=== PATIENT | female | born 1940 | race Caucasian/White ===

== ENCOUNTER → 2019-05-08 | Outpatient (CLI) | payer MEDICARE ==
[~2019-05-08] MED LIST: CATHETER FLUSH 10 ML SYR IV PRN; HOLD METFORMIN - RECEIVED CONTRAST 20 ML VIAL IV SCH; IOHEXOL 350 MG/ML 100 ML (OMNIPAQUE 350) VIAL IV ONE; NS 100 ML (IVPB) BAG IV ONE
--- NOTE | 2019-05-08 17:12 | Diagnostic Imaging Report ---
PROCEDURE: CT abdomen and pelvis with contrast. TECHNIQUE: Multiple contiguous axial images were obtained through the abdomen and pelvis after administration of intravenous contrast. Auto Exposure Controls were utilized during the CT exam to meet ALARA standards for radiation dose reduction. INDICATION: Left ovarian mass versus cyst seen on outside ultrasound. History of melanoma, hysterectomy. COMPARISON: None. FINDINGS: The lung bases are clear. The heart is normal in size. There is no pericardial effusion. The liver demonstrates no focal lesions. The spleen appears normal. The pancreas is normal. The adrenal glands appear normal. The kidneys are unremarkable with no hydronephrosis or masses seen. The bowel loops are nondistended without obstruction seen. The appendix is not seen. No secondary findings of appendicitis are seen. There is lluc-uy-[id number] stool in the colon. There is diverticulosis of the sigmoid colon without diverticulitis. There is a small amount of free fluid in the pelvis. Clips are noted in the pelvis. No lymphadenopathy is seen. There is heterogeneous increased density in the left abdominal omentum, concerning for caking and metastatic disease. The ovaries are seen bilaterally, with no significant enlargement or solid masses, although there is mild adjacent free fluid. There are degenerative changes in the spine with no acute osseous abnormality seen. IMPRESSION: 1. Left abdominal omental caking, concerning for metastatic disease. A primary mass is not identified, although there is mild free fluid in the pelvis. Please correlate with previous outside ultrasound. 2. Colonic diverticulosis without diverticulitis. Dictated by: Dictated on workstation # [id number]
== END ==
LOC: RAD FS 16:05
PROVIDERS: ATTEND Family Medicine
DX: N83.8 Other noninflammatory disorders of ovary, fallopian tube and broad ligament (principal); K66.8 Other specified disorders of peritoneum; K57.30 Diverticulosis of large intestine without perforation or abscess without bleeding; Z90.710 Acquired absence of both cervix and uterus; Z85.820 Personal history of malignant melanoma of skin
CPT/HCPCS: 74177

== ENCOUNTER → 2019-05-30 | Outpatient (CLI) | payer MEDICARE ==
[~2019-05-30] VITALS: Ht 154.9 cm; Wt 70.1 kg
[~2019-05-30] MED LIST changes: +ALPR0.5T PO; +ATOR10TA66 PO; +CALC600T12 PO; +CATHETER FLUSH 10 ML SYR IV SCH; -HOLD METFORMIN - RECEIVED CONTRAST 20 ML VIAL IV SCH; +HYDR-3812 PO; +HYDR12.5 PO; +HYDROcodone/APAP 5 MG/325 MG (LORTAB) TAB PO PRN; -IOHEXOL 350 MG/ML 100 ML (OMNIPAQUE 350) VIAL IV ONE; +LIDOCAINE 1% INJ 20 ML 20 ML VIAL INJ ONE; +LISI40TA PO; +MELO15TA39 PO; +MIDAZOLAM 2 MG/2 ML (VERSED) VIAL IVP ONE; +MULT-178 PO; -NS 100 ML (IVPB) BAG IV ONE; +NS IV 1000 ML 1,000 ML IV STA; +fentaNYL INJECTION 100 MCG/2 ML AMP IVP ONE
--- NOTE | 2019-05-30 07:00 | NUR ---
PATIENT IN ROOM WITH FAMILY PRESENT. ORIENTED TO ROOM AND CALL LIGHT. VITAL SIGNS STABLE ON ROOM AIR.
[2019-05-30 09:05] LABS: BASOPHILS # (AUTO) 0.1 10^3/uL (0.0-0.1); BASOPHILS % (AUTO) 1 % (0-10); EOSINOPHILS # (AUTO) 0.1 10^3/uL (0.0-0.3); EOSINOPHILS % (AUTO) 1 % (0-10); HEMATOCRIT 39 % (35-52); HEMOGLOBIN 12.8 G/DL (11.5-16.0); LYMPHOCYTES # (AUTO) 2.4 X 10^3 (1.0-4.0); LYMPHOCYTES % (AUTO) 36 % (12-44); MEAN CORPUSCULAR HEMOGLOBIN 30 PG (25-34); MEAN CORPUSCULAR HGB CONC 33 G/DL (32-36); MEAN CORPUSCULAR VOLUME 91 FL (80-99); MONOCYTES # (AUTO) 0.6 X 10^3 (0.0-1.0); MONOCYTES % (AUTO) 9 % (0-12); NEUTROPHILS # (AUTO) 3.6 X 10^3 (1.8-7.8); NEUTROPHILS % (AUTO) 53 % (42-75); PLATELET COUNT 316 10^3/uL (130-400); RED CELL DISTRIBUTION WIDTH 14.8 % (10.0-14.5); WHITE BLOOD COUNT 6.8 10^3/uL (4.3-11.0)
[2019-05-30 09:17] LABS: INR 0.9 (0.8-1.4); PROTHROMBIN TIME PATIENT 12.8 SEC (12.2-14.7)
[2019-05-30 09:45] VITALS: BP 171/72
[2019-05-30 09:50] VITALS: BP 155/65
[2019-05-30 09:55] VITALS: BP 141/57
[2019-05-30 10:10] VITALS: BP 154/86
--- NOTE | 2019-05-30 10:35 | NUR ---
PATIENT SITTING UP IN BED WITH DRINK OF WATER. AT BEDSIDE. PATIENT STATES NO PAIN OR NEEDS AT THIS TIME. WILL CONTINUE TO MONITOR.
[2019-05-30 10:43] VITALS: BP 134/78
--- NOTE | 2019-05-30 10:54 | Pre-Op Note & Conscious Sedat ---
Pre-Operative Progress Note H&P Reviewed The H&P was reviewed, patient examined and no changes noted. Date H&P Reviewed: May 30, 2019 Time H&P Reviewed: 09:00 Pre-Op Diagnosis: abdominal mass Conscious Sedation Pre-Proced Time 09:00 ASA Score 2 For ASA 3 and 4: Consider anesthesia and medical clearance. Also, for patients with a history of failed moderate sedation consider anesthesia. Airway Lungs Heart ASA score ASA 1: a normal healthy patient ASA 2: a patient with a mild systemic disease (mid diabetes, controlled hypertension, obesity ASA 3: a patient with a severe systemic disease that limits activity (angina, COPD, prior Myocardial infarction) ASA 4: a patient with an incapacitating disease that is a constant threat to life (CHF, renal failure) ASA 5: a moribund patient not expected to survive 24 hrs. (ruptured aneurysm) ASA 6: a declared brain- patient whose organs are being harvested. For emergent operations, add the letter E after the classification Mallampati Classification Grade 2 Sedation Plan Analgesia, Amnesia, Plan communicated to team members, Discussed options with patient/fam, Discussed risks with patient/fam The patient is an appropriate candidate to undergo the planned procedure, sedation, and anesthesia. The patient immediately re-assessed prior to indication. EVERETTE IRAHETA MD May 30, 2019 10:54
--- NOTE | 2019-05-30 11:03 | Diagnostic Imaging Report ---
INDICATION: Abnormal prior CT demonstrating a questionable omental caking. Patient presents for CT-guided biopsy. FINDINGS: Patient was brought to the CT suite, placed on table in the prone position. Axial imaging of the abdomen was performed to evaluate appropriate entry site. Study was performed utilizing conscious sedation with radiology nursing and constant patient monitoring. Patient was administered a total of 100 mcg of fentanyl intravenously and 1 mg of Versed intravenously. Total procedure time was 6 minutes. Anterior abdomen was prepped and draped in the usual sterile fashion. A small amount of 1% lidocaine was utilized for local anesthesia. 18-gauge Temno needle was advanced, placed with its tip in the center of the area of questionable omental caking in the anterior left abdomen. Total of four core biopsies were obtained. Needle was withdrawn and hemostasis was obtained using manual compression. Patient tolerated the procedure well and left the department in stable condition. IMPRESSION: CT-guided biopsy of the area of omental caking in the anterior left abdomen, utilizing conscious sedation. Pathology results are currently pending. Dictated by: Dictated on workstation # [id number]
[2019-05-30 12:09] VITALS: BP 134/70
== END ==
LOC: RAD 06:48 → 4TH 06:50
PROVIDERS: ATTEND Nurse Practitioner Family
DX: R19.00 Intra-abdominal and pelvic swelling, mass and lump, unspecified site (principal)
CPT/HCPCS: 36415; 77012; 85025; 85610; 85730; 87081; 88307; 88341; 88342; 88360; 99156

== ENCOUNTER 2019-06-16 05:59 | Outpatient (CLI) | payer MEDICARE ==
[~2019-06-16] VITALS: Ht 154.9 cm; Wt 70.1 kg
[~2019-06-16 05:59] MED LIST changes: -ALPR0.5T PO; -CALC600T12 PO; -CATHETER FLUSH 10 ML SYR IV PRN; -CATHETER FLUSH 10 ML SYR IV SCH; -HYDR-3812 PO; -HYDROcodone/APAP 5 MG/325 MG (LORTAB) TAB PO PRN; -LIDOCAINE 1% INJ 20 ML 20 ML VIAL INJ ONE; -MIDAZOLAM 2 MG/2 ML (VERSED) VIAL IVP ONE; -MULT-178 PO; -NS IV 1000 ML 1,000 ML IV STA; -fentaNYL INJECTION 100 MCG/2 ML AMP IVP ONE
[2019-06-16] MEDS ORDERED: MULT-178 PO (16:21)
[2019-06-16] MEDS ORDERED: CALC600T12 PO (16:21)
== END 2019-06-16 16:32 | disposition home or self-care (01) ==
LOC: PREOP 05:59
PROVIDERS: ATTEND Surgery
DX: Z01.818 Encounter for other preprocedural examination (principal)

== ENCOUNTER → 2019-06-18 | Outpatient (CLI) | payer MEDICARE ==
[~2019-06-18] MED LIST changes: +ALPR0.5T PO; +CALC600T12 PO; +CATHETER FLUSH 10 ML SYR IV PRN; +HOLD METFORMIN - RECEIVED CONTRAST 20 ML VIAL IV SCH; +HYDR-3812 PO; +IOHEXOL 350 MG/ML 100 ML (OMNIPAQUE 350) VIAL IV ONE; +MULT-178 PO; +NS 100 ML (IVPB) BAG IV ONE
--- NOTE | 2019-06-18 11:12 | Diagnostic Imaging Report ---
PROCEDURE: CT chest with contrast only. TECHNIQUE: Multiple contiguous axial images were obtained through the chest after administration of intravenous contrast. Auto Exposure Controls were utilized during the CT exam to meet ALARA standards for radiation dose reduction. INDICATION: Patient with history of ovarian cancer and melanoma. Evaluate for metastatic disease. COMPARISON: None. FINDINGS: TRACHEA AND MAIN BRONCHI: Patent without evidence of tracheal or endobronchial lesion. LUNGS AND PLEURA: There is a 2 mm pulmonary nodule in the right upper lobe (image 33, series 3). There is a 7 mm groundglass nodule in the left lower lobe (image 75-76, series 3). There is a 4 mm calcified pulmonary nodule in the left lower lobe in the costophrenic angle. No pleural effusion or pneumothorax. MEDIASTINUM AND VIRAJ: Visualized thyroid gland is normal. No mediastinal or hilar lymphadenopathy is demonstrated. Calcified subcarinal lymph nodes likely represent sequela of prior granulomatous disease. Esophagus is nondistended. HEART AND VESSELS: Heart is normal in size. No pericardial effusion. Thoracic aorta is nonaneurysmal. DIAPHRAGM AND UPPER ABDOMEN: There is an oval hyperdense focus in the right hepatic dome which measures 5 x 6 mm (image 77, series 2). This is not definitely seen on prior imaging. Ill-defined scattered soft tissue density is demonstrated in the omental fat of the left mid abdomen. Incidental note is made of a punctate nonobstructing renal calculus in the left interpolar region collecting system. CHEST WALL: Unremarkable. BONES: Mild degenerative changes involve the spine. No acute osseous abnormality. No concerning osseous lesion. IMPRESSION: There is a 7 mm groundglass nodule in the left lower lobe. Continued surveillance is recommended with followup CT in three to six months to confirm persistence, per Fleischner Society recommendations (Radiology, 2017 José;284(1):228-243). There is also a 2 mm nodule in the right upper lobe, which can be reevaluated at that time. There is an ill-defined sub-centimeter hyperdensity in the right hepatic dome, which is indeterminate based on today's exam. This is not seen on the prior exam and is either new or is visualized today secondary to phase of contrast imaging. Given the patient's history of malignancy, follow-up hepatic protocol MRI is recommended in 3-6 months, per [employer] Incidental Findings Committee white paper management recommendations (JACR 2017;14:4457-9137). Omental caking is again demonstrated in the left abdomen. Nonobstructing left renal calculus. Dictated by: Dictated on workstation # [id number]
== END ==
LOC: RAD FS 08:09
PROVIDERS: ATTEND Internal Medicine Hematology & Oncology
DX: C56.9 Malignant neoplasm of unspecified ovary (principal); C43.9 Malignant melanoma of skin, unspecified; R91.8 Other nonspecific abnormal finding of lung field; K76.89 Other specified diseases of liver; N20.0 Calculus of kidney; K66.8 Other specified disorders of peritoneum
CPT/HCPCS: 71260

== ENCOUNTER 2019-06-19 08:22 | Day surgery (SDC) | payer MEDICARE ==
[2019-06-19] VITALS (8 sets, daily range): BP systolic 133–147; BP diastolic 66–75
[~2019-06-19] VITALS: Ht 154.9 cm; Wt 70.1 kg
[~2019-06-19 08:22] MED LIST changes: -ALPR0.5T PO; -CATHETER FLUSH 10 ML SYR IV PRN; -HOLD METFORMIN - RECEIVED CONTRAST 20 ML VIAL IV SCH; -HYDR-3812 PO; -IOHEXOL 350 MG/ML 100 ML (OMNIPAQUE 350) VIAL IV ONE; -NS 100 ML (IVPB) BAG IV ONE
[2019-06-19] MEDS ORDERED: ceFAZolin 2 GM/50 ML NS 50 ML IV ONE (08:45)
[2019-06-19] MEDS ORDERED: CATHETER FLUSH 10 ML SYR IV PRN (09:15)
[2019-06-19] MEDS ORDERED: MIDAZOLAM 2 MG/2 ML (VERSED) VIAL ONE ×2 (09:23→09:59)
[2019-06-19] MEDS ORDERED: LACTATED RINGERS 1,000 ML IV PRN (09:40)
[2019-06-19] MEDS ORDERED: MIDAZOLAM 2 MG/2 ML (VERSED) VIAL IVP ONE (09:45)
[2019-06-19] MEDS ORDERED: proPOfol 200 MG/20 ML (DIPRIVAN) VIAL IV ONE (09:58)
[2019-06-19] MEDS ORDERED: fentaNYL INJECTION 100 MCG/2 ML AMP ONE (09:59)
[2019-06-19] MEDS ORDERED: LIDOCAINE/EPI 1%-1:100,000 (XYLOCAINE) 20ML ONE (10:12)
[2019-06-19] MEDS ORDERED: HEParin (CENTRAL IV FLUSH) 500 UNIT/5 ML SYR ONE (10:12)
--- NOTE | 2019-06-19 10:22 | Progress Note-Pre Operative ---
Pre-Operative Progress Note H&P Reviewed The H&P was reviewed, patient examined and no changes noted. Date Seen by Provider: Jun 19, 2019 Time Seen by Provider: 09:00 Date H&P Reviewed: Jun 19, 2019 Time H&P Reviewed: 08:50 Pre-Operative Diagnosis: ovarian cancer KARINE RIZVI APRN Jun 19, 2019 10:22
[2019-06-19] MEDS ORDERED: HYDR-3812 PO (10:26)
--- NOTE | 2019-06-19 10:26 | Discharge Inst-Surgical ---
D/C Lap Instructions-KIDO Reconcile Patient Problems Problems Reviewed?: Yes New, Converted, or Re-Newed RX: RX on Chart Follow Up Appt in 2 weeks Activity as tolerated No driving for 24 hours No driving while on pain medications Incentive Spirometry use every 2 hours while awake Regular Diet Symptoms to Report: Fever over 101 degree F, Nausea/Vomiting Infection Signs and Symptoms to report: Increased redness, Foul odor of wound, Increased drainage Bathing instructions: May shower Operative Area Clean/Dry; Keep incision clean/dry If any problems/questions: Contact your physician or go to Emergency Room KARINE RIZVI APRN Jun 19, 2019 10:26
[2019-06-19] MEDS ORDERED: HYDROcodone/APAP 5 MG/325 MG (LORTAB) TAB PO PRN (10:30)
[2019-06-19] MEDS ORDERED: morphine INJ 4 MG/ML 1 ML (VIAL/SYRINGE) IV PRN (10:30)
[2019-06-19] MEDS ORDERED: ONDANSETRON 4 MG/2 ML (SDV) Z0FRAN IVP PRN ×2 (10:30→11:45)
[2019-06-19] MEDS ORDERED: LIDOCAINE PF 2% 5 ML (XYLOCAINE) VIAL ONE (10:40)
[2019-06-19] MEDS ORDERED: ONDANSETRON 4 MG/2 ML (SDV) Z0FRAN ONE (11:02)
--- NOTE | 2019-06-19 11:21 | Progress Note-Post Operative ---
Post-Operative Progess Note Surgeon (s)/Data Analytics Specialist (s) Surgeon TUNDE GUEVARA MD Data Analytics Specialist: vinnie cintron SYNTHETIC DEPARTMENT SUPERVISOR Pre-Operative Diagnosis ovarian cancer Post-Operative Diagnosis same Procedure & Operative Findings Date of Procedure 06/19/19 Procedure Performed/Findings placement groshong implantable catheter under flouroscopy. Anesthesia Type MAC with local Estimated Blood Loss Estimated blood loss (mL): minimal Specimens/Packing Specimens Removed none TUNDE GUEVARA MD Jun 19, 2019 11:20
[2019-06-19] MEDS ORDERED: MEPERIDINE (DEMEROL) INJ 50 MG/ML IVP ONE (11:45)
[2019-06-19] MEDS ORDERED: morphine INJ 10 MG/ML 1ML (SYR OR VIAL) IVP ONE (11:45)
--- NOTE | 2019-06-19 12:02 | Diagnostic Imaging Report ---
Indication: Groshong catheter placement. Time of exam: 11:50 AM No prior studies available for comparison. Left chest wall catheter has tip overlying the SVC. No pneumothorax is identified. The lungs are clear. No effusion. Impression: Chest wall catheter placement. No complicating features are detected. Dictated by: Dictated on workstation # [id number]
[2019-06-19] MEDS ORDERED: ALPR0.5T PO (12:29)
--- NOTE | 2019-06-19 12:42 | Anesthesia-General Post-Op ---
MAC Patient Condition Mental Status/LOC: Same as Preop Cardiovascular: Satisfactory Nausea/Vomiting: Absent Respiratory: Satisfactory Pain: Controlled Complications: Absent Post Op Complications Complications None Follow Up Care/Instructions Patient Instructions None needed. Anesthesiology Discharge Order Discharge Order Patient is doing well, no complaints, stable vital signs, no apparent adverse anesthesia problems. No complications reported per nursing. JOVANNA SANCHEZ CRNA Jun 19, 2019 12:42
--- NOTE | 2019-06-19 18:55 | Diagnostic Imaging Report ---
INDICATION: Fluoroscopy during port placement. FINDINGS: Fluoroscopy was provided in the OR during port placement. 8 seconds of fluoroscopy was utilized. Left-sided port appears to have the tip overlying the SVC. IMPRESSION: Fluoroscopy for port placement. Dictated by: Dictated on workstation # [id number]
--- NOTE | 2019-06-19 20:03 | OPERATIVE REPORT ---
DATE OF SERVICE: 06/19/2019 ATTENDING PRIMARY CARE PHYSICIAN: Dr. Caitie Olson. PREOPERATIVE DIAGNOSIS: Ovarian cancer. POSTOPERATIVE DIAGNOSIS: Ovarian cancer. PROCEDURE: Placement of left subclavian Groshong implantable catheter under fluoroscopy. SURGEON: Tunde Guevara MD CLASSROOM TECHNOLOGY TECHNICIAN: Dc Meléndez APRN. ANESTHESIA: Monitored anesthesia care with local. ESTIMATED BLOOD LOSS: Minimal. FINDINGS: Catheter tip at superior vena cava - right atrial junction. DISPOSITION: The patient tolerated the procedure well. INDICATIONS: The patient is a 78-year-old female who was referred over to us for a left abdominal mass identified on a CT scan as well as ultrasound. The only symptom that she had been experiencing was worsening abdominal bloating in the lower quadrants of the abdomen. 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 She was referred to oncology and she will undergo chemotherapy starting in one week and will need a Groshong implantable catheter. DESCRIPTION OF PROCEDURE: The patient was brought to the endoscopy suite, laid in the left lateral decubitus position. After adequate IV pain and sedating medications and monitored anesthesia care, the neck and chest were prepped and draped in standard surgical fashion. A 1% lidocaine with epinephrine was then used to anesthetize the left subclavian region. The left subclavian vein was then cannulated with drawing of venous blood. The guidewire was then inserted under fluoroscopy. A skin incision was then made using a 15-blade and the dilator and sheath were then introduced over the guidewire. The venous dilator and wire were then removed and the Groshong implantable catheter was placed under direct visualization under fluoroscopy until the catheter tip was at the superior vena cava - right atrial junction. The sheath was then removed. The skin incision was then extended laterally and a chest reservoir was then created between the subcutaneous fat and the anterior pectoralis fascia using blunt dissection as well as electrocautery. Good hemostasis was observed. The wire within the catheter was then removed. The catheter cut down to size and port placed onto the catheter. The port was then placed into the chest reservoir and sutured to the anterior pectoralis fascia using interrupted 3-0 Vicryl suture. The subcutaneous tissue was then reapproximated using 3-0 Vicryl interrupted subcutaneous sutures. Skin was closed using 4-0 Monocryl running subcuticular sutures. Wound was then cleaned and covered with Dermabond. The patient tolerated the procedure well. We will start IV and oral pain medication as well as a clear liquid diet. Once she is tolerating clears, has good pain control and is ambulating well, we will discharge her home. We will get a post-procedure chest x-ray and once placement is confirmed, the catheter may be accessed and used any time. Job ID: [id number] DocumentID: [id number] Dictated Date: 06/19/2019 11:31:00 Planisher Date: 06/19/2019 20:03:21 Dictated By: TUNDE GUEVARA MD
--- OUTSIDE RECORDS SUMMARY | 2019-06-19 23:24 | XMS REPORT | Continuity of Care Document ---
Author Organization Unknown Address Unknown Phone Unavailable Allergies There is no data. Medications There is no data. Problems There is no data. Procedures There is no data. Results Test Result Range LIPID PANEL - 04/25/19 08:48 CHOLESTEROL, TOTAL 195 mg/dL <200 HDL CHOLESTEROL 75 mg/dL >50 TRIGLYCERIDES 142 mg/dL <150 LDL-CHOLESTEROL 96 mg/dL (calc) NRG CHOL/HDLC RATIO 2.6 (calc) <5.0 NON HDL CHOLESTEROL 120 mg/dL (calc) <130 CMP - 04/25/19 08:48 GLUCOSE 91 mg/dL 65-99 UREA NITROGEN (BUN) 22 mg/dL 7-25 CREATININE 0.83 mg/dL 0.60-0.93 eGFR NON-AFR. [place] 67 mL/min/1.73m2 > OR=60 eGFR 78 mL/min/1.73m2 > OR=60 BUN/CREATININE RATIO NOT APPLICABLE (calc) 6-22 SODIUM 139 mmol/L 135-146 POTASSIUM 4.3 mmol/L 3.5-5.3 CHLORIDE 101 mmol/L 98-110 CARBON DIOXIDE 30 mmol/L 20-32 CALCIUM 10.0 mg/dL 8.6-10.4 PROTEIN, TOTAL 6.8 g/dL 6.1-8.1 ALBUMIN 4.3 g/dL 3.6-5.1 GLOBULIN 2.5 g/dL (calc) 1.9-3.7 ALBUMIN/GLOBULIN RATIO 1.7 (calc) 1.0-2.5 BILIRUBIN, TOTAL 0.5 mg/dL 0.2-1.2 ALKALINE PHOSPHATASE 65 U/L 33-130 AST 19 U/L 10-35 ALT 15 U/L 6-29 Encounters ACCT No. Visit Date/Time Discharge Status Pt. Type Provider Facility Loc./Unit Complaint [id number] 06/13/2019 13:30:00 06/13/2019 23:59:59 [facility] Outpatient [facility] [id number] 04/25/2019 08:45:00 Document Registration
== END 2019-06-19 13:05 | disposition home or self-care (01) ==
LOC: SDC 08:22
PROVIDERS: ATTEND Surgery
DX: C56.9 Malignant neoplasm of unspecified ovary (principal); C79.9 Secondary malignant neoplasm of unspecified site; I10 Essential (primary) hypertension; E78.00 Pure hypercholesterolemia, unspecified; E78.5 Hyperlipidemia, unspecified; M19.91 Primary osteoarthritis, unspecified site; K21.9 Gastro-esophageal reflux disease without esophagitis; Z79.899 Other long term (current) drug therapy; Z85.820 Personal history of malignant melanoma of skin
CPT/HCPCS: 71045; 87081

== ENCOUNTER → 2019-08-25 | Outpatient (CLI) | payer MEDICARE ==
[~2019-08-25] MED LIST changes: +ALPR0.5T PO; +BARIUM SUSPENSION 2.1% (VANILLA SILQ) 450 ML PO ONE; +CATHETER FLUSH 10 ML SYR IV PRN; +HOLD METFORMIN - RECEIVED CONTRAST 20 ML VIAL IV SCH; +HYDR-3812 PO; +IOHEXOL 350 MG/ML 100 ML (OMNIPAQUE 350) VIAL IV ONE; +NS 100 ML (IVPB) BAG IV ONE
--- NOTE | 2019-08-25 14:28 | Diagnostic Imaging Report ---
PROCEDURE: CT chest, abdomen, and pelvis with contrast. TECHNIQUE: Multiple contiguous axial images were obtained through the chest, abdomen, and pelvis after the administration of intravenous contrast. Auto Exposure Controls were utilized during the CT exam to meet ALARA standards for radiation dose reduction. INDICATION: Left ovarian carcinoma. Correlation is made with prior CT chest from 06/18/[address] abdomen and pelvis from 05/08/2019. CT CHEST: FINDINGS: Left chest wall port has tip at the SVC-right atrial junction. No axillary lymphadenopathy is seen. No mediastinal or hilar lymphadenopathy is detected. No pericardial or pleural fluid is identified. Tiny nodule in the right upper lobe described on prior exam appears to be stable at approximately 2 mm. This is seen on image 16 series 2. Groundglass density noted in left lower lobe is stable at 7 mm, image 43 series 2. No new parenchymal abnormality is detected. IMPRESSION: Stable CT chest since exam from 06/18/2019. CT abdomen and pelvis: FINDINGS: The hyperdensity in the dome of the right lobe of the liver is not appreciated on today's study. No discrete liver mass is detected. The gallbladder is unremarkable. No biliary ductal dilatation is seen. Pancreas and spleen are unremarkable. No adrenal mass is detected. Tiny nonobstructing calculus in the left kidney is noted. Aorta is nonaneurysmal. No central retroperitoneal or mesenteric lymphadenopathy is detected. The area of nodularity and increased density involving the omentum of the left anterior abdomen persists but is much less prominent on today's study when compared with prior. The bowel loops are normal caliber. There is diverticulosis of the sigmoid but no evidence of acute diverticulitis. No free fluid or fluid collection is seen. No pelvic lymphadenopathy is detected. The bladder is unremarkable. Bony structures are unremarkable. IMPRESSION: 1. Previously noted hypodensity in the dome of the right lobe of the liver is not seen on today's study. 2. Omental caking in left abdomen is much less prominent on today's study and barely visible. No ascites is seen. 3. Uncomplicated diverticulosis. 4. No evidence of abdominal or pelvic lymphadenopathy. Dictated by: Dictated on workstation # [id number]
== END ==
LOC: RAD 12:49
PROVIDERS: ATTEND Internal Medicine Hematology & Oncology
DX: C56.2 Malignant neoplasm of left ovary (principal); C78.6 Secondary malignant neoplasm of retroperitoneum and peritoneum; K57.30 Diverticulosis of large intestine without perforation or abscess without bleeding
CPT/HCPCS: 71260; 74177

== ENCOUNTER 2019-08-28 08:53 | Outpatient (RCR) | payer MEDICARE ==
[2019-06-11 16:10] LABS: BASOPHILS % (AUTO) 1 % (0-10); EOSINOPHILS # (AUTO) 0.1 10^3/uL (0.0-0.3); EOSINOPHILS % (AUTO) 1 % (0-10); HEMATOCRIT 39 % (35-52); HEMOGLOBIN 12.6 G/DL (11.5-16.0); LYMPHOCYTES # (AUTO) 2.4 X 10^3 (1.0-4.0); LYMPHOCYTES % (AUTO) 31 % (12-44); MEAN CORPUSCULAR HEMOGLOBIN 29 PG (25-34); MEAN CORPUSCULAR HGB CONC 33 G/DL (32-36); MEAN CORPUSCULAR VOLUME 90 FL (80-99); MEAN PLATELET VOLUME 9.7 FL (7.4-10.4); MONOCYTES # (AUTO) 0.5 X 10^3 (0.0-1.0); MONOCYTES % (AUTO) 6 % (0-12); NEUTROPHILS # (AUTO) 4.8 X 10^3 (1.8-7.8); NEUTROPHILS % (AUTO) 61 % (42-75); PLATELET COUNT 328 10^3/uL (130-400); RED CELL DISTRIBUTION WIDTH 14.9 % (10.0-14.5); WHITE BLOOD COUNT 7.8 10^3/uL (4.3-11.0)
[2019-06-11 16:37] LABS: ALBUMIN 4.4 GM/DL (3.2-4.5); BILIRUBIN,TOTAL 0.3 MG/DL (0.1-1.0); CALCIUM 10.1 MG/DL (8.5-10.1); CREATININE SERUM 0.98 MG/DL (0.60-1.30); POTASSIUM 3.7 MMOL/L (3.6-5.0); TOTAL PROTEIN 7.3 GM/DL (6.4-8.2)
[2019-07-17 09:18] LABS: BASOPHILS % (AUTO) 0 % (0-10); EOSINOPHILS % (AUTO) 0 % (0-10); HEMATOCRIT 37 % (35-52); HEMOGLOBIN 12.2 G/DL (11.5-16.0); LYMPHOCYTES # (AUTO) 1.9 X 10^3 (1.0-4.0); LYMPHOCYTES % (AUTO) 14 % (12-44); MEAN CORPUSCULAR HEMOGLOBIN 30 PG (25-34); MEAN CORPUSCULAR HGB CONC 33 G/DL (32-36); MEAN CORPUSCULAR VOLUME 90 FL (80-99); MEAN PLATELET VOLUME 9.2 FL (7.4-10.4); MONOCYTES # (AUTO) 0.2 X 10^3 (0.0-1.0); MONOCYTES % (AUTO) 1 % (0-12); NEUTROPHILS # (AUTO) 11.4 X 10^3 (1.8-7.8); NEUTROPHILS % (AUTO) 85 % (42-75); PLATELET COUNT 283 10^3/uL (130-400); RED CELL DISTRIBUTION WIDTH 14.9 % (10.0-14.5); WHITE BLOOD COUNT 13.4 10^3/uL (4.3-11.0)
[2019-07-17 09:44] LABS: ALANINE AMINOTRANSFERASE 21 U/L (0-55); ALBUMIN 4.5 GM/DL (3.2-4.5); ALKALINE PHOSPHATASE 71 U/L (40-136); BILIRUBIN,TOTAL 0.2 MG/DL (0.1-1.0); BUN/CREATININE RATIO 27; CALCIUM 10.1 MG/DL (8.5-10.1); CARBON DIOXIDE 25 MMOL/L (21-32); CHLORIDE 101 MMOL/L (98-107); CREATININE SERUM 0.82 MG/DL (0.60-1.30); GFR ESTIMATED > 60; GLUCOSE 177 MG/DL (70-105); POTASSIUM 3.9 MMOL/L (3.6-5.0); SODIUM 137 MMOL/L (135-145); TOTAL PROTEIN 7.5 GM/DL (6.4-8.2)
[2019-08-07 09:07] LABS: BASOPHILS % (AUTO) 0 % (0-10); EOSINOPHILS % (AUTO) 0 % (0-10); HEMATOCRIT 37 % (35-52); HEMOGLOBIN 12.2 G/DL (11.5-16.0); LYMPHOCYTES # (AUTO) 2.2 X 10^3 (1.0-4.0); LYMPHOCYTES % (AUTO) 19 % (12-44); MEAN CORPUSCULAR HEMOGLOBIN 29 PG (25-34); MEAN CORPUSCULAR HGB CONC 33 G/DL (32-36); MEAN CORPUSCULAR VOLUME 89 FL (80-99); MEAN PLATELET VOLUME 8.9 FL (7.4-10.4); MONOCYTES # (AUTO) 0.2 X 10^3 (0.0-1.0); MONOCYTES % (AUTO) 2 % (0-12); NEUTROPHILS % (AUTO) 79 % (42-75); PLATELET COUNT 340 10^3/uL (130-400); RED CELL DISTRIBUTION WIDTH 15.7 % (10.0-14.5); WHITE BLOOD COUNT 11.5 10^3/uL (4.3-11.0)
[2019-08-07 09:25] LABS: ALANINE AMINOTRANSFERASE 17 U/L (0-55); ALBUMIN 4.6 GM/DL (3.2-4.5); ALKALINE PHOSPHATASE 78 U/L (40-136); BILIRUBIN,TOTAL 0.2 MG/DL (0.1-1.0); BUN/CREATININE RATIO 24; CALCIUM 10.6 MG/DL (8.5-10.1); CARBON DIOXIDE 24 MMOL/L (21-32); CHLORIDE 101 MMOL/L (98-107); CREATININE SERUM 1.02 MG/DL (0.60-1.30); GFR ESTIMATED 52; GLUCOSE 201 MG/DL (70-105); POTASSIUM 4.2 MMOL/L (3.6-5.0); SODIUM 137 MMOL/L (135-145); TOTAL PROTEIN 7.7 GM/DL (6.4-8.2)
[~2019-08-28] VITALS: Ht 154.9 cm; Wt 68.5 kg
[~2019-08-28 08:53] MED LIST changes: -BARIUM SUSPENSION 2.1% (VANILLA SILQ) 450 ML PO ONE; -CATHETER FLUSH 10 ML SYR IV PRN; +FAMOTIDINE 20MG/2ML IV (CANCER CTR) IV SCH; +FOSAPREPITANT DIMEGLUMINE 150 MG in NS (IVPB) CANCER CENTER ONLY 150 ML IV SCH; -HOLD METFORMIN - RECEIVED CONTRAST 20 ML VIAL IV SCH; -IOHEXOL 350 MG/ML 100 ML (OMNIPAQUE 350) VIAL IV ONE; -NS 100 ML (IVPB) BAG IV ONE; +NS IV 1000 ML (CANCER CTR) IV SCH; +PALONOSETRON HCL 0.25 MG, DEXAMETHASONE INJECTION 10 MG in NS (IVPB) CANCER CENTER 50 ML IV SCH; +diphenhydrAMINE 25 MG TAB (BENADRYL) CANCER CENTER PO SCH
[2019-08-28 09:36] LABS: BASOPHILS % (AUTO) 0 % (0-10); EOSINOPHILS % (AUTO) 0 % (0-10); HEMATOCRIT 35 % (35-52); HEMOGLOBIN 11.2 G/DL (11.5-16.0); LYMPHOCYTES # (AUTO) 3.1 X 10^3 (1.0-4.0); LYMPHOCYTES % (AUTO) 33 % (12-44); MEAN CORPUSCULAR HEMOGLOBIN 30 PG (25-34); MEAN CORPUSCULAR HGB CONC 33 G/DL (32-36); MEAN CORPUSCULAR VOLUME 92 FL (80-99); MONOCYTES # (AUTO) 1.4 X 10^3 (0.0-1.0); MONOCYTES % (AUTO) 15 % (0-12); NEUTROPHILS # (AUTO) 4.8 X 10^3 (1.8-7.8); NEUTROPHILS % (AUTO) 52 % (42-75); PLATELET COUNT 377 10^3/uL (130-400); WHITE BLOOD COUNT 9.4 10^3/uL (4.3-11.0)
[2019-08-28 10:01] LABS: ALANINE AMINOTRANSFERASE 15 U/L (0-55); ALBUMIN 4.3 GM/DL (3.2-4.5); ALKALINE PHOSPHATASE 81 U/L (40-136); BILIRUBIN,TOTAL 0.2 MG/DL (0.1-1.0); BUN/CREATININE RATIO 22; CALCIUM 9.8 MG/DL (8.5-10.1); CARBON DIOXIDE 26 MMOL/L (21-32); CHLORIDE 102 MMOL/L (98-107); CREATININE SERUM 0.81 MG/DL (0.60-1.30); GFR ESTIMATED > 60; GLUCOSE 83 MG/DL (70-105); POTASSIUM 4.5 MMOL/L (3.6-5.0); SODIUM 138 MMOL/L (135-145)
== END 2019-09-09 | disposition home or self-care (01) ==
LOC: ONC 08:53
PROVIDERS: ATTEND Internal Medicine Hematology & Oncology
DX: Z51.11 Encounter for antineoplastic chemotherapy (principal); C56.9 Malignant neoplasm of unspecified ovary
CPT/HCPCS: 36415; 36591; 80053; 82728; 85025; 86304; 96367; 96375; 96413; 96415; 96417; 99214

== ENCOUNTER → 2019-09-11 | Outpatient (CLI) | payer MEDICARE ==
[~2019-09-11] MED LIST changes: -FAMOTIDINE 20MG/2ML IV (CANCER CTR) IV SCH; -FOSAPREPITANT DIMEGLUMINE 150 MG in NS (IVPB) CANCER CENTER ONLY 150 ML IV SCH; -NS IV 1000 ML (CANCER CTR) IV SCH; -PALONOSETRON HCL 0.25 MG, DEXAMETHASONE INJECTION 10 MG in NS (IVPB) CANCER CENTER 50 ML IV SCH; -diphenhydrAMINE 25 MG TAB (BENADRYL) CANCER CENTER PO SCH
--- NOTE | 2019-09-11 16:00 | Diagnostic Imaging Report ---
INDICATION: Cough and congestion for two weeks. TIME OF EXAM: 03:52 p.m. COMPARISON: Correlation is made with prior chest from 06/19/2019. FINDINGS: Left chest wall port has tip overlying the SVC. Heart size is stable. Lungs appear to be clear. No infiltrates are seen. There is no effusion or pneumothorax. IMPRESSION: No acute cardiopulmonary process is detected. Dictated by: Dictated on workstation # [id number]
== END ==
LOC: RAD FS 15:47
PROVIDERS: ATTEND Nurse Practitioner Family
DX: J18.1 Lobar pneumonia, unspecified organism (principal); Z95.828 Presence of other vascular implants and grafts
CPT/HCPCS: 71046

== ENCOUNTER 2019-09-18 10:37 | Outpatient (RCR) | payer MEDICARE ==
[2019-07-03 11:12] LABS: CALCIUM 9.9 MG/DL (8.5-10.1); CREATININE SERUM 0.96 MG/DL (0.60-1.30); POTASSIUM 4.9 MMOL/L (3.6-5.0)
[2019-07-03 11:13] LABS: HEMATOCRIT 36 % (35-52); HEMOGLOBIN 11.8 G/DL (11.5-16.0); MEAN CORPUSCULAR HEMOGLOBIN 30 PG (25-34); MEAN CORPUSCULAR HGB CONC 33 G/DL (32-36); MEAN CORPUSCULAR VOLUME 91 FL (80-99); PLATELET COUNT 231 10^3/uL (130-400); RED CELL DISTRIBUTION WIDTH 14.5 % (10.0-14.5); WHITE BLOOD COUNT 3.8 10^3/uL (4.3-11.0)
[2019-07-03 11:14] LABS: BASOPHILS % (AUTO) 1 % (0-10); EOSINOPHILS # (AUTO) 0.1 10^3/uL (0.0-0.3); EOSINOPHILS % (AUTO) 3 % (0-10); LYMPHOCYTES # (AUTO) 1.6 X 10^3 (1.0-4.0); LYMPHOCYTES % (AUTO) 41 % (12-44); MEAN PLATELET VOLUME 10.1 FL (7.4-10.4); MONOCYTES # (AUTO) 0.1 X 10^3 (0.0-1.0); MONOCYTES % (AUTO) 3 % (0-12); NEUTROPHILS % (AUTO) 52 % (42-75)
[2019-07-10 10:12] LABS: BASOPHILS % (AUTO) 1 % (0-10); EOSINOPHILS % (AUTO) 2 % (0-10); HEMATOCRIT 36 % (35-52); HEMOGLOBIN 11.6 G/DL (11.5-16.0); LYMPHOCYTES % (AUTO) 62 % (12-44); MEAN CORPUSCULAR HEMOGLOBIN 30 PG (25-34); MEAN CORPUSCULAR HGB CONC 32 G/DL (32-36); MEAN CORPUSCULAR VOLUME 91 FL (80-99); MEAN PLATELET VOLUME 8.9 FL (7.4-10.4); MONOCYTES % (AUTO) 21 % (0-12); NEUTROPHILS % (AUTO) 13 % (42-75); PLATELET COUNT 303 10^3/uL (130-400); RED CELL DISTRIBUTION WIDTH 14.6 % (10.0-14.5); WHITE BLOOD COUNT 4.2 10^3/uL (4.3-11.0)
[2019-07-10 10:13] LABS: BASOPHILS # (AUTO) 0.1 10^3/uL (0.0-0.1); EOSINOPHILS # (AUTO) 0.1 10^3/uL (0.0-0.3); LYMPHOCYTES # (AUTO) 2.6 X 10^3 (1.0-4.0); MONOCYTES # (AUTO) 0.9 X 10^3 (0.0-1.0); NEUTROPHILS # (AUTO) 0.5 X 10^3 (1.8-7.8)
[2019-07-10 10:33] LABS: CREATININE SERUM 0.91 MG/DL (0.60-1.30)
[2019-07-10 10:34] LABS: CALCIUM 9.8 MG/DL (8.5-10.1)
[2019-07-24 09:45] LABS: HEMATOCRIT 35 % (35-52); HEMOGLOBIN 11.4 G/DL (11.5-16.0); MEAN CORPUSCULAR HEMOGLOBIN 29 PG (25-34); MEAN CORPUSCULAR HGB CONC 32 G/DL (32-36); MEAN CORPUSCULAR VOLUME 89 FL (80-99); WHITE BLOOD COUNT 3.8 10^3/uL (4.3-11.0)
[2019-07-24 09:46] LABS: BASOPHILS % (AUTO) 1 % (0-10); EOSINOPHILS # (AUTO) 0.1 10^3/uL (0.0-0.3); EOSINOPHILS % (AUTO) 2 % (0-10); LYMPHOCYTES # (AUTO) 2.2 X 10^3 (1.0-4.0); LYMPHOCYTES % (AUTO) 57 % (12-44); MEAN PLATELET VOLUME 9.7 FL (7.4-10.4); MONOCYTES # (AUTO) 0.1 X 10^3 (0.0-1.0); MONOCYTES % (AUTO) 4 % (0-12); NEUTROPHILS # (AUTO) 1.4 X 10^3 (1.8-7.8); NEUTROPHILS % (AUTO) 36 % (42-75); PLATELET COUNT 229 10^3/uL (130-400); RED CELL DISTRIBUTION WIDTH 14.6 % (10.0-14.5)
[2019-07-24 10:03] LABS: BUN/CREATININE RATIO 32; CARBON DIOXIDE 24 MMOL/L (21-32); CHLORIDE 95 MMOL/L (98-107); CREATININE SERUM 0.76 MG/DL (0.60-1.30); GFR ESTIMATED > 60; GLUCOSE 108 MG/DL (70-105); POTASSIUM 4.5 MMOL/L (3.6-5.0); SODIUM 135 MMOL/L (135-145)
[2019-07-31 09:39] LABS: HEMATOCRIT 35 % (35-52); HEMOGLOBIN 11.5 G/DL (11.5-16.0); MEAN CORPUSCULAR HEMOGLOBIN 30 PG (25-34); MEAN CORPUSCULAR VOLUME 91 FL (80-99); WHITE BLOOD COUNT 4.9 10^3/uL (4.3-11.0)
[2019-07-31 09:40] LABS: BASOPHILS # (AUTO) 0.1 10^3/uL (0.0-0.1); BASOPHILS % (AUTO) 1 % (0-10); EOSINOPHILS # (AUTO) 0.1 10^3/uL (0.0-0.3); EOSINOPHILS % (AUTO) 1 % (0-10); LYMPHOCYTES # (AUTO) 3.2 X 10^3 (1.0-4.0); LYMPHOCYTES % (AUTO) 66 % (12-44); MEAN CORPUSCULAR HGB CONC 33 G/DL (32-36); MEAN PLATELET VOLUME 8.8 FL (7.4-10.4); MONOCYTES % (AUTO) 21 % (0-12); NEUTROPHILS # (AUTO) 0.5 X 10^3 (1.8-7.8); NEUTROPHILS % (AUTO) 10 % (42-75); PLATELET COUNT 357 10^3/uL (130-400); RED CELL DISTRIBUTION WIDTH 15.4 % (10.0-14.5)
[2019-07-31 10:13] LABS: BUN/CREATININE RATIO 24; CALCIUM 9.9 MG/DL (8.5-10.1); CARBON DIOXIDE 25 MMOL/L (21-32); CHLORIDE 99 MMOL/L (98-107); CREATININE SERUM 0.78 MG/DL (0.60-1.30); GFR ESTIMATED > 60; GLUCOSE 100 MG/DL (70-105); POTASSIUM 4.5 MMOL/L (3.6-5.0); SODIUM 139 MMOL/L (135-145)
[2019-08-14 11:31] LABS: HEMATOCRIT 33 % (35-52); HEMOGLOBIN 10.9 G/DL (11.5-16.0); MEAN CORPUSCULAR HEMOGLOBIN 30 PG (25-34); MEAN CORPUSCULAR VOLUME 91 FL (80-99); WHITE BLOOD COUNT 3.5 10^3/uL (4.3-11.0)
[2019-08-14 11:32] LABS: BASOPHILS % (AUTO) 1 % (0-10); EOSINOPHILS % (AUTO) 1 % (0-10); LYMPHOCYTES # (AUTO) 1.9 X 10^3 (1.0-4.0); LYMPHOCYTES % (AUTO) 56 % (12-44); MEAN CORPUSCULAR HGB CONC 33 G/DL (32-36); MEAN PLATELET VOLUME 9.9 FL (7.4-10.4); MONOCYTES # (AUTO) 0.1 X 10^3 (0.0-1.0); MONOCYTES % (AUTO) 4 % (0-12); NEUTROPHILS # (AUTO) 1.3 X 10^3 (1.8-7.8); NEUTROPHILS % (AUTO) 38 % (42-75); PLATELET COUNT 187 10^3/uL (130-400); RED CELL DISTRIBUTION WIDTH 15.3 % (10.0-14.5)
[2019-08-14 11:53] LABS: BUN/CREATININE RATIO 24; CARBON DIOXIDE 27 MMOL/L (21-32); CHLORIDE 98 MMOL/L (98-107); CREATININE SERUM 0.84 MG/DL (0.60-1.30); GFR ESTIMATED > 60; GLUCOSE 103 MG/DL (70-105); POTASSIUM 4.5 MMOL/L (3.6-5.0); SODIUM 136 MMOL/L (135-145)
[2019-08-21 07:57] LABS: BASOPHILS % (AUTO) 1 % (0-10); EOSINOPHILS % (AUTO) 1 % (0-10); HEMATOCRIT 34 % (35-52); HEMOGLOBIN 10.8 G/DL (11.5-16.0); LYMPHOCYTES % (AUTO) 72 % (12-44); MEAN CORPUSCULAR HEMOGLOBIN 30 PG (25-34); MEAN CORPUSCULAR HGB CONC 32 G/DL (32-36); MEAN CORPUSCULAR VOLUME 94 FL (80-99); MEAN PLATELET VOLUME 9.1 FL (7.4-10.4); MONOCYTES % (AUTO) 17 % (0-12); NEUTROPHILS # (AUTO) 0.3 X 10^3 (1.8-7.8); NEUTROPHILS % (AUTO) 9 % (42-75); PLATELET COUNT 331 10^3/uL (130-400); RED CELL DISTRIBUTION WIDTH 16.6 % (10.0-14.5); WHITE BLOOD COUNT 3.1 10^3/uL (4.3-11.0)
[2019-08-21 07:58] LABS: LYMPHOCYTES # (AUTO) 2.3 X 10^3 (1.0-4.0); MONOCYTES # (AUTO) 0.5 X 10^3 (0.0-1.0)
[2019-08-21 08:14] LABS: CARBON DIOXIDE 26 MMOL/L (21-32); CHLORIDE 102 MMOL/L (98-107); POTASSIUM 4.1 MMOL/L (3.6-5.0); SODIUM 140 MMOL/L (135-145)
[2019-08-21 08:15] LABS: BUN/CREATININE RATIO 20; CALCIUM 9.7 MG/DL (8.5-10.1); CREATININE SERUM 0.71 MG/DL (0.60-1.30); GFR ESTIMATED > 60; GLUCOSE 96 MG/DL (70-105)
[2019-09-04 10:54] LABS: CREATININE SERUM 0.92 MG/DL (0.60-1.30); POTASSIUM 3.7 MMOL/L (3.6-5.0)
[2019-09-04 12:03] LABS: HEMATOCRIT 34 % (35-52); HEMOGLOBIN 11.2 G/DL (11.5-16.0); MEAN CORPUSCULAR HEMOGLOBIN 30 PG (25-34); MEAN CORPUSCULAR HGB CONC 33 G/DL (32-36); MEAN CORPUSCULAR VOLUME 91 FL (80-99); RED CELL DISTRIBUTION WIDTH 16.5 % (10.0-14.5); WHITE BLOOD COUNT 4.5 10^3/uL (4.3-11.0)
[2019-09-04 12:04] LABS: BASOPHILS # (AUTO) 0.1 10^3/uL (0.0-0.1); BASOPHILS % (AUTO) 0 % (0-10); EOSINOPHILS % (AUTO) 0 % (0-10); LYMPHOCYTES # (AUTO) 1.7 X 10^3 (1.0-4.0); LYMPHOCYTES % (AUTO) 39 % (12-44); MEAN PLATELET VOLUME 9.7 FL (7.4-10.4); MONOCYTES # (AUTO) 0.3 X 10^3 (0.0-1.0); MONOCYTES % (AUTO) 7 % (0-12); NEUTROPHILS # (AUTO) 2.4 X 10^3 (1.8-7.8); NEUTROPHILS % (AUTO) 53 % (42-75); PLATELET COUNT 176 10^3/uL (130-400)
[2019-09-11 11:22] LABS: HEMATOCRIT 34 % (35-52); HEMOGLOBIN 11.2 G/DL (11.5-16.0); MEAN CORPUSCULAR HEMOGLOBIN 31 PG (25-34); MEAN CORPUSCULAR VOLUME 93 FL (80-99); WHITE BLOOD COUNT 5.6 10^3/uL (4.3-11.0)
[2019-09-11 11:23] LABS: BASOPHILS % (AUTO) 1 % (0-10); EOSINOPHILS % (AUTO) 0 % (0-10); LYMPHOCYTES # (AUTO) 3.3 X 10^3 (1.0-4.0); LYMPHOCYTES % (AUTO) 58 % (12-44); MEAN CORPUSCULAR HGB CONC 31 G/DL (32-36); MEAN PLATELET VOLUME 8.8 FL (7.4-10.4); MONOCYTES # (AUTO) 1.2 X 10^3 (0.0-1.0); MONOCYTES % (AUTO) 21 % (0-12); NEUTROPHILS % (AUTO) 18 % (42-75); PLATELET COUNT 380 10^3/uL (130-400); RED CELL DISTRIBUTION WIDTH 17.2 % (10.0-14.5)
[2019-09-11 11:50] LABS: BUN/CREATININE RATIO 27; CALCIUM 10.1 MG/DL (8.5-10.1); CARBON DIOXIDE 26 MMOL/L (21-32); CHLORIDE 95 MMOL/L (98-107); CREATININE SERUM 0.78 MG/DL (0.60-1.30); GFR ESTIMATED > 60; GLUCOSE 101 MG/DL (70-105); POTASSIUM 4.2 MMOL/L (3.6-5.0); SODIUM 135 MMOL/L (135-145)
[2019-09-18 10:52] LABS: BASOPHILS % (AUTO) 1 % (0-10); EOSINOPHILS % (AUTO) 0 % (0-10); HEMATOCRIT 35 % (35-52); HEMOGLOBIN 11.4 G/DL (11.5-16.0); LYMPHOCYTES # (AUTO) 2.8 X 10^3 (1.0-4.0); LYMPHOCYTES % (AUTO) 47 % (12-44); MEAN CORPUSCULAR HEMOGLOBIN 30 PG (25-34); MEAN CORPUSCULAR HGB CONC 32 G/DL (32-36); MEAN CORPUSCULAR VOLUME 95 FL (80-99); MEAN PLATELET VOLUME 8.9 FL (7.4-10.4); MONOCYTES # (AUTO) 0.9 X 10^3 (0.0-1.0); MONOCYTES % (AUTO) 15 % (0-12); NEUTROPHILS # (AUTO) 2.2 X 10^3 (1.8-7.8); NEUTROPHILS % (AUTO) 37 % (42-75); PLATELET COUNT 347 10^3/uL (130-400); RED CELL DISTRIBUTION WIDTH 17.6 % (10.0-14.5)
[2019-09-18 11:38] LABS: BUN/CREATININE RATIO 34; CARBON DIOXIDE 26 MMOL/L (21-32); CHLORIDE 98 MMOL/L (98-107); GFR ESTIMATED > 60; GLUCOSE 106 MG/DL (70-105); POTASSIUM 4.2 MMOL/L (3.6-5.0); SODIUM 139 MMOL/L (135-145)
== END 2019-10-01 | disposition home or self-care (01) ==
LOC: LAB FS 10:37
PROVIDERS: ATTEND Internal Medicine Hematology & Oncology
DX: C56.9 Malignant neoplasm of unspecified ovary (principal)
CPT/HCPCS: 36415; 80048; 85025; 85027

== ENCOUNTER → 2019-10-16 | Outpatient (CLI) | payer MEDICARE | LOC: LAB 09:19 | PROVIDERS: ATTEND Nurse Practitioner Family | DX: R25.2 Cramp and spasm (principal) | CPT/HCPCS: 36415; 83735 ==

== ENCOUNTER → 2019-10-23 | Outpatient (CLI) | payer MEDICARE ==
[2019-10-23 09:28] LABS: ALANINE AMINOTRANSFERASE 19 U/L (0-55); ALKALINE PHOSPHATASE 55 U/L (40-136); BILIRUBIN,TOTAL 0.3 MG/DL (0.1-1.0); BUN/CREATININE RATIO 22; CALCIUM 9.8 MG/DL (8.5-10.1); CARBON DIOXIDE 27 MMOL/L (21-32); CHLORIDE 95 MMOL/L (98-107); CREATININE SERUM 0.72 MG/DL (0.60-1.30); GFR ESTIMATED > 60; GLUCOSE 90 MG/DL (70-105); MAGNESIUM 1.9 MG/DL (1.6-2.4); POTASSIUM 3.9 MMOL/L (3.6-5.0); SODIUM 134 MMOL/L (135-145); TOTAL PROTEIN 6.6 GM/DL (6.4-8.2)
[2019-10-23 14:58] LABS: CHOLESTEROL 218 MG/DL (< 200); HDL CHOLESTEROL 55 MG/DL (40-60); TRIGLYCERIDES 181 MG/DL (<150); VLDL CHOLESTEROL 36 MG/DL (5-40)
== END ==
LOC: LAB FS 08:47
PROVIDERS: ATTEND Nurse Practitioner Family
DX: I10 Essential (primary) hypertension (principal); R25.2 Cramp and spasm
CPT/HCPCS: 36415; 80053; 80061; 83735

== ENCOUNTER 2019-11-13 10:13 | Outpatient (RCR) | payer MEDICARE ==
[2019-10-02 11:22] LABS: HEMATOCRIT 30 % (35-52); HEMOGLOBIN 10.1 G/DL (11.5-16.0); MEAN CORPUSCULAR HEMOGLOBIN 31 PG (25-34); MEAN CORPUSCULAR HGB CONC 33 G/DL (32-36); MEAN CORPUSCULAR VOLUME 94 FL (80-99); PLATELET COUNT 268 10^3/uL (130-400); RED CELL DISTRIBUTION WIDTH 16.3 % (10.0-14.5); WHITE BLOOD COUNT 3.5 10^3/uL (4.3-11.0)
[2019-10-02 11:23] LABS: BASOPHILS % (AUTO) 1 % (0-10); EOSINOPHILS % (AUTO) 1 % (0-10); LYMPHOCYTES # (AUTO) 1.8 X 10^3 (1.0-4.0); LYMPHOCYTES % (AUTO) 52 % (12-44); MEAN PLATELET VOLUME 8.9 FL (7.4-10.4); MONOCYTES # (AUTO) 0.2 X 10^3 (0.0-1.0); MONOCYTES % (AUTO) 5 % (0-12); NEUTROPHILS # (AUTO) 1.4 X 10^3 (1.8-7.8); NEUTROPHILS % (AUTO) 41 % (42-75)
[2019-10-02 11:43] LABS: CALCIUM 9.9 MG/DL (8.5-10.1); CREATININE SERUM 1.04 MG/DL (0.60-1.30); POTASSIUM 4.1 MMOL/L (3.6-5.0)
[2019-10-08 10:38] LABS: HEMATOCRIT 30 % (35-52); HEMOGLOBIN 9.8 G/DL (11.5-16.0); MEAN CORPUSCULAR HEMOGLOBIN 31 PG (25-34); MEAN CORPUSCULAR HGB CONC 33 G/DL (32-36); MEAN CORPUSCULAR VOLUME 96 FL (80-99); MEAN PLATELET VOLUME 8.4 FL (7.4-10.4); PLATELET COUNT 314 10^3/uL (130-400); RED CELL DISTRIBUTION WIDTH 17.2 % (10.0-14.5); WHITE BLOOD COUNT 4.2 10^3/uL (4.3-11.0)
[2019-10-08 10:39] LABS: BASOPHILS % (AUTO) 0 % (0-10); EOSINOPHILS % (AUTO) 0 % (0-10); LYMPHOCYTES # (AUTO) 1.6 X 10^3 (1.0-4.0); LYMPHOCYTES % (AUTO) 38 % (12-44); MONOCYTES # (AUTO) 0.8 X 10^3 (0.0-1.0); MONOCYTES % (AUTO) 18 % (0-12); NEUTROPHILS # (AUTO) 1.8 X 10^3 (1.8-7.8); NEUTROPHILS % (AUTO) 44 % (42-75)
[2019-10-08 10:57] LABS: BUN/CREATININE RATIO 23; CALCIUM 10.2 MG/DL (8.5-10.1); CARBON DIOXIDE 25 MMOL/L (21-32); CHLORIDE 101 MMOL/L (98-107); CREATININE SERUM 0.86 MG/DL (0.60-1.30); GFR ESTIMATED > 60; GLUCOSE 108 MG/DL (70-105); POTASSIUM 4.2 MMOL/L (3.6-5.0); SODIUM 138 MMOL/L (135-145)
[2019-10-23 09:09] LABS: WHITE BLOOD COUNT 3.1 10^3/uL (4.3-11.0)
[2019-10-23 09:10] LABS: BASOPHILS % (AUTO) 0 % (0-10); EOSINOPHILS # (AUTO) 0.1 10^3/uL (0.0-0.3); EOSINOPHILS % (AUTO) 2 % (0-10); HEMATOCRIT 31 % (35-52); HEMOGLOBIN 9.9 G/DL (11.5-16.0); LYMPHOCYTES # (AUTO) 1.7 X 10^3 (1.0-4.0); LYMPHOCYTES % (AUTO) 55 % (12-44); MEAN CORPUSCULAR HEMOGLOBIN 32 PG (25-34); MEAN CORPUSCULAR HGB CONC 32 G/DL (32-36); MEAN CORPUSCULAR VOLUME 98 FL (80-99); MEAN PLATELET VOLUME 9.5 FL (7.4-10.4); MONOCYTES # (AUTO) 0.2 X 10^3 (0.0-1.0); MONOCYTES % (AUTO) 5 % (0-12); NEUTROPHILS # (AUTO) 1.2 X 10^3 (1.8-7.8); NEUTROPHILS % (AUTO) 38 % (42-75); PLATELET COUNT 159 10^3/uL (130-400); RED CELL DISTRIBUTION WIDTH 16.4 % (10.0-14.5)
[2019-10-23 09:27] LABS: CHLORIDE 96 MMOL/L (98-107); SODIUM 134 MMOL/L (135-145)
[2019-10-23 09:28] LABS: BUN/CREATININE RATIO 23; CALCIUM 9.7 MG/DL (8.5-10.1); CARBON DIOXIDE 28 MMOL/L (21-32); CREATININE SERUM 0.73 MG/DL (0.60-1.30); GFR ESTIMATED > 60; GLUCOSE 92 MG/DL (70-105)
[2019-10-30 11:01] LABS: SODIUM 137 MMOL/L (135-145)
[2019-10-30 11:02] LABS: BUN/CREATININE RATIO 32; CALCIUM 9.8 MG/DL (8.5-10.1); CARBON DIOXIDE 25 MMOL/L (21-32); CHLORIDE 100 MMOL/L (98-107); CREATININE SERUM 0.71 MG/DL (0.60-1.30); GFR ESTIMATED > 60; GLUCOSE 99 MG/DL (70-105); POTASSIUM 4.2 MMOL/L (3.6-5.0)
[2019-10-30 11:03] LABS: BASOPHILS % (AUTO) 0 % (0-10); EOSINOPHILS % (AUTO) 2 % (0-10); HEMATOCRIT 32 % (35-52); HEMOGLOBIN 10.3 G/DL (11.5-16.0); LYMPHOCYTES % (AUTO) 61 % (12-44); MEAN CORPUSCULAR HEMOGLOBIN 32 PG (25-34); MEAN CORPUSCULAR HGB CONC 33 G/DL (32-36); MEAN CORPUSCULAR VOLUME 97 FL (80-99); MEAN PLATELET VOLUME 9.1 FL (7.4-10.4); NEUTROPHILS % (AUTO) 19 % (42-75); PLATELET COUNT 343 10^3/uL (130-400); RED CELL DISTRIBUTION WIDTH 16.4 % (10.0-14.5); WHITE BLOOD COUNT 3.2 10^3/uL (4.3-11.0)
[2019-10-30 11:04] LABS: EOSINOPHILS # (AUTO) 0.1 10^3/uL (0.0-0.3); MONOCYTES # (AUTO) 0.6 X 10^3 (0.0-1.0); MONOCYTES % (AUTO) 18 % (0-12); NEUTROPHILS # (AUTO) 0.6 X 10^3 (1.8-7.8)
[2019-11-06 10:59] LABS: HEMATOCRIT 30 % (35-52); HEMOGLOBIN 9.8 G/DL (11.5-16.0); MEAN CORPUSCULAR HEMOGLOBIN 32 PG (25-34); MEAN CORPUSCULAR HGB CONC 33 G/DL (32-36); MEAN CORPUSCULAR VOLUME 98 FL (80-99); WHITE BLOOD COUNT 7.1 10^3/uL (4.3-11.0)
[2019-11-06 11:00] LABS: BASOPHILS % (AUTO) 0 % (0-10); EOSINOPHILS % (AUTO) 1 % (0-10); LYMPHOCYTES % (AUTO) 43 % (12-44); MEAN PLATELET VOLUME 8.4 FL (7.4-10.4); MONOCYTES # (AUTO) 0.9 X 10^3 (0.0-1.0); MONOCYTES % (AUTO) 13 % (0-12); NEUTROPHILS # (AUTO) 2.9 X 10^3 (1.8-7.8); NEUTROPHILS % (AUTO) 42 % (42-75); PLATELET COUNT 381 10^3/uL (130-400)
[2019-11-06 11:18] LABS: BUN/CREATININE RATIO 28; CALCIUM 9.4 MG/DL (8.5-10.1); CARBON DIOXIDE 26 MMOL/L (21-32); CHLORIDE 98 MMOL/L (98-107); CREATININE SERUM 0.81 MG/DL (0.60-1.30); GFR ESTIMATED > 60; GLUCOSE 93 MG/DL (70-105); POTASSIUM 4.1 MMOL/L (3.6-5.0); SODIUM 136 MMOL/L (135-145)
[2019-11-13 10:26] LABS: BASOPHILS % (AUTO) 1 % (0-10); EOSINOPHILS % (AUTO) 1 % (0-10); HEMATOCRIT 33 % (35-52); HEMOGLOBIN 10.6 G/DL (11.5-16.0); LYMPHOCYTES % (AUTO) 36 % (12-44); MEAN CORPUSCULAR HEMOGLOBIN 32 PG (25-34); MEAN CORPUSCULAR HGB CONC 32 G/DL (32-36); MEAN CORPUSCULAR VOLUME 98 FL (80-99); MEAN PLATELET VOLUME 8.6 FL (7.4-10.4); MONOCYTES # (AUTO) 0.8 X 10^3 (0.0-1.0); MONOCYTES % (AUTO) 10 % (0-12); NEUTROPHILS # (AUTO) 4.6 X 10^3 (1.8-7.8); NEUTROPHILS % (AUTO) 54 % (42-75); PLATELET COUNT 263 10^3/uL (130-400); RED CELL DISTRIBUTION WIDTH 16.3 % (10.0-14.5); WHITE BLOOD COUNT 8.5 10^3/uL (4.3-11.0)
[2019-11-13 10:45] LABS: BUN/CREATININE RATIO 22; CALCIUM 9.9 MG/DL (8.5-10.1); CARBON DIOXIDE 25 MMOL/L (21-32); CHLORIDE 97 MMOL/L (98-107); CREATININE SERUM 0.89 MG/DL (0.60-1.30); GFR ESTIMATED > 60; GLUCOSE 88 MG/DL (70-105); POTASSIUM 4.1 MMOL/L (3.6-5.0); SODIUM 136 MMOL/L (135-145)
== END 2019-12-31 | disposition home or self-care (01) ==
LOC: LAB FS 10:13
PROVIDERS: ATTEND Internal Medicine Hematology & Oncology
DX: C56.9 Malignant neoplasm of unspecified ovary (principal)
CPT/HCPCS: 36415; 80048; 85025

== ENCOUNTER → 2019-11-14 | Outpatient (CLI) | payer MEDICARE ==
[~2019-11-14] MED LIST changes: +BARIUM SUSPENSION 2.1% (VANILLA SILQ) 450 ML PO ONE; +HOLD METFORMIN - RECEIVED CONTRAST 20 ML VIAL IV SCH; +IOHEXOL 350 MG/ML 100 ML (OMNIPAQUE 350) VIAL IV ONE; +NS 100 ML (IVPB) BAG IV ONE
[2019-11-14] MEDS: CATHETER FLUSH 10 ML SYR IV PRN ×2 (11:32→11:33)
--- NOTE | 2019-11-14 12:21 | Diagnostic Imaging Report ---
PROCEDURE: CT chest, abdomen, and pelvis with contrast. TECHNIQUE: Multiple contiguous axial images were obtained through the chest, abdomen, and pelvis after the administration of intravenous contrast. Auto Exposure Controls were utilized during the CT exam to meet ALARA standards for radiation dose reduction. INDICATION: Ovarian carcinoma, follow-up. COMPARISON: Correlation is made with prior CT from 08/25/2019. CT CHEST: FINDINGS: Central line has tip within the SVC. No axillary lymphadenopathy is detected. No mediastinal or hilar lymphadenopathy is detected. No pericardial or pleural fluid is identified. Parenchymal evaluation again demonstrates a stable tiny nodule in the right upper lobe. Previously noted ground-glass density in the left lower lobe is not well seen on today's study. No new pulmonary abnormality is identified. IMPRESSION: Stable CT of the chest. No thoracic lymphadenopathy is seen. Micronodule in the right upper lobe is stable. Ground-glass density in the left lower lobe previously described is not well visualized on today's study. No new pulmonary mass is detected. CT ABDOMEN AND PELVIS: FINDINGS: No discrete liver mass is detected. Gallbladder is unremarkable. No biliary ductal dilatation is seen. The pancreas and spleen are unremarkable. No adrenal mass is detected. Nonobstructing calculus in the left kidney is stable. There is no hydronephrosis. Right kidney is unremarkable. The aorta is normal in caliber. No central retroperitoneal or mesenteric lymphadenopathy is seen. Minimal hazy density to the omentum in left anterior abdomen is again noted; however, this continues to show improvement and is less prominent than prior examination from August. No definite nodularity or evidence of peritoneal implants is seen. There is no free fluid in the abdomen or pelvis. The bowel loops are nonobstructed. There is extensive diverticulosis of the sigmoid but no evidence of acute diverticulitis. No pelvic lymphadenopathy is seen. Small fat-containing umbilical hernia is seen. The bladder is unremarkable. IMPRESSION: 1. Continued improved appearance to the abdomen and pelvis when compared with the study from 08/25/2019. Previously noted omental caking continues to show improvement and is much less prominent on today's study. No definite abdominal or pelvic lymphadenopathy or evidence of ascites is seen. 2. Uncomplicated diverticulosis. Dictated by: Dictated on workstation # [id number]
== END ==
LOC: RAD 11:18
PROVIDERS: ATTEND Internal Medicine Hematology & Oncology
DX: C56.2 Malignant neoplasm of left ovary (principal); C78.6 Secondary malignant neoplasm of retroperitoneum and peritoneum; R91.1 Solitary pulmonary nodule; J98.4 Other disorders of lung; K57.30 Diverticulosis of large intestine without perforation or abscess without bleeding; K66.8 Other specified disorders of peritoneum; Z95.828 Presence of other vascular implants and grafts
CPT/HCPCS: 71260; 74177

== ENCOUNTER 2019-11-17 08:53 | Outpatient (RCR) | payer MEDICARE ==
[2019-09-25 10:04] LABS: BASOPHILS % (AUTO) 0 % (0-10); EOSINOPHILS # (AUTO) 0.1 10^3/uL (0.0-0.3); EOSINOPHILS % (AUTO) 1 % (0-10); HEMATOCRIT 32 % (35-52); HEMOGLOBIN 10.7 G/DL (11.5-16.0); LYMPHOCYTES # (AUTO) 2.5 X 10^3 (1.0-4.0); LYMPHOCYTES % (AUTO) 46 % (12-44); MEAN CORPUSCULAR HEMOGLOBIN 31 PG (25-34); MEAN CORPUSCULAR HGB CONC 33 G/DL (32-36); MEAN CORPUSCULAR VOLUME 94 FL (80-99); MEAN PLATELET VOLUME 8.7 FL (7.4-10.4); MONOCYTES # (AUTO) 0.7 X 10^3 (0.0-1.0); MONOCYTES % (AUTO) 12 % (0-12); NEUTROPHILS # (AUTO) 2.2 X 10^3 (1.8-7.8); NEUTROPHILS % (AUTO) 40 % (42-75); PLATELET COUNT 245 10^3/uL (130-400); RED CELL DISTRIBUTION WIDTH 18.2 % (10.0-14.5); WHITE BLOOD COUNT 5.5 10^3/uL (4.3-11.0)
[2019-09-25 10:26] LABS: ALANINE AMINOTRANSFERASE 14 U/L (0-55); ALKALINE PHOSPHATASE 64 U/L (40-136); BILIRUBIN,TOTAL 0.2 MG/DL (0.1-1.0); BUN/CREATININE RATIO 20; CALCIUM 9.5 MG/DL (8.5-10.1); CARBON DIOXIDE 26 MMOL/L (21-32); CHLORIDE 104 MMOL/L (98-107); CREATININE SERUM 0.85 MG/DL (0.60-1.30); GFR ESTIMATED > 60; GLUCOSE 91 MG/DL (70-105); POTASSIUM 4.5 MMOL/L (3.6-5.0); SODIUM 139 MMOL/L (135-145); TOTAL PROTEIN 6.5 GM/DL (6.4-8.2)
[2019-10-16 09:36] LABS: BASOPHILS % (AUTO) 0 % (0-10); EOSINOPHILS % (AUTO) 0 % (0-10); HEMATOCRIT 32 % (35-52); HEMOGLOBIN 10.4 G/DL (11.5-16.0); LYMPHOCYTES # (AUTO) 3.2 X 10^3 (1.0-4.0); LYMPHOCYTES % (AUTO) 46 % (12-44); MEAN CORPUSCULAR HEMOGLOBIN 31 PG (25-34); MEAN CORPUSCULAR HGB CONC 33 G/DL (32-36); MEAN CORPUSCULAR VOLUME 96 FL (80-99); MEAN PLATELET VOLUME 8.2 FL (7.4-10.4); MONOCYTES # (AUTO) 1.1 X 10^3 (0.0-1.0); MONOCYTES % (AUTO) 16 % (0-12); NEUTROPHILS # (AUTO) 2.6 X 10^3 (1.8-7.8); NEUTROPHILS % (AUTO) 38 % (42-75); PLATELET COUNT 270 10^3/uL (130-400); RED CELL DISTRIBUTION WIDTH 17.7 % (10.0-14.5)
[2019-10-16 09:54] LABS: ALANINE AMINOTRANSFERASE 18 U/L (0-55); ALBUMIN 4.2 GM/DL (3.2-4.5); ALKALINE PHOSPHATASE 54 U/L (40-136); BILIRUBIN,TOTAL 0.3 MG/DL (0.1-1.0); BUN/CREATININE RATIO 32; CALCIUM 9.4 MG/DL (8.5-10.1); CARBON DIOXIDE 24 MMOL/L (21-32); CHLORIDE 102 MMOL/L (98-107); CREATININE SERUM 0.77 MG/DL (0.60-1.30); GFR ESTIMATED > 60; GLUCOSE 81 MG/DL (70-105); POTASSIUM 4.4 MMOL/L (3.6-5.0); SODIUM 137 MMOL/L (135-145); TOTAL PROTEIN 6.5 GM/DL (6.4-8.2)
[~2019-11-17 08:53] MED LIST changes: -BARIUM SUSPENSION 2.1% (VANILLA SILQ) 450 ML PO ONE; +FAMOTIDINE 20MG/2ML IV (CANCER CTR) IV SCH; +FOSAPREPITANT DIMEGLUMINE 150 MG in NS (IVPB) CANCER CENTER ONLY 150 ML IV SCH; -HOLD METFORMIN - RECEIVED CONTRAST 20 ML VIAL IV SCH; -IOHEXOL 350 MG/ML 100 ML (OMNIPAQUE 350) VIAL IV ONE; -NS 100 ML (IVPB) BAG IV ONE; +NS IV 1000 ML (CANCER CTR) IV SCH; +PALONOSETRON HCL 0.25 MG, DEXAMETHASONE INJECTION 10 MG in NS (IVPB) CANCER CENTER 50 ML IV SCH; +diphenhydrAMINE 25 MG TAB (BENADRYL) CANCER CENTER PO SCH; +diphenhydrAMINE 50 MG/ML INJ (CANCER CENTER) ONE; +methylPREDNISolone 125 MG/2 ML (SOLU-MEDROL) CANCER CTR ONE
== END 2019-12-24 | disposition home or self-care (01) ==
LOC: ONC 08:53
PROVIDERS: ATTEND Internal Medicine Hematology & Oncology
DX: Z51.11 Encounter for antineoplastic chemotherapy (principal); C56.2 Malignant neoplasm of left ovary; C79.89 Secondary malignant neoplasm of other specified sites; K57.90 Diverticulosis of intestine, part unspecified, without perforation or abscess without bleeding; I10 Essential (primary) hypertension; R73.9 Hyperglycemia, unspecified
CPT/HCPCS: 36591; 80053; 85025; 86304; 96367; 96375; 96411; 96413; 96415; 96417

== ENCOUNTER 2020-02-05 09:19 | Outpatient (RCR) | payer MEDICARE ==
[~2020-02-05 09:19] MED LIST changes: +ACHD5005 PO; -FAMOTIDINE 20MG/2ML IV (CANCER CTR) IV SCH; -FOSAPREPITANT DIMEGLUMINE 150 MG in NS (IVPB) CANCER CENTER ONLY 150 ML IV SCH; -HYDR-3812 PO; -NS IV 1000 ML (CANCER CTR) IV SCH; -PALONOSETRON HCL 0.25 MG, DEXAMETHASONE INJECTION 10 MG in NS (IVPB) CANCER CENTER 50 ML IV SCH; -diphenhydrAMINE 25 MG TAB (BENADRYL) CANCER CENTER PO SCH; -diphenhydrAMINE 50 MG/ML INJ (CANCER CENTER) ONE; -methylPREDNISolone 125 MG/2 ML (SOLU-MEDROL) CANCER CTR ONE
[2020-02-05 09:48] LABS: BASOPHILS % (AUTO) 0 % (0-10); EOSINOPHILS # (AUTO) 0.1 10^3/uL (0.0-0.3); EOSINOPHILS % (AUTO) 1 % (0-10); HEMATOCRIT 35 % (35-52); HEMOGLOBIN 11.5 G/DL (11.5-16.0); LYMPHOCYTES # (AUTO) 3.1 X 10^3 (1.0-4.0); LYMPHOCYTES % (AUTO) 45 % (12-44); MEAN CORPUSCULAR HEMOGLOBIN 31 PG (25-34); MEAN CORPUSCULAR HGB CONC 33 G/DL (32-36); MEAN CORPUSCULAR VOLUME 95 FL (80-99); MEAN PLATELET VOLUME 9.6 FL (7.4-10.4); MONOCYTES # (AUTO) 0.7 X 10^3 (0.0-1.0); MONOCYTES % (AUTO) 10 % (0-12); NEUTROPHILS # (AUTO) 3.1 X 10^3 (1.8-7.8); NEUTROPHILS % (AUTO) 44 % (42-75); PLATELET COUNT 266 10^3/uL (130-400); RED CELL DISTRIBUTION WIDTH 14.1 % (10.0-14.5)
[2020-02-05 10:09] LABS: ALANINE AMINOTRANSFERASE 16 U/L (0-55); ALBUMIN 4.4 GM/DL (3.2-4.5); ALKALINE PHOSPHATASE 75 U/L (40-136); BILIRUBIN,TOTAL 0.3 MG/DL (0.1-1.0); BUN/CREATININE RATIO 27; CALCIUM 9.9 MG/DL (8.5-10.1); CARBON DIOXIDE 26 MMOL/L (21-32); CHLORIDE 105 MMOL/L (98-107); CREATININE SERUM 0.84 MG/DL (0.60-1.30); GFR ESTIMATED > 60; GLUCOSE 93 MG/DL (70-105); POTASSIUM 4.1 MMOL/L (3.6-5.0); SODIUM 141 MMOL/L (135-145); TOTAL PROTEIN 6.8 GM/DL (6.4-8.2)
== END 2020-03-28 | disposition home or self-care (01) ==
LOC: ONC 09:19
PROVIDERS: ATTEND Internal Medicine Hematology & Oncology
DX: C56.2 Malignant neoplasm of left ovary (principal); C79.89 Secondary malignant neoplasm of other specified sites; K57.90 Diverticulosis of intestine, part unspecified, without perforation or abscess without bleeding; I10 Essential (primary) hypertension; R73.9 Hyperglycemia, unspecified; Z45.2 Encounter for adjustment and management of vascular access device
CPT/HCPCS: 36591; 80053; 85025; 86304; 96523

== ENCOUNTER → 2020-04-21 | Outpatient (CLI) | payer MEDICARE ==
[2020-04-21 14:59] LABS: TRIGLYCERIDES 131 MG/DL (<150); VLDL CHOLESTEROL 26 MG/DL (5-40)
[2020-04-21 15:04] LABS: CHOLESTEROL 179 MG/DL (< 200)
[2020-04-21 15:05] LABS: HDL CHOLESTEROL 58 MG/DL (40-60)
== END ==
LOC: LAB FS 08:14
PROVIDERS: ATTEND Family Medicine
DX: E78.5 Hyperlipidemia, unspecified (principal)
CPT/HCPCS: 36415; 80061

== ENCOUNTER → 2020-04-21 | Outpatient (CLI) | payer MEDICARE ==
[2020-04-21 09:56] LABS: HEMATOCRIT 34 % (35-52); HEMOGLOBIN 11.4 G/DL (11.5-16.0); MEAN CORPUSCULAR HEMOGLOBIN 30 PG (25-34); MEAN CORPUSCULAR HGB CONC 33 G/DL (32-36); MEAN CORPUSCULAR VOLUME 91 FL (80-99); MEAN PLATELET VOLUME 9.9 FL (7.4-10.4); PLATELET COUNT 261 10^3/uL (130-400); RED CELL DISTRIBUTION WIDTH 14.6 % (10.0-14.5); WHITE BLOOD COUNT 5.9 10^3/uL (4.3-11.0)
[2020-04-21 09:57] LABS: BASOPHILS % (AUTO) 1 % (0-10); EOSINOPHILS # (AUTO) 0.1 10^3/uL (0.0-0.3); EOSINOPHILS % (AUTO) 1 % (0-10); LYMPHOCYTES # (AUTO) 2.7 X 10^3 (1.0-4.0); LYMPHOCYTES % (AUTO) 42 % (12-44); MONOCYTES # (AUTO) 0.5 X 10^3 (0.0-1.0); MONOCYTES % (AUTO) 9 % (0-12); NEUTROPHILS # (AUTO) 2.6 X 10^3 (1.8-7.8); NEUTROPHILS % (AUTO) 44 % (42-75)
[2020-04-21 10:24] LABS: CREATININE SERUM 0.96 MG/DL (0.60-1.30); POTASSIUM 4.2 MMOL/L (3.6-5.0)
[2020-04-21 10:25] LABS: BILIRUBIN,TOTAL 0.3 MG/DL (0.1-1.0); CALCIUM 9.6 MG/DL (8.5-10.1); TOTAL PROTEIN 6.5 GM/DL (6.4-8.2)
== END ==
LOC: LAB FS 08:20
PROVIDERS: ATTEND Internal Medicine Hematology & Oncology
DX: C56.2 Malignant neoplasm of left ovary (principal); C79.89 Secondary malignant neoplasm of other specified sites
CPT/HCPCS: 36415; 80053; 85025; 86304

== ENCOUNTER → 2020-05-17 | Outpatient (CLI) | payer MEDICARE ==
[~2020-05-17] MED LIST changes: +CATHETER FLUSH 10 ML SYR IV PRN; +HOLD METFORMIN - RECEIVED CONTRAST 20 ML VIAL IV SCH; +IOHEXOL 350 MG/ML 100 ML (OMNIPAQUE 350) VIAL IV ONE; +NS 100 ML (IVPB) BAG IV ONE
--- NOTE | 2020-05-17 15:13 | Diagnostic Imaging Report ---
PROCEDURE: CT chest, abdomen, and pelvis with contrast. TECHNIQUE: Multiple contiguous axial images were obtained through the chest, abdomen, and pelvis after the administration of intravenous contrast. Auto Exposure Controls were utilized during the CT exam to meet ALARA standards for radiation dose reduction. INDICATION: Ovarian carcinoma, follow-up. COMPARISON: Correlation is made with prior CT from 11/14/2019. FINDINGS: CT chest: No axillary, hilar or mediastinal lymphadenopathy is detected. No pericardial or pleural fluid is identified. Tiny nodule in right upper lobe, image 16, series 2 is stable. Groundglass density in left lower lobe appears similar to a study dating back to August 2019, measuring approximately 7-8 mm. This is best seen on image 43, series 2. No new pulmonary nodules are identified. IMPRESSION: Stable CT chest when compared to exam dating back to 2019. No thoracic lymphadenopathy is detected. Pulmonary densities are stable. CT abdomen and pelvis: Hyperdense density dome of the right lower liver measures 7 mm. This has not been seen on last two CTs but was present on CT from June 2019. This is similar in size approximately 7 mm. No other liver lesions are identified. Gallbladder is unremarkable. No biliary ductal dilatation is seen. The pancreas and spleen are unremarkable. No adrenal mass is detected. Kidneys are unremarkable. Aorta is non-aneurysmal. No central retroperitoneal or mesenteric lymphadenopathy is identified. Minimal density in the left upper quadrant anteriorly is similar to prior exam. No significant nodularity or omental caking is identified. Bowel loops are normal caliber. There is moderate stool in the colon. There is diverticulosis of the sigmoid but no evidence of acute diverticulitis. There is a small amount of free fluid in the pelvis. Bladder is unremarkable. No definite pelvic lymphadenopathy is seen. IMPRESSION: Stable CT abdomen and pelvis. There is a small hypodense lesion at dome of the liver, similar in size since study dating back to June 2019. No definite abdominal or pelvic lymphadenopathy is identified. No significant omental caking or nodularity is seen. There is trace free fluid in the pelvis. Dictated by: Dictated on workstation # [id number]
== END ==
LOC: RAD 13:09
PROVIDERS: ATTEND Internal Medicine Hematology & Oncology
DX: C56.2 Malignant neoplasm of left ovary (principal); C78.6 Secondary malignant neoplasm of retroperitoneum and peritoneum; K76.89 Other specified diseases of liver
CPT/HCPCS: 71260; 74177

== ENCOUNTER 2020-05-18 09:12 | Outpatient (RCR) | payer MEDICARE ==
[~2020-05-18 09:12] MED LIST changes: -CALC600T12 PO; +CALC600T14 PO; -CATHETER FLUSH 10 ML SYR IV PRN; -HOLD METFORMIN - RECEIVED CONTRAST 20 ML VIAL IV SCH; -IOHEXOL 350 MG/ML 100 ML (OMNIPAQUE 350) VIAL IV ONE; -NS 100 ML (IVPB) BAG IV ONE
== END 2020-06-11 09:13 | disposition home or self-care (01) ==
LOC: ONC 09:12
PROVIDERS: ATTEND Internal Medicine Hematology & Oncology
DX: C56.2 Malignant neoplasm of left ovary (principal); C79.89 Secondary malignant neoplasm of other specified sites; K57.90 Diverticulosis of intestine, part unspecified, without perforation or abscess without bleeding; I10 Essential (primary) hypertension; R73.9 Hyperglycemia, unspecified
CPT/HCPCS: 86304; G0463; 36591; 99213

== ENCOUNTER 2020-07-27 10:45 | Outpatient (RCR) | payer MEDICARE ==
[2020-06-14 15:32] LABS: BASOPHILS % (AUTO) 0 % (0-10); EOSINOPHILS # (AUTO) 0.1 10^3/uL (0.0-0.3); EOSINOPHILS % (AUTO) 1 % (0-10); HEMATOCRIT 34 % (35-52); HEMOGLOBIN 11.4 G/DL (11.5-16.0); LYMPHOCYTES # (AUTO) 1.8 X 10^3 (1.0-4.0); LYMPHOCYTES % (AUTO) 21 % (12-44); MEAN CORPUSCULAR HEMOGLOBIN 31 PG (25-34); MEAN CORPUSCULAR HGB CONC 33 G/DL (32-36); MEAN CORPUSCULAR VOLUME 92 FL (80-99); MEAN PLATELET VOLUME 9.4 FL (7.4-10.4); MONOCYTES # (AUTO) 0.6 X 10^3 (0.0-1.0); MONOCYTES % (AUTO) 7 % (0-12); NEUTROPHILS # (AUTO) 5.8 X 10^3 (1.8-7.8); NEUTROPHILS % (AUTO) 71 % (42-75); PLATELET COUNT 282 10^3/uL (130-400); WHITE BLOOD COUNT 8.2 10^3/uL (4.3-11.0)
[2020-06-14 16:02] LABS: ALBUMIN 4.1 GM/DL (3.2-4.5); BILIRUBIN,TOTAL 0.2 MG/DL (0.1-1.0); CALCIUM 9.5 MG/DL (8.5-10.1); CREATININE SERUM 1.29 MG/DL (0.60-1.30); POTASSIUM 3.8 MMOL/L (3.6-5.0); TOTAL PROTEIN 6.7 GM/DL (6.4-8.2)
[~2020-07-27 10:45] MED LIST changes: -CALC600T14 PO; +CLC600T PO
[2020-07-27 11:12] LABS: BASOPHILS % (AUTO) 0 % (0-10); EOSINOPHILS # (AUTO) 0.1 10^3/uL (0.0-0.3); EOSINOPHILS % (AUTO) 1 % (0-10); HEMATOCRIT 35 % (35-52); HEMOGLOBIN 11.5 G/DL (11.5-16.0); LYMPHOCYTES # (AUTO) 2.5 X 10^3 (1.0-4.0); LYMPHOCYTES % (AUTO) 31 % (12-44); MEAN CORPUSCULAR HEMOGLOBIN 30 PG (25-34); MEAN CORPUSCULAR HGB CONC 33 G/DL (32-36); MEAN CORPUSCULAR VOLUME 91 FL (80-99); MEAN PLATELET VOLUME 9.2 FL (7.4-10.4); MONOCYTES # (AUTO) 0.8 X 10^3 (0.0-1.0); MONOCYTES % (AUTO) 9 % (0-12); NEUTROPHILS # (AUTO) 4.8 X 10^3 (1.8-7.8); NEUTROPHILS % (AUTO) 59 % (42-75); PLATELET COUNT 323 10^3/uL (130-400); WHITE BLOOD COUNT 8.1 10^3/uL (4.3-11.0)
[2020-07-27 11:35] LABS: ALANINE AMINOTRANSFERASE 17 U/L (0-55); ALBUMIN 4.1 GM/DL (3.2-4.5); ALKALINE PHOSPHATASE 85 U/L (40-136); BILIRUBIN,TOTAL 0.3 MG/DL (0.1-1.0); BUN/CREATININE RATIO 27; CALCIUM 9.4 MG/DL (8.5-10.1); CARBON DIOXIDE 27 MMOL/L (21-32); CHLORIDE 103 MMOL/L (98-107); CREATININE SERUM 0.83 MG/DL (0.60-1.30); GFR ESTIMATED > 60; GLUCOSE 88 MG/DL (70-105); POTASSIUM 4.3 MMOL/L (3.6-5.0); SODIUM 138 MMOL/L (135-145)
== END 2020-09-12 | disposition home or self-care (01) ==
LOC: ONC 10:45
PROVIDERS: ATTEND Internal Medicine Hematology & Oncology
DX: Z51.11 Encounter for antineoplastic chemotherapy (principal); C56.2 Malignant neoplasm of left ovary; C79.89 Secondary malignant neoplasm of other specified sites; K57.90 Diverticulosis of intestine, part unspecified, without perforation or abscess without bleeding; I10 Essential (primary) hypertension; E78.2 Mixed hyperlipidemia; R73.9 Hyperglycemia, unspecified; Z92.21 Personal history of antineoplastic chemotherapy; Z85.820 Personal history of malignant melanoma of skin
CPT/HCPCS: 80053; 85025; 86304; G0463; 36591; 99213

== ENCOUNTER → 2020-08-16 | Outpatient (CLI) | payer MEDICARE | LOC: LAB FS 10:33 | PROVIDERS: ATTEND Obstetrics & Gynecology Gynecologic Oncology | DX: Z11.59 Encounter for screening for other viral diseases (principal) | CPT/HCPCS: 87635 ==

== ENCOUNTER → 2020-09-21 | Outpatient (CLI) | payer MEDICARE | LOC: WOUNDCARE 11:10 | PROVIDERS: ATTEND Surgery | DX: I96 Gangrene, not elsewhere classified (principal); L98.492 Non-pressure chronic ulcer of skin of other sites with fat layer exposed; T81.31XA Disruption of external operation (surgical) wound, not elsewhere classified, initial encounter; C56.9 Malignant neoplasm of unspecified ovary | CPT/HCPCS: 11042 ==

== ENCOUNTER 2020-09-28 14:07 | Outpatient (RCR) | payer MEDICARE ==
[2020-09-21 09:54] LABS: BASOPHILS # (AUTO) 0.1 10^3/uL (0.0-0.1); BASOPHILS % (AUTO) 1 % (0-10); EOSINOPHILS # (AUTO) 0.1 10^3/uL (0.0-0.3); EOSINOPHILS % (AUTO) 1 % (0-10); HEMATOCRIT 30 % (35-52); HEMOGLOBIN 9.6 g/dL (11.5-16.0); LYMPHOCYTES # (AUTO) 2.5 10^3/uL (1.0-4.0); LYMPHOCYTES % (AUTO) 34 % (12-44); MEAN CORPUSCULAR HEMOGLOBIN 29 pg (25-34); MEAN CORPUSCULAR HGB CONC 32 g/dL (32-36); MEAN CORPUSCULAR VOLUME 91 fL (80-99); MEAN PLATELET VOLUME 8.9 fL (9.0-12.2); MONOCYTES # (AUTO) 0.7 10^3/uL (0.0-1.0); MONOCYTES % (AUTO) 10 % (0-12); NEUTROPHILS # (AUTO) 4.1 10^3/uL (1.8-7.8); NEUTROPHILS % (AUTO) 55 % (42-75); PLATELET COUNT 409 10^3/uL (130-400); WHITE BLOOD COUNT 7.5 10^3/uL (4.3-11.0)
[2020-09-21 10:12] LABS: ALBUMIN 4.1 GM/DL (3.2-4.5); BILIRUBIN,TOTAL 0.3 MG/DL (0.1-1.0); CALCIUM 9.9 MG/DL (8.5-10.1); CREATININE SERUM 1.05 MG/DL (0.60-1.30); POTASSIUM 4.6 MMOL/L (3.6-5.0); TOTAL PROTEIN 7.1 GM/DL (6.4-8.2)
== END 2020-11-25 13:44 | disposition home or self-care (01) ==
LOC: ONC 14:07
PROVIDERS: ATTEND Internal Medicine Hematology & Oncology
DX: Z51.11 Encounter for antineoplastic chemotherapy (principal); C56.2 Malignant neoplasm of left ovary; C78.6 Secondary malignant neoplasm of retroperitoneum and peritoneum; K57.90 Diverticulosis of intestine, part unspecified, without perforation or abscess without bleeding; I10 Essential (primary) hypertension; E78.2 Mixed hyperlipidemia; R73.9 Hyperglycemia, unspecified; Z92.21 Personal history of antineoplastic chemotherapy; Z85.820 Personal history of malignant melanoma of skin; Z80.9 Family history of malignant neoplasm, unspecified
CPT/HCPCS: 80053; 85025; 86304; G0463; 36591

== ENCOUNTER → 2020-09-28 | Outpatient (CLI) | payer MEDICARE | LOC: WOUNDCARE 12:36 | PROVIDERS: ATTEND Surgery | DX: C56.9 Malignant neoplasm of unspecified ovary (principal); T81.31XA Disruption of external operation (surgical) wound, not elsewhere classified, initial encounter; I96 Gangrene, not elsewhere classified; L98.492 Non-pressure chronic ulcer of skin of other sites with fat layer exposed | CPT/HCPCS: 11042; A6197; G0463 ==

== ENCOUNTER → 2020-10-05 | Outpatient (CLI) | payer MEDICARE | LOC: WOUNDCARE 12:10 | PROVIDERS: ATTEND Surgery | DX: L98.492 Non-pressure chronic ulcer of skin of other sites with fat layer exposed (principal); T81.31XA Disruption of external operation (surgical) wound, not elsewhere classified, initial encounter; C56.9 Malignant neoplasm of unspecified ovary | CPT/HCPCS: 99212 ==

== ENCOUNTER → 2020-10-26 | Outpatient (CLI) | payer MEDICARE ==
[2020-10-26 12:22] LABS: ALBUMIN 4.5 GM/DL (3.2-4.5); BILIRUBIN,TOTAL 0.2 MG/DL (0.1-1.0); CREATININE SERUM 1.22 MG/DL (0.60-1.30); POTASSIUM 4.4 MMOL/L (3.6-5.0); TOTAL PROTEIN 7.5 GM/DL (6.4-8.2)
== END ==
LOC: LAB FS 11:22
PROVIDERS: ATTEND Family Medicine
DX: E78.2 Mixed hyperlipidemia (principal)
CPT/HCPCS: 36415; 80053; 80061

== ENCOUNTER → 2020-10-29 | Outpatient (CLI) | payer MEDICARE | LOC: LABNPT 14:29 | PROVIDERS: ATTEND Family Medicine | DX: R35.0 Frequency of micturition (principal) | CPT/HCPCS: 87077; 87088; 87186 ==

== ENCOUNTER → 2020-11-08 | Outpatient (CLI) | payer MEDICARE | LOC: LAB FS 10:15 | PROVIDERS: ATTEND Internal Medicine Hematology & Oncology | DX: Z01.812 Encounter for preprocedural laboratory examination (principal); U07.1 COVID-19; C56.9 Malignant neoplasm of unspecified ovary; C80.0 Disseminated malignant neoplasm, unspecified | CPT/HCPCS: 87635 ==

== ENCOUNTER → 2020-11-15 | Outpatient (CLI) | payer MEDICARE ==
[2020-11-15 18:03] LABS: BACTERIA,URINE LARGE /HPF; BILIRUBIN,URINE NEGATIVE (NEGATIVE); CLARITY,URINE SL CLOUDY; COLOR,URINE YELLOW; GLUCOSE, URINE (UA) NEGATIVE (NEGATIVE); KETONES,URINE NEGATIVE (NEGATIVE); LEUKOCYTE ESTERASE ,URINE 2+ (NEGATIVE); NITRITE,URINE POSITIVE (NEGATIVE); PROTEIN,URINE NEGATIVE (NEGATIVE); WBC,URINE >100 /HPF
== END ==
LOC: LAB FS 16:14
PROVIDERS: ATTEND Family Medicine
DX: R39.89 Other symptoms and signs involving the genitourinary system (principal)
CPT/HCPCS: 81000; 87077; 87088; 87186

== ENCOUNTER → 2020-11-15 | Outpatient (CLI) | payer MEDICARE | LOC: LAB FS 11:19 | PROVIDERS: ATTEND Internal Medicine Hematology & Oncology | DX: C56.9 Malignant neoplasm of unspecified ovary (principal); C80.0 Disseminated malignant neoplasm, unspecified; Z20.822 Contact with and (suspected) exposure to COVID-19 | CPT/HCPCS: 87635 ==

== ENCOUNTER → 2020-11-22 | Outpatient (CLI) | payer MEDICARE | LOC: LAB FS 10:36 | PROVIDERS: ATTEND Internal Medicine Hematology & Oncology | DX: Z20.822 Contact with and (suspected) exposure to COVID-19 (principal) | CPT/HCPCS: 87635 ==

== ENCOUNTER → 2020-12-10 | Outpatient (CLI) | payer MEDICARE ==
[2020-12-10 11:44] LABS: BASOPHILS % (AUTO) 0 % (0-10); EOSINOPHILS % (AUTO) 0 % (0-10); HEMATOCRIT 30 % (35-52); HEMOGLOBIN 9.4 G/DL (11.5-16.0); LYMPHOCYTES % (AUTO) 13 % (12-44); MEAN CORPUSCULAR HEMOGLOBIN 28 PG (25-34); MEAN CORPUSCULAR HGB CONC 31 G/DL (32-36); MEAN CORPUSCULAR VOLUME 88 FL (80-99); MEAN PLATELET VOLUME 8.8 FL (7.4-10.4); MONOCYTES % (AUTO) 6 % (0-12); NEUTROPHILS % (AUTO) 78 % (42-75); PLATELET COUNT 119 10^3/uL (130-400); WHITE BLOOD COUNT 20.1 10^3/uL (4.3-11.0)
[2020-12-10 11:45] LABS: LYMPHOCYTES # (AUTO) 2.7 X 10^3 (1.0-4.0); MONOCYTES # (AUTO) 1.3 X 10^3 (0.0-1.0); NEUTROPHILS # (AUTO) 15.6 X 10^3 (1.8-7.8)
[2020-12-10 12:22] LABS: CALCIUM 9.7 MG/DL (8.5-10.1); CREATININE SERUM 0.97 MG/DL (0.60-1.30); POTASSIUM 4.3 MMOL/L (3.6-5.0)
== END ==
LOC: LAB FS 11:17
PROVIDERS: ATTEND Internal Medicine Hematology & Oncology
DX: C56.9 Malignant neoplasm of unspecified ovary (principal)
CPT/HCPCS: 36415; 80048; 85025

== ENCOUNTER → 2020-12-13 | Outpatient (CLI) | payer MEDICARE ==
[2020-12-13 15:00] LABS: COLOR,URINE YELLOW
[2020-12-13 15:01] LABS: BACTERIA,URINE LARGE /HPF; BILIRUBIN,URINE NEGATIVE (NEGATIVE); CLARITY,URINE CLOUDY; GLUCOSE, URINE (UA) NEGATIVE (NEGATIVE); KETONES,URINE TRACE (NEGATIVE); LEUKOCYTE ESTERASE ,URINE 1+ (NEGATIVE); NITRITE,URINE NEGATIVE (NEGATIVE); PH,URINE 6.5 (5-9); PROTEIN,URINE NEGATIVE (NEGATIVE); WBC,URINE >100 /HPF
== END ==
LOC: LAB FS 14:33
PROVIDERS: ATTEND Family Medicine
DX: R30.9 Painful micturition, unspecified (principal)
CPT/HCPCS: 81000; 87088

== ENCOUNTER → 2020-12-31 | Outpatient (CLI) | payer MEDICARE ==
[~2020-12-31] MED LIST changes: -LISI40TA PO; +LISI40TA9 PO
[2020-12-31 11:38] LABS: BUN/CREATININE RATIO 18; CARBON DIOXIDE 26 MMOL/L (21-32); CHLORIDE 103 MMOL/L (98-107); CREATININE SERUM 0.87 MG/DL (0.60-1.30); GFR ESTIMATED > 60; POTASSIUM 4.3 MMOL/L (3.6-5.0); SODIUM 142 MMOL/L (135-145)
[2020-12-31 11:39] LABS: CALCIUM 10.1 MG/DL (8.5-10.1); GLUCOSE 95 MG/DL (70-105)
[2020-12-31 11:41] LABS: WHITE BLOOD COUNT 47.3 10^3/uL (4.3-11.0)
[2020-12-31 11:42] LABS: HEMATOCRIT 29 % (35-52); HEMOGLOBIN 9.1 G/DL (11.5-16.0); MEAN CORPUSCULAR HEMOGLOBIN 28 PG (25-34); MEAN CORPUSCULAR HGB CONC 32 G/DL (32-36); MEAN CORPUSCULAR VOLUME 89 FL (80-99); PLATELET COUNT 181 10^3/uL (130-400)
[2020-12-31 11:43] LABS: BASOPHILS % (AUTO) 0 % (0-10); EOSINOPHILS % (AUTO) 0 % (0-10); LYMPHOCYTES % (AUTO) 11 % (12-44); MONOCYTES % (AUTO) 8 % (0-12); NEUTROPHILS % (AUTO) 74 % (42-75)
[2020-12-31 11:44] LABS: LYMPHOCYTES # (AUTO) 5.1 X 10^3 (1.0-4.0); MONOCYTES # (AUTO) 3.9 X 10^3 (0.0-1.0); NEUTROPHILS # (AUTO) 35.1 X 10^3 (1.8-7.8)
== END ==
LOC: LAB FS 10:47
PROVIDERS: ATTEND Internal Medicine Hematology & Oncology
DX: C56.2 Malignant neoplasm of left ovary (principal)
CPT/HCPCS: 36415; 80048; 85025

== ENCOUNTER → 2021-01-03 | Outpatient (CLI) | payer MEDICARE | LOC: LAB FS 10:49 | PROVIDERS: ATTEND Internal Medicine Hematology & Oncology | DX: Z20.822 Contact with and (suspected) exposure to COVID-19 (principal) | CPT/HCPCS: 87635 ==

== ENCOUNTER → 2021-01-21 | Outpatient (CLI) | payer MEDICARE ==
[2021-01-21 11:29] LABS: BASOPHILS % (AUTO) 0 % (0-10); EOSINOPHILS % (AUTO) 0 % (0-10); HEMATOCRIT 28 % (35-52); HEMOGLOBIN 8.8 G/DL (11.5-16.0); LYMPHOCYTES % (AUTO) 8 % (12-44); MEAN CORPUSCULAR HEMOGLOBIN 29 PG (25-34); MEAN CORPUSCULAR HGB CONC 32 G/DL (32-36); MEAN CORPUSCULAR VOLUME 91 FL (80-99); MEAN PLATELET VOLUME 9.9 FL (7.4-10.4); MONOCYTES % (AUTO) 7 % (0-12); PLATELET COUNT 133 10^3/uL (130-400)
[2021-01-21 11:30] LABS: BASOPHILS # (AUTO) 0.1 10^3/uL (0.0-0.1); EOSINOPHILS # (AUTO) 0.1 10^3/uL (0.0-0.3); LYMPHOCYTES # (AUTO) 3.8 X 10^3 (1.0-4.0); MONOCYTES # (AUTO) 2.9 X 10^3 (0.0-1.0); NEUTROPHILS # (AUTO) 36.5 X 10^3 (1.8-7.8); NEUTROPHILS % (AUTO) 81 % (42-75)
[2021-01-21 11:45] LABS: CALCIUM 9.6 MG/DL (8.5-10.1); CREATININE SERUM 1.06 MG/DL (0.60-1.30); POTASSIUM 4.1 MMOL/L (3.6-5.0)
[2021-01-21 11:50] LABS: WHITE BLOOD COUNT 45.4 10^3/uL (4.3-11.0)
== END ==
LOC: LAB FS 11:02
PROVIDERS: ATTEND Nurse Practitioner Adult Health
DX: C56.2 Malignant neoplasm of left ovary (principal)
CPT/HCPCS: 36415; 80048; 85025

== ENCOUNTER → 2021-01-24 | Outpatient (CLI) | payer MEDICARE | LOC: LAB FS 10:00 | PROVIDERS: ATTEND Internal Medicine Hematology & Oncology | DX: Z01.812 Encounter for preprocedural laboratory examination (principal); Z20.822 Contact with and (suspected) exposure to COVID-19 | CPT/HCPCS: 87635 ==

== ENCOUNTER → 2021-02-11 | Outpatient (CLI) | payer MEDICARE ==
[2021-02-11 12:10] LABS: CREATININE SERUM 1.05 MG/DL (0.60-1.30); POTASSIUM 4.2 MMOL/L (3.6-5.0)
[2021-02-11 14:15] LABS: HEMATOCRIT 37 % (35-52); HEMOGLOBIN 11.8 G/DL (11.5-16.0); MEAN CORPUSCULAR HEMOGLOBIN 30 PG (25-34); MEAN CORPUSCULAR HGB CONC 32 G/DL (32-36); MEAN CORPUSCULAR VOLUME 95 FL (80-99); MEAN PLATELET VOLUME 10.2 FL (7.4-10.4); PLATELET COUNT 117 10^3/uL (130-400); WHITE BLOOD COUNT 38.5 10^3/uL (4.3-11.0)
[2021-02-11 14:16] LABS: BASOPHILS # (AUTO) 0.1 10^3/uL (0.0-0.1); BASOPHILS % (AUTO) 0 % (0-10); EOSINOPHILS % (AUTO) 0 % (0-10); LYMPHOCYTES # (AUTO) 3.1 X 10^3 (1.0-4.0); LYMPHOCYTES % (AUTO) 8 % (12-44); MONOCYTES # (AUTO) 2.3 X 10^3 (0.0-1.0); MONOCYTES % (AUTO) 6 % (0-12); NEUTROPHILS # (AUTO) 31.3 X 10^3 (1.8-7.8); NEUTROPHILS % (AUTO) 81 % (42-75)
== END ==
LOC: LAB FS 10:58
PROVIDERS: ATTEND Nurse Practitioner Adult Health
DX: C56.2 Malignant neoplasm of left ovary (principal)
CPT/HCPCS: 36415; 80048; 85025

== ENCOUNTER → 2021-02-14 | Outpatient (CLI) | payer MEDICARE | LOC: LAB FS 10:30 | PROVIDERS: ATTEND Internal Medicine Hematology & Oncology | DX: Z20.822 Contact with and (suspected) exposure to COVID-19 (principal) | CPT/HCPCS: 87635 ==

== ENCOUNTER 2021-02-25 14:17 | Outpatient (RCR) | payer MEDICARE ==
[2020-12-03 11:24] LABS: BASOPHILS % (AUTO) 0 % (0-10); EOSINOPHILS # (AUTO) 0.1 10^3/uL (0.0-0.3); EOSINOPHILS % (AUTO) 1 % (0-10); HEMATOCRIT 32 % (35-52); HEMOGLOBIN 10.2 g/dL (11.5-16.0); LYMPHOCYTES # (AUTO) 1.8 10^3/uL (1.0-4.0); LYMPHOCYTES % (AUTO) 29 % (12-44); MEAN CORPUSCULAR HEMOGLOBIN 27 pg (25-34); MEAN CORPUSCULAR HGB CONC 32 g/dL (32-36); MEAN CORPUSCULAR VOLUME 86 fL (80-99); MEAN PLATELET VOLUME 9.3 fL (9.0-12.2); MONOCYTES # (AUTO) 0.3 10^3/uL (0.0-1.0); MONOCYTES % (AUTO) 6 % (0-12); NEUTROPHILS % (AUTO) 64 % (42-75); PLATELET COUNT 257 10^3/uL (130-400); WHITE BLOOD COUNT 6.2 10^3/uL (4.3-11.0)
[2020-12-03 11:41] LABS: BUN/CREATININE RATIO 22; CALCIUM 9.5 MG/DL (8.5-10.1); CARBON DIOXIDE 25 MMOL/L (21-32); CHLORIDE 99 MMOL/L (98-107); CREATININE SERUM 0.89 MG/DL (0.60-1.30); GFR ESTIMATED > 60; GLUCOSE 100 MG/DL (70-105); POTASSIUM 4.4 MMOL/L (3.6-5.0); SODIUM 136 MMOL/L (135-145)
[2020-12-24 09:50] LABS: BASOPHILS % (AUTO) 0 % (0-10); EOSINOPHILS % (AUTO) 0 % (0-10); HEMATOCRIT 28 % (35-52); LYMPHOCYTES # (AUTO) 1.8 10^3/uL (1.0-4.0); LYMPHOCYTES % (AUTO) 26 % (12-44); MEAN CORPUSCULAR HEMOGLOBIN 27 pg (25-34); MEAN CORPUSCULAR HGB CONC 32 g/dL (32-36); MEAN CORPUSCULAR VOLUME 86 fL (80-99); MEAN PLATELET VOLUME 8.7 fL (9.0-12.2); MONOCYTES # (AUTO) 1.1 10^3/uL (0.0-1.0); MONOCYTES % (AUTO) 15 % (0-12); NEUTROPHILS % (AUTO) 57 % (42-75); PLATELET COUNT 336 10^3/uL (130-400); WHITE BLOOD COUNT 6.9 10^3/uL (4.3-11.0)
[2020-12-24 10:09] LABS: BUN/CREATININE RATIO 22; CALCIUM 9.6 MG/DL (8.5-10.1); CARBON DIOXIDE 25 MMOL/L (21-32); CHLORIDE 100 MMOL/L (98-107); CREATININE SERUM 0.79 MG/DL (0.60-1.30); GFR ESTIMATED > 60; GLUCOSE 98 MG/DL (70-105); POTASSIUM 4.4 MMOL/L (3.6-5.0); SODIUM 138 MMOL/L (135-145)
[2021-01-13 09:50] LABS: BASOPHILS % (AUTO) 0 % (0-10); EOSINOPHILS % (AUTO) 0 % (0-10); HEMATOCRIT 26 % (35-52); HEMOGLOBIN 8.4 g/dL (11.5-16.0); LYMPHOCYTES # (AUTO) 1.8 10^3/uL (1.0-4.0); LYMPHOCYTES % (AUTO) 27 % (12-44); MEAN CORPUSCULAR HEMOGLOBIN 29 pg (25-34); MEAN CORPUSCULAR HGB CONC 32 g/dL (32-36); MEAN CORPUSCULAR VOLUME 89 fL (80-99); MEAN PLATELET VOLUME 9.2 fL (9.0-12.2); MONOCYTES # (AUTO) 0.6 10^3/uL (0.0-1.0); MONOCYTES % (AUTO) 9 % (0-12); NEUTROPHILS # (AUTO) 4.2 10^3/uL (1.8-7.8); NEUTROPHILS % (AUTO) 63 % (42-75); PLATELET COUNT 436 10^3/uL (130-400); WHITE BLOOD COUNT 6.7 10^3/uL (4.3-11.0)
[2021-01-13 10:11] LABS: BUN/CREATININE RATIO 23; CALCIUM 8.9 MG/DL (8.5-10.1); CARBON DIOXIDE 24 MMOL/L (21-32); CHLORIDE 105 MMOL/L (98-107); CREATININE SERUM 0.87 MG/DL (0.60-1.30); GFR ESTIMATED > 60; GLUCOSE 95 MG/DL (70-105); POTASSIUM 4.3 MMOL/L (3.6-5.0); SODIUM 140 MMOL/L (135-145)
[2021-02-03 13:17] LABS: BASOPHILS % (AUTO) 0 % (0-10); EOSINOPHILS % (AUTO) 0 % (0-10); HEMATOCRIT 27 % (35-52); HEMOGLOBIN 8.6 g/dL (11.5-16.0); LYMPHOCYTES # (AUTO) 2.5 10^3/uL (1.0-4.0); LYMPHOCYTES % (AUTO) 25 % (12-44); MEAN CORPUSCULAR HEMOGLOBIN 30 pg (25-34); MEAN CORPUSCULAR HGB CONC 33 g/dL (32-36); MEAN CORPUSCULAR VOLUME 91 fL (80-99); MEAN PLATELET VOLUME 9.2 fL (9.0-12.2); MONOCYTES # (AUTO) 0.8 10^3/uL (0.0-1.0); MONOCYTES % (AUTO) 8 % (0-12); NEUTROPHILS # (AUTO) 6.6 10^3/uL (1.8-7.8); NEUTROPHILS % (AUTO) 65 % (42-75); PLATELET COUNT 293 10^3/uL (130-400)
[2021-02-03 13:42] LABS: BUN/CREATININE RATIO 27; CALCIUM 9.1 MG/DL (8.5-10.1); CARBON DIOXIDE 26 MMOL/L (21-32); CHLORIDE 101 MMOL/L (98-107); CREATININE SERUM 0.79 MG/DL (0.60-1.30); GFR ESTIMATED > 60; GLUCOSE 81 MG/DL (70-105); POTASSIUM 4.7 MMOL/L (3.6-5.0); SODIUM 135 MMOL/L (135-145)
[2021-02-24 13:38] LABS: BASOPHILS # (AUTO) 0.1 10^3/uL (0.0-0.1); BASOPHILS % (AUTO) 1 % (0-10); EOSINOPHILS # (AUTO) 0.1 10^3/uL (0.0-0.3); EOSINOPHILS % (AUTO) 1 % (0-10); HEMATOCRIT 27 % (35-52); HEMOGLOBIN 8.4 g/dL (11.5-16.0); LYMPHOCYTES # (AUTO) 2.6 10^3/uL (1.0-4.0); LYMPHOCYTES % (AUTO) 24 % (12-44); MEAN CORPUSCULAR HEMOGLOBIN 31 pg (25-34); MEAN CORPUSCULAR HGB CONC 32 g/dL (32-36); MEAN CORPUSCULAR VOLUME 97 fL (80-99); MEAN PLATELET VOLUME 9.1 fL (9.0-12.2); MONOCYTES # (AUTO) 0.9 10^3/uL (0.0-1.0); MONOCYTES % (AUTO) 8 % (0-12); NEUTROPHILS # (AUTO) 7.1 10^3/uL (1.8-7.8); NEUTROPHILS % (AUTO) 66 % (42-75); PLATELET COUNT 238 10^3/uL (130-400); WHITE BLOOD COUNT 10.8 10^3/uL (4.3-11.0)
[2021-02-24 13:55] LABS: BUN/CREATININE RATIO 25; CALCIUM 9.1 MG/DL (8.5-10.1); CARBON DIOXIDE 24 MMOL/L (21-32); CHLORIDE 102 MMOL/L (98-107); CREATININE SERUM 0.84 MG/DL (0.60-1.30); GFR ESTIMATED > 60; GLUCOSE 117 MG/DL (70-105); POTASSIUM 4.1 MMOL/L (3.6-5.0); SODIUM 138 MMOL/L (135-145)
[~2021-02-25] VITALS: Ht 154.9 cm; Wt 62.6 kg
[~2021-02-25 14:17] MED LIST changes: +CALC600T91 PO; -CLC600T PO; +GEMCITABINE HCL 1 GM, GEMCITABINE HCL 200 MG in NS (IVPB) CANCER CENTER 100 ML IV SCH; +GEMCITABINE HCL IV SCH; +NS IV 1000 ML (CANCER CTR) IV SCH; +NS IV SCH; +PEGFILGRASTIM 6 MG/0.6 ML ONPRO KIT SQ SCH; +PEGFILGRASTIM 6 MG/0.6ML NEULASTA SC SCH; +PEGFILGRASTIM-BMEZ 6 MG/0.6 ML ZIEXTENZO SQ SCH
== END 2021-03-03 | disposition home or self-care (01) ==
LOC: ONC 14:17
PROVIDERS: ATTEND Internal Medicine Hematology & Oncology
DX: Z51.11 Encounter for antineoplastic chemotherapy (principal); C56.2 Malignant neoplasm of left ovary; C78.6 Secondary malignant neoplasm of retroperitoneum and peritoneum; K57.90 Diverticulosis of intestine, part unspecified, without perforation or abscess without bleeding; I10 Essential (primary) hypertension; E78.2 Mixed hyperlipidemia; R73.9 Hyperglycemia, unspecified; Z92.21 Personal history of antineoplastic chemotherapy; Z85.820 Personal history of malignant melanoma of skin; Z80.9 Family history of malignant neoplasm, unspecified
CPT/HCPCS: 80048; 85025; 96375; 96377; 96413; G0463; 36591; 96372; J2505

== ENCOUNTER → 2021-03-03 | Outpatient (CLI) | payer MEDICARE ==
[~2021-03-03] MED LIST changes: -GEMCITABINE HCL 1 GM, GEMCITABINE HCL 200 MG in NS (IVPB) CANCER CENTER 100 ML IV SCH; -GEMCITABINE HCL IV SCH; -NS IV 1000 ML (CANCER CTR) IV SCH; -NS IV SCH; -PEGFILGRASTIM 6 MG/0.6 ML ONPRO KIT SQ SCH; -PEGFILGRASTIM 6 MG/0.6ML NEULASTA SC SCH; -PEGFILGRASTIM-BMEZ 6 MG/0.6 ML ZIEXTENZO SQ SCH
[2021-03-03 10:32] LABS: BASOPHILS % (AUTO) 0 % (0-10); EOSINOPHILS % (AUTO) 0 % (0-10); HEMATOCRIT 28 % (35-52); HEMOGLOBIN 8.6 G/DL (11.5-16.0); LYMPHOCYTES % (AUTO) 9 % (12-44); MEAN CORPUSCULAR HEMOGLOBIN 31 PG (25-34); MEAN CORPUSCULAR HGB CONC 31 G/DL (32-36); MEAN CORPUSCULAR VOLUME 100 FL (80-99); MEAN PLATELET VOLUME 9.6 FL (7.4-10.4); MONOCYTES % (AUTO) 7 % (0-12); PLATELET COUNT 133 10^3/uL (130-400)
[2021-03-03 10:33] LABS: LYMPHOCYTES # (AUTO) 3.9 X 10^3 (1.0-4.0); MONOCYTES # (AUTO) 3.2 X 10^3 (0.0-1.0); NEUTROPHILS # (AUTO) 35.4 X 10^3 (1.8-7.8); NEUTROPHILS % (AUTO) 79 % (42-75)
[2021-03-03 10:38] LABS: WHITE BLOOD COUNT 44.6 10^3/uL (4.3-11.0)
[2021-03-03 11:07] LABS: CREATININE SERUM 0.98 MG/DL (0.60-1.30); POTASSIUM 3.9 MMOL/L (3.6-5.0)
[2021-03-03 11:08] LABS: CALCIUM 9.7 MG/DL (8.5-10.1)
== END ==
LOC: LAB FS 10:15
PROVIDERS: ATTEND Family Medicine
DX: C56.2 Malignant neoplasm of left ovary (principal)
CPT/HCPCS: 36415; 80048; 85025

== ENCOUNTER → 2021-03-07 | Outpatient (CLI) | payer MEDICARE | LOC: LAB FS 11:00 | PROVIDERS: ATTEND Internal Medicine Hematology & Oncology | DX: Z01.812 Encounter for preprocedural laboratory examination (principal); Z20.822 Contact with and (suspected) exposure to COVID-19 | CPT/HCPCS: 87635 ==

== ENCOUNTER → 2021-03-24 | Outpatient (CLI) | payer MEDICARE ==
[2021-03-24 11:17] LABS: HEMATOCRIT 26 % (35-52); HEMOGLOBIN 8.3 G/DL (11.5-16.0); MEAN CORPUSCULAR HEMOGLOBIN 33 PG (25-34); MEAN CORPUSCULAR VOLUME 106 FL (80-99); WHITE BLOOD COUNT 36.8 10^3/uL (4.3-11.0)
[2021-03-24 11:18] LABS: BASOPHILS % (AUTO) 0 % (0-10); EOSINOPHILS % (AUTO) 0 % (0-10); LYMPHOCYTES % (AUTO) 10 % (12-44); MEAN CORPUSCULAR HGB CONC 32 G/DL (32-36); MEAN PLATELET VOLUME 10.2 FL (7.4-10.4); MONOCYTES % (AUTO) 7 % (0-12); NEUTROPHILS % (AUTO) 81 % (42-75); PLATELET COUNT 105 10^3/uL (130-400)
[2021-03-24 11:19] LABS: BASOPHILS # (AUTO) 0.1 10^3/uL (0.0-0.1); LYMPHOCYTES # (AUTO) 3.5 X 10^3 (1.0-4.0); MONOCYTES # (AUTO) 2.7 X 10^3 (0.0-1.0); NEUTROPHILS # (AUTO) 29.6 X 10^3 (1.8-7.8)
[2021-03-24 11:52] LABS: CREATININE SERUM 0.97 MG/DL (0.60-1.30); POTASSIUM 3.9 MMOL/L (3.6-5.0)
[2021-03-24 11:53] LABS: CALCIUM 9.5 MG/DL (8.5-10.1)
== END ==
LOC: LAB FS 10:50
PROVIDERS: ATTEND Nurse Practitioner Adult Health
DX: C56.2 Malignant neoplasm of left ovary (principal)
CPT/HCPCS: 36415; 80048; 85025

== ENCOUNTER → 2021-03-28 | Outpatient (CLI) | payer MEDICARE ==
[~2021-03-28] MED LIST changes: +BARIUM SUSPENSION 2.1% (VANILLA SILQ) 450 ML PO ONE; +CATHETER FLUSH 10 ML SYR IV PRN; +HOLD METFORMIN - RECEIVED CONTRAST 20 ML VIAL IV SCH; +IOHEXOL 350 MG/ML 100 ML (OMNIPAQUE 350) VIAL IV ONE; +NS 100 ML (IVPB) BAG IV ONE
--- NOTE | 2021-03-28 15:46 | Diagnostic Imaging Report ---
PROCEDURE: CT chest with contrast, CT abdomen and pelvis with and without contrast. TECHNIQUE: Pre and post intravenous contrast axial imaging of the abdomen and pelvis and post contrast axial imaging of the chest were performed. Auto Exposure Controls were utilized during the CT exam to meet ALARA standards for radiation dose reduction. INDICATION: Ovarian cancer. Follow-up. COMPARISON: 05/17/2020. CT chest: The heart size is within normal limits. No pericardial effusion is present. A left port is stable in configuration. There is no mediastinal, hilar, or axillary lymphadenopathy. New cwgwd-fm-ivtjhhrv right and trace left pleural effusions are present with associated atelectasis in the right lung base. Stable nodule in the right upper lobe measuring 0.2 cm. Groundglass nodule in the left lower lobe is stable measuring 0.8 cm. No new suspicious pulmonary nodules are seen. No focal consolidations are present. No central endobronchial obstructing lesions. The osseous structures demonstrate degenerative changes without focal lytic or blastic lesions. CT abdomen and pelvis: No focal hepatic lesions are seen. The previously described hypoattenuating foci in the liver are not well seen on this exam. No enhancing hepatic lesions. The gallbladder is unremarkable. The portal vein is patent. The spleen, pancreas, adrenal glands, and kidneys have a normal appearance. There is no pathologically enlarged mesenteric or retroperitoneal adenopathy. The bowel loops are nondilated. There is no free air. The osseous structures are age-appropriate. Ureters and bladder are grossly normal. Hysterectomy changes are noted. A small amount of free fluid is seen in the pelvis. There is no free air, loculated collection, or adenopathy in the pelvis. IMPRESSION: 1. New lztkc-xs-rxdiysmv right and trace left pleural effusions with atelectasis in the right lung base. 2. Stable opacities in the lungs without development of new suspicious pulmonary nodules. Recommend continued attention on follow-up. 3. No evidence of lymphadenopathy in the chest, abdomen, and pelvis. 4. Small amount of free fluid in the pelvis, similar to the prior exam. No evidence of omental caking seen. Dictated by: Dictated on workstation # [id number]
== END ==
LOC: RAD FS 12:50
PROVIDERS: ATTEND Internal Medicine Hematology & Oncology
DX: C56.2 Malignant neoplasm of left ovary (principal); J98.11 Atelectasis; R91.8 Other nonspecific abnormal finding of lung field; R18.8 Other ascites
CPT/HCPCS: 71260; 74178

== ENCOUNTER → 2021-03-28 | Outpatient (CLI) | payer MEDICARE ==
[~2021-03-28] MED LIST changes: -BARIUM SUSPENSION 2.1% (VANILLA SILQ) 450 ML PO ONE; -CATHETER FLUSH 10 ML SYR IV PRN; -HOLD METFORMIN - RECEIVED CONTRAST 20 ML VIAL IV SCH; -IOHEXOL 350 MG/ML 100 ML (OMNIPAQUE 350) VIAL IV ONE; -NS 100 ML (IVPB) BAG IV ONE
== END ==
LOC: LAB FS 11:00
PROVIDERS: ATTEND Internal Medicine Hematology & Oncology
DX: Z01.812 Encounter for preprocedural laboratory examination (principal); Z20.822 Contact with and (suspected) exposure to COVID-19
CPT/HCPCS: 87635

== ENCOUNTER → 2021-04-14 | Outpatient (CLI) | payer MEDICARE ==
[2021-04-14 11:16] LABS: BASOPHILS % (AUTO) 0 % (0-10); EOSINOPHILS % (AUTO) 0 % (0-10); HEMATOCRIT 28 % (35-52); HEMOGLOBIN 8.9 G/DL (11.5-16.0); LYMPHOCYTES % (AUTO) 8 % (12-44); MEAN CORPUSCULAR HEMOGLOBIN 33 PG (25-34); MEAN CORPUSCULAR HGB CONC 32 G/DL (32-36); MEAN CORPUSCULAR VOLUME 105 FL (80-99); MEAN PLATELET VOLUME 9.3 FL (7.4-10.4); MONOCYTES % (AUTO) 7 % (0-12); NEUTROPHILS % (AUTO) 80 % (42-75); PLATELET COUNT 109 10^3/uL (130-400)
[2021-04-14 11:17] LABS: LYMPHOCYTES # (AUTO) 3.9 X 10^3 (1.0-4.0); MONOCYTES # (AUTO) 3.6 X 10^3 (0.0-1.0); NEUTROPHILS # (AUTO) 39.4 X 10^3 (1.8-7.8); WHITE BLOOD COUNT 49.1 10^3/uL (4.3-11.0)
[2021-04-14 11:37] LABS: CALCIUM 9.9 MG/DL (8.5-10.1); CREATININE SERUM 0.91 MG/DL (0.60-1.30); POTASSIUM 4.3 MMOL/L (3.6-5.0)
[2021-04-14 11:58] LABS: ANISOCYTOSIS SLIGHT; BAND NEUTROPHILS 15 %; LYMPHOCYTES % (MANUAL) 9 %; MICROCYTOSIS SLIGHT; MONOCYTES % (MANUAL) 4 %; NEUTROPHILS % (MANUAL) 72 %; POIKILOCYTOSIS SLIGHT; POLYCHROMASIA SLIGHT
== END ==
LOC: LAB FS 10:52
PROVIDERS: ATTEND Family Medicine
DX: C56.9 Malignant neoplasm of unspecified ovary (principal)
CPT/HCPCS: 36415; 80048; 85007; 85027

== ENCOUNTER 2021-04-29 14:59 | Outpatient (RCR) | payer MEDICARE ==
[2021-03-17 14:45] LABS: BASOPHILS % (AUTO) 0 % (0-10); EOSINOPHILS # (AUTO) 0.1 10^3/uL (0.0-0.3); EOSINOPHILS % (AUTO) 1 % (0-10); HEMATOCRIT 26 % (35-52); HEMOGLOBIN 8.3 g/dL (11.5-16.0); LYMPHOCYTES % (AUTO) 19 % (12-44); MEAN CORPUSCULAR HEMOGLOBIN 33 pg (25-34); MEAN CORPUSCULAR HGB CONC 32 g/dL (32-36); MEAN CORPUSCULAR VOLUME 102 fL (80-99); MEAN PLATELET VOLUME 9.1 fL (9.0-12.2); MONOCYTES # (AUTO) 0.6 10^3/uL (0.0-1.0); MONOCYTES % (AUTO) 5 % (0-12); NEUTROPHILS # (AUTO) 8.2 10^3/uL (1.8-7.8); NEUTROPHILS % (AUTO) 75 % (42-75); PLATELET COUNT 181 10^3/uL (130-400)
[2021-03-17 15:56] LABS: CALCIUM 8.8 MG/DL (8.5-10.1); CREATININE SERUM 1.32 MG/DL (0.60-1.30)
[2021-04-07 13:38] LABS: BASOPHILS % (AUTO) 0 % (0-10); EOSINOPHILS # (AUTO) 0.1 10^3/uL (0.0-0.3); EOSINOPHILS % (AUTO) 1 % (0-10); HEMATOCRIT 27 % (35-52); HEMOGLOBIN 8.8 g/dL (11.5-16.0); LYMPHOCYTES % (AUTO) 19 % (12-44); MEAN CORPUSCULAR HEMOGLOBIN 34 pg (25-34); MEAN CORPUSCULAR HGB CONC 32 g/dL (32-36); MEAN CORPUSCULAR VOLUME 104 fL (80-99); MEAN PLATELET VOLUME 9.3 fL (9.0-12.2); MONOCYTES # (AUTO) 0.9 10^3/uL (0.0-1.0); MONOCYTES % (AUTO) 8 % (0-12); NEUTROPHILS # (AUTO) 7.5 10^3/uL (1.8-7.8); NEUTROPHILS % (AUTO) 71 % (42-75); PLATELET COUNT 278 10^3/uL (130-400); WHITE BLOOD COUNT 10.6 10^3/uL (4.3-11.0)
[2021-04-07 13:56] LABS: CALCIUM 9.3 MG/DL (8.5-10.1); CREATININE SERUM 0.98 MG/DL (0.60-1.30); POTASSIUM 4.5 MMOL/L (3.6-5.0)
[2021-04-28 14:24] LABS: BASOPHILS % (AUTO) 0 % (0-10); EOSINOPHILS # (AUTO) 0.1 10^3/uL (0.0-0.3); EOSINOPHILS % (AUTO) 1 % (0-10); HEMATOCRIT 25 % (35-52); HEMOGLOBIN 7.9 g/dL (11.5-16.0); LYMPHOCYTES # (AUTO) 2.4 X 10^3 (1.0-4.0); LYMPHOCYTES % (AUTO) 27 % (12-44); MEAN CORPUSCULAR HEMOGLOBIN 33 pg (25-34); MEAN CORPUSCULAR HGB CONC 32 g/dL (32-36); MEAN CORPUSCULAR VOLUME 106 fL (80-99); MEAN PLATELET VOLUME 9.2 fL (9.0-12.2); MONOCYTES # (AUTO) 0.8 X 10^3 (0.0-1.0); MONOCYTES % (AUTO) 9 % (0-12); NEUTROPHILS # (AUTO) 5.7 X 10^3 (1.8-7.8); NEUTROPHILS % (AUTO) 63 % (42-75); PLATELET COUNT 188 10^3/uL (130-400)
[2021-04-28 14:40] LABS: BUN/CREATININE RATIO 21; CALCIUM 9.1 MG/DL (8.5-10.1); CARBON DIOXIDE 27 MMOL/L (21-32); CHLORIDE 102 MMOL/L (98-107); CREATININE SERUM 0.77 MG/DL (0.60-1.30); GFR ESTIMATED > 60; GLUCOSE 106 MG/DL (70-105); POTASSIUM 4.2 MMOL/L (3.6-5.0); SODIUM 138 MMOL/L (135-145)
[~2021-04-29 14:59] MED LIST changes: +GEMCITABINE HCL IV SCH; +NS IV 1000 ML (CANCER CTR) IV SCH; +NS IV SCH; +PEGFILGRASTIM-BMEZ 6 MG/0.6 ML ZIEXTENZO SQ SCH
[2021-05-04] MEDS ORDERED: NS IV 1000 ML (CANCER CTR) IV SCH (14:30)
== END 2021-06-15 | disposition home or self-care (01) ==
LOC: ONC 14:59
PROVIDERS: ATTEND Internal Medicine Hematology & Oncology
DX: Z51.11 Encounter for antineoplastic chemotherapy (principal); C56.2 Malignant neoplasm of left ovary; C78.6 Secondary malignant neoplasm of retroperitoneum and peritoneum; K57.90 Diverticulosis of intestine, part unspecified, without perforation or abscess without bleeding; I10 Essential (primary) hypertension; E78.2 Mixed hyperlipidemia; R73.9 Hyperglycemia, unspecified; G62.9 Polyneuropathy, unspecified; Z92.21 Personal history of antineoplastic chemotherapy; Z85.820 Personal history of malignant melanoma of skin; Z80.9 Family history of malignant neoplasm, unspecified; Z79.899 Other long term (current) drug therapy
CPT/HCPCS: 80048; 85025; 96375; 96413; G0463; 36591; 96372

== ENCOUNTER → 2021-05-05 | Outpatient (CLI) | payer MEDICARE ==
[~2021-05-05] MED LIST changes: -GEMCITABINE HCL IV SCH; -NS IV 1000 ML (CANCER CTR) IV SCH; -NS IV SCH; -PEGFILGRASTIM-BMEZ 6 MG/0.6 ML ZIEXTENZO SQ SCH
[2021-05-05 10:25] LABS: HEMATOCRIT 28 % (35-52); HEMOGLOBIN 8.8 G/DL (11.5-16.0); MEAN CORPUSCULAR HEMOGLOBIN 33 PG (25-34); MEAN CORPUSCULAR HGB CONC 32 G/DL (32-36); MEAN CORPUSCULAR VOLUME 105 FL (80-99); MEAN PLATELET VOLUME 9.4 FL (7.4-10.4); PLATELET COUNT 118 10^3/uL (130-400); WHITE BLOOD COUNT 36.8 10^3/uL (4.3-11.0)
[2021-05-05 10:26] LABS: BASOPHILS # (AUTO) 0.1 10^3/uL (0.0-0.1); BASOPHILS % (AUTO) 0 % (0-10); EOSINOPHILS % (AUTO) 0 % (0-10); LYMPHOCYTES # (AUTO) 3.9 X 10^3 (1.0-4.0); LYMPHOCYTES % (AUTO) 11 % (12-44); MONOCYTES # (AUTO) 2.8 X 10^3 (0.0-1.0); MONOCYTES % (AUTO) 8 % (0-12); NEUTROPHILS # (AUTO) 28.9 X 10^3 (1.8-7.8); NEUTROPHILS % (AUTO) 78 % (42-75)
[2021-05-05 10:58] LABS: BAND NEUTROPHILS 15 %; BASOPHILS % (MANUAL) 0 %; EOSINOPHILS % (MANUAL) 0 %; LYMPHOCYTES % (MANUAL) 3 %; METAMYELOCYTES % 2 %; MONOCYTES % (MANUAL) 9 %; NEUTROPHILS % (MANUAL) 71 %
[2021-05-05 10:59] LABS: ANISOCYTOSIS SLIGHT; POLYCHROMASIA SLIGHT
[2021-05-05 11:32] LABS: BUN/CREATININE RATIO 17; CALCIUM 9.9 MG/DL (8.5-10.1); CARBON DIOXIDE 25 MMOL/L (21-32); CHLORIDE 106 MMOL/L (98-107); CREATININE SERUM 0.88 MG/DL (0.60-1.30); GFR ESTIMATED > 60; GLUCOSE 92 MG/DL (70-105); SODIUM 143 MMOL/L (135-145)
== END ==
LOC: LAB FS 09:51
PROVIDERS: ATTEND Family Medicine
DX: C56.2 Malignant neoplasm of left ovary (principal)
CPT/HCPCS: 36415; 80048; 85007; 85027

== ENCOUNTER → 2021-05-11 | Outpatient (CLI) | payer MEDICARE ==
[~2021-05-11] MED LIST changes: +CATHETER FLUSH 10 ML SYR IV PRN; +HOLD METFORMIN - RECEIVED CONTRAST 20 ML VIAL IV SCH; +IOHEXOL 350 MG/ML 100 ML (OMNIPAQUE 350) VIAL IV ONE; +NS 100 ML (IVPB) BAG IV ONE
--- NOTE | 2021-05-11 16:02 | Diagnostic Imaging Report ---
PROCEDURE: CT chest, abdomen, and pelvis with contrast. TECHNIQUE: Multiple contiguous axial images were obtained through the chest, abdomen, and pelvis after the administration of intravenous contrast. Auto Exposure Controls were utilized during the CT exam to meet ALARA standards for radiation dose reduction. INDICATION: Ovarian cancer, followup. Correlation is made with prior CT from 05/17/2020. CT CHEST: A left chest wall port is noted. No axillary lymphadenopathy is detected. No mediastinal or hilar lymphadenopathy is detected. No pericardial fluid. Patient has developed a small right and trace left pleural effusion. Tiny nodule right upper lobe, image 46 is stable. No other pulmonary masses are seen. There is some compressive atelectasis in the right lower lobe. IMPRESSION: 1. Development of bilateral pleural effusions, right greater when compared with prior CT from May 2020. 2. No evidence of thoracic lymphadenopathy. Tiny nodule right upper lobe is stable. CT ABDOMEN AND PELVIS: Previously noted hyperdensity in the dome of the right lobe of the liver on prior study is not appreciated on today's study. No liver lesions are seen. Gallbladder is unremarkable. There is no biliary duct dilatation. Pancreas and spleen are unremarkable. No adrenal mass is detected. Kidneys are unremarkable. Aorta is nonaneurysmal. Bowel loops are normal caliber. There is moderate stool in the colon. No definite omental caking or peritoneal implants are identified. There is no ascites in the abdomen. Trace ascites in the pelvis is noted. No definite central retroperitoneal or mesenteric lymphadenopathy is seen. No definite iliac or inguinal lymphadenopathy is identified. There is some mild presacral soft tissue thickening without discrete mass. This could conceivably be post-therapeutic. The bladder is unremarkable. Uterus is surgically absent. IMPRESSION: No definite findings to suggest metastatic disease. There is moderate stool in the colon. There may be post therapeutic changes in the pelvis. No other significant abnormality is detected. Dictated by: Dictated on workstation # [id number]
== END ==
LOC: RAD FS 13:07
PROVIDERS: ATTEND Internal Medicine Hematology & Oncology
DX: J90 Pleural effusion, not elsewhere classified (principal); Z85.43 Personal history of malignant neoplasm of ovary
CPT/HCPCS: 71260; 74177

== ENCOUNTER → 2021-08-30 | Outpatient (CLI) | payer MEDICARE ==
[~2021-08-30] MED LIST changes: +BARIUM SUSPENSION 2.1% (VANILLA SILQ) 450 ML PO SCH
--- NOTE | 2021-08-30 13:18 | Diagnostic Imaging Report ---
PROCEDURE: CT chest, abdomen, and pelvis with contrast. TECHNIQUE: Multiple contiguous axial images were obtained through the chest, abdomen, and pelvis after the administration of intravenous contrast. Auto Exposure Controls were utilized during the CT exam to meet ALARA standards for radiation dose reduction. DATE: August 30, 2021. INDICATION: 80-year-old female, history of ovarian cancer. COMPARISON: CT chest, abdomen, and pelvis May 11, 2021. FINDINGS: There is no identified pulmonary nodule. There is no lung mass. There is a moderate right and gczkj-ko-duhuwdfg left pleural effusion. There is mild adjacent compressive atelectasis. There is no identified pulmonary nodule or lung mass. There is no additional focal airspace consolidation. The heart is not enlarged. There is no pericardial effusion. There is no identified central pulmonary embolus. There is no identified abnormally enlarged noncalcified mediastinal, hilar, or axillary lymph node which meets CT size criteria for adenopathy. The liver is unremarkable in size and contour. There is no identified liver lesion. The main, right, and left portal veins are patent. The gallbladder is unremarkable. There is no intrahepatic or extrahepatic bile duct dilation. The main pancreatic duct is not abnormally dilated. Unremarkable appearance of the pancreatic parenchyma. The spleen is normal in size. The adrenal glands are unremarkable. Unremarkable appearance of the renal parenchyma. The urinary collecting systems are not distended. There is no identified renal or ureteral stone. The urinary bladder is underdistended and not well evaluated. There are sutures at the level of the rectosigmoid junction. The intestinal tract is not distended. There is no free intraperitoneal air. There is no identified focal drainable fluid collection. There is a small volume of free pelvic fluid. There are atherosclerotic calcifications. There is no identified abnormally enlarged lymph node in the abdomen or pelvis meeting CT size criteria for adenopathy. There is a retroaortic left renal vein. The uterus appears absent. There is no identified adnexal mass. There are multilevel degenerative changes of the spine. There is no identified bone lesion concerning for a bone metastasis. IMPRESSION: 1. No evidence of metastatic disease at the level of the chest, abdomen, or pelvis. 2. Moderate right and small to moderate left pleural effusion with adjacent mild compressive atelectasis. The right pleural effusion is essentially unchanged in size. The left pleural effusion is increased in size since May 11, 2021. 3. Small volume of free pelvic fluid. Dictated by: Dictated on workstation # [id number]
== END ==
LOC: RAD FS 09:33
PROVIDERS: ATTEND Internal Medicine Hematology & Oncology
DX: J90 Pleural effusion, not elsewhere classified (principal); J98.11 Atelectasis; C56.3 Malignant neoplasm of bilateral ovaries
CPT/HCPCS: 71260; 74177

== ENCOUNTER 2021-09-08 05:35 | Outpatient (CLI) | payer MEDICARE ==
[~2021-09-08] VITALS: Ht 157.5 cm; Wt 59.1 kg
[~2021-09-08 05:35] MED LIST changes: -BARIUM SUSPENSION 2.1% (VANILLA SILQ) 450 ML PO SCH; -CATHETER FLUSH 10 ML SYR IV PRN; -HOLD METFORMIN - RECEIVED CONTRAST 20 ML VIAL IV SCH; -IOHEXOL 350 MG/ML 100 ML (OMNIPAQUE 350) VIAL IV ONE; -NS 100 ML (IVPB) BAG IV ONE
[2021-09-08] MEDS ORDERED: PANT40TA2 PO (11:06)
[2021-09-08] MEDS ORDERED: AMLO2.5T4 PO (11:06)
[2021-09-08] MEDS ORDERED: CARV25TA PO (11:06)
[2021-09-09] MEDS ORDERED: ACHD5005 PO (12:44)
== END 2021-09-08 11:29 | disposition home or self-care (01) ==
LOC: PREOP 05:35
PROVIDERS: ATTEND Surgery
DX: Z01.818 Encounter for other preprocedural examination (principal)

== ENCOUNTER 2021-09-09 11:14 | Day surgery (SDC) | payer MEDICARE ==
[~2021-09-09] VITALS: Ht 157.5 cm; Wt 59.1 kg
[2021-09-09] VITALS (8 sets, daily range): BP systolic 149–189; BP diastolic 73–107
--- NOTE | 2021-09-09 06:53 | HISTORY AND PHYSICAL ---
DATE OF SERVICE: ATTENDING PRIMARY CARE PHYSICIAN: Dr. Caitie Olson. HISTORY: The patient is an 80-year-old female known to us. She was initially referred over to us for left abdominal mass identified on CT scan. She had also reported several months of worsening abdominal bloating as well as in the pelvic region. She did undergo an ultrasound, which did a show complex cystic and solid left ovary. There is also omental caking concerning for metastatic disease. She underwent a CT-guided needle biopsy on 05/30/2019, which did come back consistent with metastatic adenocarcinoma of gynecologic origin. We had placed a Groshong implantable catheter on 06/19/2019. This has been used for maintenance chemotherapy. She states that at some point the area became more red and she was placed on antibiotics. At this time, there does not appear to be any infection. However, due to a significant weight loss, the port appears to be at risk of impending erosion. PAST MEDICAL HISTORY: Metastatic ovarian cancer, hypertension, hypercholesterolemia, history of melanoma, degenerative joint disease. PAST SURGICAL HISTORY: Partial hysterectomy, right upper extremity wide excision and skin graft melanoma approximately 40 years ago. Placement of left subclavian Groshong catheter, 06/2019. ALLERGIES: No known drug allergies. MEDICATIONS: Lisinopril 40 mg daily, hydrochlorothiazide 25 mg daily, gabapentin at bedtime, Protonix 40 mg daily, atorvastatin 10 mg daily. SOCIAL HISTORY: Negative smoke. Rare alcohol. FAMILY HISTORY: Mother, non-Hodgkin's lymphoma at 88 years of age. Father, leukemia and myocardial infarction, age 72. VITAL SIGNS: Blood pressure 142/80, current weight 127.8 pounds at 5 feet 2 inches. REVIEW OF SYSTEMS: Well-nourished female, currently in no acute distress. She is not experiencing any shortness of breath or difficulty breathing. No chest pain, palpitations, diaphoresis. No nausea, vomiting, no diarrhea or constipation. No fever or chills with weight loss over the past two years. PHYSICAL EXAMINATION: CHEST: Clear. Good breath sounds bilaterally. HEART: Regular, no murmurs. EXTREMITIES: No lower extremity edema, negative Homans sign. HEENT: No scleral icterus. NECK: No cervical lymphadenopathy. ABDOMEN: Soft, nontender, nondistended. SKIN: Warm, dry with easily visible left subclavian Groshong implantable catheter with no surrounding redness or erythema as well as no fluctuance to indicate any active cellulitis or abscess. ASSESSMENT AND PLAN: An 80-year-old female with impending left subclavian Groshong catheter erosion. We will proceed with scheduling her for removal of this and placement of a right subclavian Groshong implantable catheter, selectively lower down where there was a thicker skin and subcutaneous tissue due to her significant weight loss from the chemotherapy. We will also add a low profile port. Job ID: [id number] DocumentID: [id number] Dictated Date: 09/06/2021 15:44:14 Store Operations Specialist Date: 09/06/2021 16:15:14 Dictated By: TUNDE GUEVARA MD
[~2021-09-09 11:14] MED LIST changes: +AMLO2.5T4 PO; +CARV25TA PO; +PANT40TA2 PO
--- OUTSIDE RECORDS SUMMARY | 2021-09-09 11:17 | XMS REPORT | Encounter Summary ---
Author Author [facility] Organization [facility] Address Unknown Phone Unavailable Care Team Providers Care Ship Design Teacher Name Role Phone Caitie Olson MD PCP Reason for Referral * Radiology Services (Routine) Referred By Contact Referred To Contact Status Reason Specialty Diagnoses / Procedures Boo Levin MD [address] [place] [address] New Request Diagnoses Malignant neoplasm of both ovaries P rocedures CT CHEST W CONTRAST Electronically signed by Boo Levin MD at * Radiology Services (Routine) Referred By Contact Referred To Contact Status Reason Specialty Diagnoses / Procedures Boo Levin MD [address] [place] [address] New Request Diagnoses Malignant neoplasm of both ovaries P rocedures CT ABD/PELV W CONTRAST Electronically signed by Boo Levin MD at Reason for Visit * Reason Comments Cancer Encounter Details Care Team Description Date Type Department Boo Levin MD [address] [place] [address] Carcinoma of ovary, unspecified laterali ty (HCC) (Primary Dx); Malignant neoplasm of left ovary (HCC); Malignant neoplasm of both ovaries 09/01/2021 Office Visit Oncology: [facility] [address] [place] [address]. [place] [address] Social History Date Tobacco Use Types Packs/Day Years Used Passive Smoke Exposure - Never Smoker Smokeless Tobacco: Never Used Comments Alcohol Use Standard Drinks/Week Never 0 (1 standard drink = 0.6 o z pure alcohol) Alcohol Habits Answer Date Recorded How often do you have a drink containing alcohol? Never 07/08/2020 How many drinks containing alcohol do you have on No t asked a typical day when you are drinking? How often do you have six or more drinks on one Not asked occasion? Comment: Not asked Sex Assigned at Date Recorded Female 07/29/2020 1:57 PM CDT Date Recorded COVID-19 Exposure Response 09/01/2021 12:05 PM CDT In the last month, have you been in contact with No / Unsure someone who was confirmed or suspected to have Coronavirus / COVID-19? documented as of this encounter Last Filed Vital Signs Reading Time Taken Comments Vital Sign 170/81 09/01/2021 1:04 PM CDT Blood Pressure 66 09/01/2021 1:04 PM CDT Pulse 36.7 C (98 F) 09/01/2021 1:04 PM CDT Temperature 18 09/01/2021 1:04 PM CDT Respiratory Rate 99% 09/01/2021 1:04 PM CDT Oxygen Saturation - - Inhaled Oxygen Concentration 57.4 kg (126 lb 9.6 oz) 09/01/2021 1:04 PM CDT Weight 156.2 cm (5' 1.5") 09/01/2021 1:04 PM CDT Height 23.54 09/01/2021 1:04 PM CDT Body Mass Index documented in this encounter Functional Status Date of Assessment Functional Status Response 06/09/2021 Does the patient have a hearing impairment: No 06/09/2021 Does the patient have a visual impairment: Yes 06/09/2021 Does the patient have impaired ambulation: No 06/09/2021 Does the patient have an activity of daily living No (ADL) impairment: 06/09/2021 Does the patient have an instrumental activity of No daily living (IADL) impairment: Date of Assessment Cognitive Status Response 06/09/2021 Does the patient have a cognitive impairment: No documented as of this encounter Ordered Prescriptions Start Date End Date Prescription Sig Dispensed Refills 09/01/2021 cephalexin (KEFLEX) 250 Take one 28 capsule 0 mg capsule capsule by mouth four times daily. documented in this encounter Progress Notes * Boo Levin MD - 09/01/2021 1:00 PM CDT Name: Briana Campos : 1940 AGE: 80 y.o. DATE OF SERVICE: 09/01/2021 Subjective: Reason for Visit: No chief complaint on file. Briana Campos is a 80 y.o. female. Cancer Staging No matching staging information was found for the patient. Onc Timeline Overview Note Briana Campos is a 79 y.o. female patient with recurrent ovarian cancer; she pre sents to the office today prior to starting chemotherapy with carboplatin and ge mzar. Carcinomatosis (HCC) (Resolved) 07/07/2020 Initial Diagnosis Carcinomatosis (HCC) Diagnosis & Reason for Visit: Peritoneal carcinomatosis Physician Info: Referring Physician: Dr. Ciera Vasquez Contact Name & Number: Janet @ [phone] PCP: Dr. Caitie Olson History of Present Illness: Ms Campos is a 79 yo GxPx, who was diagnosed with mullerian carcinomatosis in 2018. Patient had some complaints of abdominal bloating in mid-2018 and went to see he r PCP. A sono and CT scan were ordered; CT scan performed on 05/08/2019 showed l eft abdominal omental caking; a primary mass is not identified; mild free fluid in the pelvis. 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 She then started on Carboplatin and Taxol x 6 cycles, with the last cycle given in October 2019; she had a possible allergic reaction to the Carboplatin on her last Cycle with flushing, shortness of breath, and anxiety. Her CA 125 levels were initially e levated (203.6 on 06/11/2019), but normalized (17.8 on 10/16/2019) with chemothera py. After completing 6 cycles of therapy in 10/2019, no surgery and initiated observ ation. However there was noted to be a rise in her CA 125 (116.9 on 05/06/2020 and 185 o n 06/14/2020) has been increasing and she continues to have intermittent bloating. CT scan performed on 05/17/2020 was stable with a small hypodense lesion at the dome of the liver, which is unchanged. She had genetic testing done, results ar e pending. She is being referred to to see if she is a candidate for surgery . Clinically, she presents to discuss treatment options. PMH: Melanoma in right arm, PN; denies issues with her H/L/K/L/DM/Thyroid diseas e/TX/Stroke/seizure/asthma/COPD Surgical Hx Surgery/Year: resection of melanoma of right arm, hysterectomy in 1 980s due to fibroids - ovaries still intact Reproductive History Menstrual Hx LMP: ~1979 Having Periods: No Age at first period: 9 Hx Number of pregnancies: 3 Number of live births: 3 Age of first live : 21 Did you breastfeed: Yes If Yes, how long? 18 months with each child Oral Control: Yes Years: ~20 years Infertility Medication: No Year/Med Name: N/A Menopausal Hx Age of last period: 40s Hormone Replacement Therapy: Yes Years: unsure length of use, started when in her 50s - was on estro gen SH: Smoke: no Drink: no Drugs:no Genetics: Pending. FH: Mom-lymphoma Muncle: pancreatic Daughter and patient: melanoma 08/18/2020 Surgery Procedure(s) (LRB): RESECTION OVARIAN/ TUBAL/ PRIMARY PERITONEAL MALIGNANCY WITH BILATERAL SALPINGO- OOPHORECTOMY AND OMENTECTOMY (Bilateral) LOWER ANTERIOR RESECTION, MOBILIZATION OF SPLENIC FLEXURE Anesthesia Type: General Anesthesia Findings: Omental tumors. Tumor plaque on bladder peritoneum. Bilateral fallopia n tubes and ovaries densely adhered to the sigmoid colon requiring en bloc resec tion.. Miliary disease throughout the small bowel mesentery, not resected. Milia ry and treated disease on right diaphragm, not resected. 08/19/2020 Pathology Final Diagnosis: A. 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 B. Omentum, omentectomy: High grade serous carcinoma. C. Peritoneum and portion of round ligament, excision: High grade serous carcinoma. D. Bladder peritoneum, excision: High grade serous carcinoma. E. Perirectal tissue, excision: High grade serous carcinoma. F. Rectum, sigmoid, bilateral fallopian tubes and ovaries, low anterior resection and bilateral salpingo-oophorectomy: Rectosigmoid colon: Pericolonic adipose tissue, serosa, and muscularis propria involved by high grade serous carcinoma. Fallopian tube #1: Serosal involvement by high grade serous carcinoma. Ovary: #1: High grade serous carcinoma. 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 See checklist. Ovary #2: High grade serous carcinoma. G. Additional rectum, excision: Colonic tissue with no evidence of malignancy. Adenocarcinoma (epithelial) of ovary (HCC) 05/08/[address] scan performed showed left abdominal omental caking; a primary mass is not i dentified; mild free fluid in the pelvis. 04/2019 Pertinent History Patient had some complaints of abdominal bloating in mid-2018 and went to see h er PCP. A sono and CT scan were ordered. 05/30/[address] guided biopsy was performed on 05/30/2019 and pathology showed metastatic a denocarcinoma consistent with ovarian primary. 05/30/2019 Initial Diagnosis Adenocarcinoma (epithelial) of ovary (HCC) - 10/2019 Chemotherapy She then started on Carboplatin and Taxol x 6 cycles, with the last cycle given in October 2019; she had a possible allergic reaction to the Carboplatin on her last cycle with flushing, shortness of breath, and anxiety. 10/16/2019 Pertinent Labs Her CA 125 levels were initially elevated (203.6 on 06/11/2019), but normalized (17.8 on 10/16/2019) with chemotherapy. 05/17/[address] scan performed on 05/17/2020 was stable with a small hypodense lesion at the d ome of the liver, which is unchanged. 06/14/2020 Pertinent History Since completion of chemotherapy, her CA 125 (116.9 on 05/06/2020 and 185 on 06/14) has been increasing and she continues to have intermittent bloating. She had genetic testing done, results are pending. She is being referred to to see if she is a candidate for surgery. 08/18/2020 Surgery Tumor debulking with BSO, omentectomy per Dr. Carter and LAR with mobilization of splenic flexure per Dr. Andres. 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 The patient was initially diagnosed with ovarian cancer in 2018 and u nderwent treatment with Taxol carboplatinum x6. She was then followed and had e vidence of relapse and then was referred to Dr. Carter who on 08/18/2020 took th e patient to debulking surgery. She was not optimally debulked. The patient burgess s recovered slowly from surgery. She has had some wound issues. Her wound now is well-healed. She comes in to discuss the possibility of taking additional th erapy for her ovarian cancer. The patient tolerated her initial chemotherapy we ll except for what appeared to be a carboplatinum reaction with her last round o f Taxol carboplatinum in October 2019. Today she is doing well feeling well sh e is feels like she is back to close to her baseline. She denies any hemoptysis hematochezia melena no headache vision changes or neurologic changes appetite is good energy levels good. The patient is complaining of some vaginal itching and some dysuria. She had a course of antibiotics that she did not tolerate very well for her wound healing. She was given this by the wound doctor. She belie ves that this is why she has a vaginal yeast infection she is accompanied by her . She does not drink does not smoke and is retired. 11/25/2020 This is an 80-year-old female with relapsed ovarian cancer presenting prior to h er scheduled admission for carboplatin densensitization tomorrow. Patient report s doing well. She recently had an UTI treated by her PCP, her symptoms have reso lved. Additionally, she has been working with her PCP to control her BP. She was started on coreg in addition to her lisinopril and HCTZ. She has not had improv ement in her BP. She does endorse constipation since her surgery in August. She has tried Citrucel without relief. Additionally, patient also reports nausea, d ecreased appetite and mouth dryness at night. She has residual feet numbness fro m prior taxol therapy. She denies falls. 12/16/2020 This is an 80-year-old female with relapsed ovarian cancer who comes in for her day 1 of cycle 2 of Gemzar carboplatinum and Avastin chemotherapy. Her first ro und of therapy she received as an inpatient at [facility] for desensitizat ion. She received day 8 therapy under the direction of Dr. Geoffrey linares in [facility]. She tolerated the chemotherapy generally well except for increas ing fatigue. She also had some swelling of her feet. She has had some dyspnea on exertion. O2 sat today resting was 97% which is unchanged from her previous. Her blood pressure is good today at 137/72. She denies any chest pain orthopn ea or PND-like symptoms no asymmetric swelling of her feet. 01/27/2021 This is an 80-year-old female with relapsed ovarian cancer comes in for day 1 of cycle 4 of her Gemzar carboplatinum and Avastin. Her last round of chemotherapy went well. Her blood pressure is a little bit high today but has been running much better at home. The patient is receiving Gemzar on day 8 of each cycle at the direction of Dr. Geoffrey linares in [facility]. She is receiving her d ay 1 therapy here because of desensitization. The patient's CA-125 continues to drop and was down to 521 on 01/06/2021. Overall she seems to be tolerating ther apy well. She states that she is actually feeling better today than she had in some time. She denies any nausea and vomiting no diarrhea constipation. No abd ominal pain bloating constipation or diarrhea. No pelvic pain vaginal discharge or bleeding. 03/10/2021 This is an 80-year-old female comes in for follow-up of her relapsed ovarian can cer. The patient is here for day 1 of cycle 6 of Gemzar carboplatinum and Avast in chemotherapy. The patient continues to tolerate her chemotherapy well. She has had some days where she has not felt well and her blood pressure has been el evated. Her systolic blood pressure has gotten into the 170s. Today her blood pressure is under good control. She is feeling well. She has not had any incre asing amount of neuropathy symptoms. She is denies any nausea and vomiting. St ates that she is is feeling well today. She has been getting day 8 therapy in [facility] under the direction of Dr. Hale. Her Ca1 25 continues to d rop and was 279 on 02/17/2021. CBC and chemistry profile are adequate for treatme nt today. 03/31/2021 This is an 80-year-old female comes in for follow-up of her relapsed ovarian can cer. The patient is here for day 1 of cycle 7 of Gemzar carboplatinum Avastin. She continues to do extraordinarily well with chemotherapy with just several da ys of fatigue after each dose of chemotherapy but she quickly recovers. She has not had any significant nausea and vomiting. She does report difficulty sleepi ng and swelling of her feet likely associated with her steroid. She has been ta belen dexamethasone on days 2 3 and 4 for nausea prevention. She recently comple radha a course of Diflucan and has refilled it and started it again as she continu es to have some dysuria. Otherwise she is doing quite well. The patient's last Ca1 25 continues to drop and was down to 189 3 weeks ago. 04/21/2021 This is an 80-year-old female comes in for follow-up of her relapsed ovarian can cer. Patient is here for day 1 of cycle 6 8 of Gemzar carboplatinum Avastin. S he continues to handle chemotherapy extraordinarily well. We will just about 67 days of fairly significant fatigue after her day 8 therapy. She feels good for about a week prior to the treatments and feels pretty good for 2 or 3 days after the initial day 1 treatment. She is not having any nausea vomiting denies any hemoptysis hematochezia melena no headache vision changes or neurologic changes. Appetite is good energy levels good. Her weight is stable. Counts look good today she continues with Udenyca support. 05/19/2021 Briana Campos is an 80-year-old female with relapsed ovarian cancer. She is stat us post suboptimal debulking surgery with Dr. Carter on 08/18/2020. She is now recovered well enough to consider chemotherapy. The patient had next generation sequencing which showed no evidence of microsatellite instability no evidence of BRCA somatically or BRCA and germline. Patient has now completed 8 cycles of G emzar carboplatinum and Avastin chemotherapy. Her most recent CT scan showed a l ittle bit of pleural effusion which is likely related to chemotherapy administra tion, but overall looks pretty good. She is feeling well with no concerns or co mplaints. Her CA-125 is 96 today. She is here with her . 06/09/2021 Briana Campos is an 80-year-old female with relapsed ovarian cancer. She is stat us post suboptimal debulking surgery with Dr. Carter on 08/18/2020. She presents today with her in clinic. She states that since last treatment with sin gle-agent Avastin, she reports having much more energy and notes that "she feels much more like herself." She does report having some oral bleeding with brushing her teeth and thinks she may have some bleeding in her throat. She also reports having some slight rash on her face. She additionally reports having hoarse vo ice for past few weeks. She finally reports having some numbness in her bilatera l feet that has not acutely worsened. She denies having any recent fevers, chill s, chest pain, SOB, nausea, vomiting, or abdominal pain. She denies having any h eadaches or vision changes. 09/01/2021 Currently on 4 blood pressure medications- carvedilol, lisinopril, hydrochlorath izide, and amlodipine. Still, however, she says her blood pressure is "all over the place" systolic goes from 135 to 180. She states she never knows what her bl ood pressure is going to be at any given point because it's been so labile. Her port was not accessed as there's an infection concern- the site is erythematous and there is a small scab overlying, but it's not tender, no fluctuance, and no drainage. She has an IV in place for her treatment. She has stable neuropathy in her feet. Walks and evenings aggravate her symptoms . Goes for walks- about 4 blocks at a time, has had a gradual decline in the dista nce over the past 3 years, but she thinks her endurance is slightly worse with t he Avastin. Notes that she does have foamy urine. Also thinks she has pinworms, bought treat ment for both her and her . Review of Systems Constitutional: Negative for fatigue, fever and unexpected weight change. HENT: Positive for postnasal drip and voice change. Negative for mouth sores and trouble swallowing. Eyes: Positive for pain. Negative for photophobia and visual disturbance. Respiratory: Negative for cough, chest tightness, shortness of breath and wheezi ng. Cardiovascular: Negative for chest pain and leg swelling. Gastrointestinal: Positive for nausea. Negative for abdominal distention, abdomi nal pain, blood in stool, constipation, diarrhea and vomiting. Genitourinary: Negative for difficulty urinating, dysuria, frequency and hematur ia. Musculoskeletal: Negative for back pain and neck pain. Skin: Negative for rash. Neurological: Positive for numbness. Negative for dizziness, seizures, weakness and headaches. Hematological: Negative for adenopathy. Bruises/bleeds easily. Psychiatric/Behavioral: Negative for dysphoric mood. Objective: acetaminophen (TYLENOL) 500 mg tablet Take 1,000 mg by mouth at bedtime ez y. Max of 4,000 mg of acetaminophen in 24 hours. ALPRAZolam (XANAX) 0.5 mg tablet Take 0.25 mg by mouth at bedtime as needed for Sleep or Anxiety. atorvastatin (LIPITOR) 10 mg tablet Take 10 mg by mouth daily. azelaic acid (FINACEA) 15 % gel topical gel Apply 1 g topically to affected area twice daily. carvediloL (COREG) 12.5 mg tablet Take 12.5 mg by mouth twice daily. cephalexin (KEFLEX) 250 mg capsule Take one capsule by mouth four times ez y. fluconazole (DIFLUCAN) 200 mg tablet Take one tablet by mouth daily. gabapentin (NEURONTIN) 300 mg capsule Take 300 mg by mouth three times daily . hydroCHLOROthiazide (HYDRODIURIL) 25 mg tablet Take 12.5 mg by mouth daily. lactobacillus rhamnosus (GG) (CULTURELLE) 10 billion cell cap Take 1 capsule by mouth twice daily with meals. lisinopriL (ZESTRIL) 40 mg tablet Take 40 mg by mouth daily. meloxicam (MOBIC) 15 mg tablet Take 15 mg by mouth daily. ondansetron (ZOFRAN) 8 mg tablet Take one tablet by mouth every 8 hours as n eeded (nausea and vomiting). pantoprazole DR (PROTONIX) 40 mg tablet Take 40 mg by mouth daily. prochlorperazine maleate (COMPAZINE) 10 mg tablet Take one tablet by mouth e very 6 hours as needed for Nausea or Vomiting. First choice for nausea for the f irst 3 days after chemotherapy Pain Addressed: N/A Patient Evaluated for a Clinical Trial: Patient not eligible for a treatment tri al (including not needing treatment, needs palliative care, in remission). Eastern Cooperative Oncology Group performance status is 1, Restricted in physic ally strenuous activity but ambulatory and able to carry out work of a light or sedentary nature, e.g., light house work, office work. Physical Exam Vitals reviewed. Constitutional: Appearance: Normal appearance. HENT: Head: Normocephalic. Nose: Nose normal. Mouth/Throat: Mouth: Mucous membranes are moist. Pharynx: Oropharynx is clear. No oropharyngeal exudate. Eyes: Extraocular Movements: Extraocular movements intact. Conjunctiva/sclera: Conjunctivae normal. Pupils: Pupils are equal, round, and reactive to light. Cardiovascular: Rate and Rhythm: Normal rate and regular rhythm. Pulses: Normal pulses. Heart sounds: Normal heart sounds. No murmur heard. Pulmonary: Effort: Pulmonary effort is normal. No respiratory distress. Breath sounds: Normal breath sounds. No wheezing. Abdominal: General: Abdomen is flat. Bowel sounds are normal. Palpations: Abdomen is soft. Skin: General: Skin is warm. Neurological: Mental Status: She is alert and oriented to person, place, and time. Psychiatric: Mood and Affect: Mood normal. Behavior: Behavior normal. CBC w diff Lab Results Component Value Date/Time WBC 6.3 06/09/2021 12:12 PM RBC 2.89 (L) 06/09/2021 12:12 PM HGB 9.3 (L) 06/09/2021 12:12 PM HCT 28.1 (L) 06/09/2021 12:12 PM MCV 97.2 06/09/2021 12:12 PM MCH 32.1 06/09/2021 12:12 PM MCHC 33.0 06/09/2021 12:12 PM RDW 15.9 (H) 06/09/2021 12:12 PM PLTCT 227 06/09/2021 12:12 PM MPV 7.1 06/09/2021 12:12 PM Lab Results Component Value Date/Time NEUT 43 06/09/2021 12:12 PM ANC 2.70 06/09/2021 12:12 PM LYMA 43 06/09/2021 12:12 PM ALC 2.70 06/09/2021 12:12 PM ERIC 10 06/09/2021 12:12 PM AMC 0.60 06/09/2021 12:12 PM EOSA 3 06/09/2021 12:12 PM AEC 0.20 06/09/2021 12:12 PM BASA 1 06/09/2021 12:12 PM ABC 0.10 06/09/2021 12:12 PM Comprehensive Metabolic Profile Lab Results Component Value Date/Time NA 138 06/09/2021 12:12 PM K 4.6 06/09/2021 12:12 PM CL 105 06/09/2021 12:12 PM CO2 28 06/09/2021 12:12 PM GAP 5 06/09/2021 12:12 PM BUN 21 06/09/2021 12:12 PM CR 0.98 06/09/2021 12:12 PM GLU 96 06/09/2021 12:12 PM Lab Results Component Value Date/Time CA 9.4 06/09/2021 12:12 PM PO4 3.0 08/20/2020 04:25 AM ALBUMIN 3.7 06/09/2021 12:12 PM TOTPROT 6.0 06/09/2021 12:12 PM ALKPHOS 72 06/09/2021 12:12 PM AST 16 06/09/2021 12:12 PM ALT 8 06/09/2021 12:12 PM TOTBILI 0.3 06/09/2021 12:12 PM GFR 54 (L) 06/09/2021 12:12 PM GFRAA >60 06/09/2021 12:12 PM Lab Results Component Value Date CA125 91 (H) 06/09/2021 Assessment and Plan: ICD-9-CM ICD-10-CM 1. Carcinoma of ovary, unspecified laterality (HCC) 183.0 C56.9 2. Malignant neoplasm of left ovary (HCC) 183.0 C56.2 3. Malignant neoplasm of both ovaries 183.0 C56.3 Briana Campos is an 80-year-old female with relapsed ovarian cancer. She is stat us post suboptimal debulking surgery with Dr. Carter on 08/18/2020. The patient had next generation sequencing through [facility] which showed no evidence of microsatellite instability no evidence of BRCA somatically or BRCA and germli ne. Patient has now completed 8 cycles of Gemzar carboplatinum and Avastin chemo therapy. Today, her CA-125 is 91 which is slightly improved from 96 on 05/19/21. S cans are repeated in August 2021 and there is no evidence of disease progressio n. Stable pleural effusions bilaterally, and no evidence of disease. Urinalysis with persistent slight proteinuria, and continuing to monitor as it's not gettin g worse. Blood pressure fluctuates despite multiple blood pressure medications. Previously have discussed possible addition of olaparib to avastin. Explained th at previous genomic and genetic testing of her malignancy showed she did not hav e actionable mutation such as BRCA -1/2 that would show significant benefit with PARP inhibitor. Also, her advanced age and current anemia would make tolerance of a PAPR inhibitor. Therefore, will hold off on this therapy at this time and c ontinue maintenance therapy with avastin. Since Ms. Campos lives in [place], [place], will plan for next Avastin treatmets to be given with Dr. Vasquez in [place], [place] (will reach out to Dr. Vasquez's clinic to held arrange). Plan to f consuelolow-up with Dr. Vasquez q [address] Levin in [address] imaging and labs. We will continue to monitor her Ca125. - Antibiotics for port today- Keflex x 7 days. - OK to take the OTC medication she bought for pinworms. - Will follow up CA 125 value, however scans are reassuring today, and without e vidence of progression on scans will not change therapy. - Labs with RTC- UA, CA 125, CBC, and CMP. - RTC in [address] scans of CAP, and Avastin dose. Interim Avastin doses will be closer to home with Dr. Vasquez in [facility]. No changes to the plan at this time. Patient expressed understanding of the above-mentioned plan and asked multiple q uestions that were answered in detail. Patient's medications were reviewed and r emain unchanged. Patient seen and plan of care fully discussed with Dr. Levin. Jovita Lee MD PGY 5 hematology oncology fellow Pager [phone] ATTESTATION I personally interviewed and examined the patient. I have reviewed the history, physical, impression and plan outlined by the fellow. The patient presents with (HPI) relapsed ovarian cancer, patient has been receiv ing Avastin maintenance in [place]. Her Ca1 twenty-five has been increasing but recent CT scans showed no evidence of progressive disease. She is been rece iving her care in [place] by Dr. Hale. On examination there is no evidence of progressive disease Port-A-Cath is red, t here is a small eschar but no drainage My impression is relapsed ovarian cancer on Avastin maintenance. She appears to have a local infection around her Port-A-Cath My plan is continue Avastin maintenance for the next 12 weeks. Treat her cathet er related infection with Keflex x7 days. When she returns in 12 weeks we will repeat her CT scans. If she becomes more symptomatic Dr. Hale can consider repeating CT scans on a shorter interval if he deems necessary. Staff name: Boo Levin MD Date: 09/02/2021 documented in this encounter Plan of Treatment Order Schedule Name Type Priority Associated Diag noses Expected: 11/21/2021 (Approximate), Expi res: 09/01/2022 CT ABD/PELV W CONTRAST Imaging Routine Maligna nt neoplasm of both ovaries Expected: 11/21/2021 (Approximate), Expi res: 09/01/2022 CT CHEST W CONTRAST Imaging Routine Malignant neoplasm of both ovaries Expected: 11/24/2021, Expires: CBC AND DIFF Lab Routine Malignant neopl asm of both ovaries Expected: 11/24/2021 (Approximate), Expi res: 03/02/2023 COMPREHENSIVE METABOLIC Lab Routine Malign ant neoplasm of PANEL both ovaries documented as of this encounter Goals Goal Patient Associated Recent Progress Patient-Stat Aut hor Goal Type Problems ed? Recover from illness Hospital No Chato Rodriguez RN Note: Resume normal activities documented as of this encounter Visit Diagnoses Diagnosis Carcinoma of ovary, unspecified lateral ity (HCC) - Primary Malignant neoplasm of left ovary (HCC) Malignant neoplasm of ovary Malignant neoplasm of both ovaries Malignant neoplasm of ovary documented in this encounter Additional Health Concerns Assessment Noted Time A fall risk assessment has been completed for the pat ient 09/01/2021 1:04 PM CDT documented as of this encounter
--- OUTSIDE RECORDS SUMMARY | 2021-09-09 11:17 | XMS REPORT | Encounter Summary ---
Author Author [facility] Organization [facility] Address Unknown Phone Unavailable Care Team Providers Care Electric Refrigerator Servicer Name Role Phone Caitie Olson MD PCP Encounter Details Care Team Description Date Type Department 09/01/2021 Travel Social History Date Tobacco Use Types Packs/Day [...] / COVID-19? documented as of this encounter Functional Status Date of Assessment [...] impairment: No documented as of this encounter Plan of Treatment Not on filedocumented as of this encounter Goals Goal Patient Associated Recent Progress Patient-Stat Aut hor Goal Type Problems ed? Recover from illness Hospital No Chato Rodriguez, RN Note: Resume normal activities documented as of this encounter Visit Diagnoses Not on filedocumented in this encounter Additional Health Concerns Assessment Noted Time A fall risk assessment has been completed for the pat ient 09/01/2021 1:04 PM CDT documented as of this encounter
--- OUTSIDE RECORDS SUMMARY | 2021-09-09 11:17 | XMS REPORT | Clinical Summary ---
Author Author [facility] Organization [facility] Address Unknown Phone Unavailable Care Team Providers Care Checkerer Hand Name Role Phone Caitie Olson MD PCP Source Comments Some departments are not documenting in the electronic medical record. If you d o not see the information that you expected, contact Release of Information in [facility] [employer] Information Management department at [phone] for further assistan ce in locating additional records.[facility] Allergies Comments Active Allergy Reactions Severity Noted Date Tachycardia - reports flushing, shortness of breath, and anxiety during 6th lifetime infusion at OSH in 10/2019 Carboplatin SEE COMMENTS Low 07/08/2020 Oxycodone NAUSEA ONLY Low 08/12/2020 Tramadol NAUSEA ONLY Low 08/12/2020 Medications End Date Status Medication Sig Dispensed Refills Start Date Active atorvastatin (LIPITOR) 10 Take 10 mg by 0 201 mg tablet mouth daily. [address] Take 40 mg by 0 (PROTONIX) 40 mg tablet mouth daily. Active ALPRAZolam (XANAX) 0.5 mg Take 0.25 mg 0 tablet by mouth at bedtime as needed for Sleep or Anxiety. Active meloxicam (MOBIC) 15 mg Take 15 mg by 0 tablet mouth daily. 0 Active lisinopriL (ZESTRIL) 40 Take 40 mg by 0 mg tablet mouth daily. 0 Active hydroCHLOROthiazide Take 12.5 mg 0 (HYDRODIURIL) 25 mg by mouth 0 tablet daily. Active ondansetron (ZOFRAN) 8 mg Take one 30 tablet 3 tabletIndications: tablet by 0 Malignant neoplasm of mouth every 8 ovary, unspecified hours as laterality (HCC) needed (nausea and vomiting). Active prochlorperazine maleate Take one 30 tablet 3 1 (COMPAZINE) 10 mg tablet by 0 tabletIndications: mouth every 6 Malignant neoplasm of hours as ovary, unspecified needed for laterality (HCC) Nausea or Vomiting. First choice for nausea for the first 3 days after chemotherapy Active carvediloL (COREG) 12.5 Take 12.5 mg 0 mg tablet by mouth 0 twice daily. Active azelaic acid (FINACEA) 15 Apply 1 g 0 % gel topical gel topically to 0 affected area twice daily. Active gabapentin (NEURONTIN) Take 300 mg 0 02 300 mg capsule by mouth 0 three times daily. Active acetaminophen (TYLENOL) Take 1,000 mg 0 500 mg tablet by mouth at bedtime daily. Max of 4,000 mg of acetaminophen in 24 hours. Active lactobacillus rhamnosus Take 1 0 (GG) (CULTURELLE) 10 capsule by billion cell cap mouth twice daily with meals. Active fluconazole (DIFLUCAN) Take one 5 tablet 1 200 mg tablet tablet by 1 mouth daily. Active cephalexin (KEFLEX) 250 Take one 28 capsule 0 mg capsule capsule by 1 mouth four times daily. 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 Diagnosis & Reason for Visit: Peritone al carcinomatosis Physician Info: Referring Physician: Dr. Ciera gillespie Contact Name & Number: Janet @ PCP: Dr. Caitie Olson History of Present Illness: Ms Campos is a 79 yo GxPx, who was diag nosed with mullerian carcinomatosis in 04/2019. Patient had some complaints of abdomina l bloating in mid-2018 and went to see her PCP. A sono and CT scan were o rdered; CT scan performed on 05/08/2019 showed left abdominal omental caking; a primary mass is not identified; mild free fluid in the pelv is. A CT guided biopsy was performed on 05/30/2019 and pathology sh owed metastatic adenocarcinoma consistent with ovarian primary. She t hen started on Carboplatin and Taxol x 6 cycles, with the last cycle given i n October 2019; she had a possible allergic reaction to the Carboplatin on her last Cycle with flushing, shortness of breath, and anxiety. Her CA 125 levels were initially elevated (203.6 on 06/11/2019), but norm alized (17.8 on 10/16/2019) with chemotherapy. After completing 6 cycles of therapy in 10/2019, no surgery and initiated observation. However there was noted to be a rise in her CA 125 (116.9 on 05/06/2020 and 185 on 06/14/2020) has been increasing an d she continues to have intermittent bloating. CT scan performed on 0 was stable with a small hypodense lesion at the dome of the liver, which is unchanged. She had genetic testing done, results are pending. She is being referred to [facility] to see if she is a candidate for surgery. Clinically, she presents to discuss magaly atment options. PMH: Melanoma in right arm, PN; denies issues with her H/L/K/L/DM/Thyroid disease/ID/Stroke/seizure/asthma/COPD Surgical Hx Surgery/Year: resection of melanoma of right arm, hysterectomy in due to fibroids - ovaries stil l intact Reproductive History Menstrual Hx LMP: ~1979 Having Periods: No Age at first period: 9 Hx Number of pregnancies: 3 Number of live births: 3 Age of first live : 21 Did you breastfeed: Yes If Yes, how long? 18 months with each c hild Oral Control: Yes Years: ~20 years Infertility Medication: No Year/Med Name: N/A Menopausal Hx Age of last period: 40s Hormone Replacement Therapy: Yes Years: unsure length of use, started wh en in her 50s - was on estrogen SH: Smoke: no Drink: no Drugs:no Genetics: Pending. FH: Mom-lymphoma Muncle: pancreatic Daughter and patient: melanoma Encounters Care Team Description Date Type Specialty Boo Levin MD Appointment Request 09/05/2021 Telephone Oncology Boo Levin MD 09/01/2021 Hospital Oncology Encounter Boo Levin MD Carcinoma of ovary, unspecified laterali ty (HCC) (Primary Dx); Malignant neoplasm of left ovary (HCC); Malignant neoplasm of both ovaries 09/01/2021 Office Visit Oncology Boo Levin MD Malignant neoplasm of ovary, unspecified laterality (HCC) (Primary Dx) 09/01/2021 Nurse Only Oncology 09/01/2021 Travel Moon Chapman RN Malignant neoplasm of both ovaries 08/30/2021 Orders Only Oncology Breanna Gallagher, PHARMD 08/30/2021 Orders Only Oncology Boo Levin MD 08/29/2021 Orders Only Oncology Breanna Gallagher, PHARMD 08/29/2021 Orders Only Oncology Boo Levin MD 06/09/2021 Hospital Oncology Encounter Boo Levin MD Malignant neoplasm of both ovaries (Prim lyn Dx); Carcinoma of left ovary (HCC) 06/09/2021 Office Visit Oncology Boo Levin MD 06/09/2021 Hospital Lab Encounter 06/09/2021 Travel from Last 3 Months Immunizations Name Administration Dates Next Due COVID-19 (MODERNA), mRNA 12/21/2020 vacc, 100 mcg/0.5 mL (PF) Flu Vaccine =>3 YO 08/05/2020 (Historical) Surgical History Surgery Date Site/Laterality Comments HX HYSTERECTOMY COLONOSCOPY SKIN CANCER EXCISION Right arm CATARACT REMOVAL TUMOR RESECTION 08/18/2020 Bilateral RESECTION OVAR CORTES/ TUBAL/ PRIMARY PERITONEAL MALIGNANCY WITH BILATERAL SALPINGO-OOPH ORECTOMY AND OMENTECTOMY performed by Perez Carter MD at [facility] OR COLECTOMY 08/18/2020 N/A LOWER ANTERIOR RESECTION, MOBILIZATION OF SPLENIC FLEXURE performed by Jensen Andres DO at [facility] OR Medical History Medical History Date Comments Ovarian cancer (HCC) Cancer of skin Arthritis Hypertension History of chemotherapy 10/2019 GERD (gastroesophageal reflux disease) Hyperlipidemia Iritis Anxiety Family History Medical History Relation Name Comments Cancer Father Heart Disease Father High Cholesterol Father Cancer Maternal Aunt Heart Disease Maternal Grandfather Unknown to Patient Maternal Grandmother Cancer Maternal Uncle Unknown to Patient Maternal Uncle Cancer Mother Unknown to Patient Other Unknown to Patient Paternal Aunt Unknown to Patient Paternal Grandfather Unknown to Patient Paternal Grandmother Unknown to Patient Paternal Uncle Relation Name Status Comments Father Maternal Aunt Maternal Grandfather Maternal Grandmother Maternal Uncle Mother Other Paternal Aunt Paternal Grandfather Paternal Grandmother Paternal Uncle Social History Date Tobacco Use Types Packs/Day [...] or suspected to have Coronavirus / COVID-19? Last Filed Vital Signs Reading Time Taken Comments Vital Sign 178/66 09/01/2021 2:46 PM CDT Blood Pressure 66 09/01/2021 1:04 [...] 09/01/2021 1:04 PM CDT Body Mass Index Plan of Treatment Health Maintenance Due Date Last Done Comments MEDICARE ANNUAL WELLNESS 1940 VISIT DTAP/TDAP VACCINES (1 - 1957 Tdap) PHYSICAL (COMPREHENSIVE) 1957 EXAM OSTEOPOROSIS 2004 SCREENING/MONITORING PNEUMONIA (PPSV23) 2004 VACCINE (1 of 1 - PPSV23) INFLUENZA VACCINE 06/12/2021 08/05/2020, 07/21/2020 SHINGLES RECOMBINANT Completed 06/13/2019, VACCINE 10/15/2018 COVID-19 VACCINE Completed 07/04/2021, 01/18/2021, 12/21/2020 Goals Goal Patient Associated Recent Progress Patient-Stat Aut hor Goal Type Problems ed? Recover from illness [facility] No Chato Rodriguez, RN Note: Resume normal activities Procedures Comments Procedure Name Priority Date/Time Associated Diag nosis HC URINE MACRO CCC Routine 09/01/2021 Malignant n eoplasm of 12:35 PM CDT ovary, unspecified laterality (HCC) HC CA 125 Routine 09/01/2021 Malignant neopl asm of 12:35 PM CDT ovary, unspecified laterality (HCC) CT ABD/PELV W CONTRAST Routine 08/30/2021 Maligna nt neoplasm of both ovaries CT CHEST W CONTRAST Routine 08/30/2021 Malignant neoplasm of both ovaries HC URINE MACRO CCC Routine 06/09/2021 Malignant n eoplasm of 12:15 PM CDT ovary, unspecified laterality (HCC) HC CBC W/ AUTOMATED DIFF Routine 06/09/2021 Malig nant neoplasm of 12:12 PM CDT left ovary (HCC) HC COMPREHENSIVE Routine 06/09/2021 Malignant gil plasm of METABOLIC PANEL 12:12 PM CDT left ovary (HCC) HC CA 125 Routine 06/09/2021 Malignant neopl asm of 12:12 PM CDT ovary, unspecified laterality (HCC) from Last 3 Months Results * URINALYSIS DIPSTICK (09/01/2021 12:35 PM CDT) Only the most recent of 2 results within the time period is included. Color,UA YELLOW [facility] Turbidity,UA CLEAR CLEAR-CLEAR [facility] Specific 1.015 1.003 - 1.035 [facility] Brick-Urine pH,UA 5.5 5.0 - 8.0 [facility] Protein,UA 1+ (A) NEG-NEG [facility] Glucose,UA NEG NEG-NEG [facility] Ketones,UA NEG NEG-NEG [facility] Bilirubin,UA NEG NEG-NEG [facility] Blood,UA TRACE (A) NEG-NEG [facility] Urobilinogen,UA NORMAL NORM-NORMAL [facility] Nitrite,UA NEG NEG-NEG [facility] Leukocytes,UA 2+ (A) NEG-NEG [facility] Specimen Urine - Urine Performing Organization Address City/State/ZIP Code P davi Number [facility] [address] [place] [address] * CA125 (09/01/2021 12:35 PM CDT) Only the most recent of 2 results within the time period is included. CA-125 349 (H) <35 U/ml [facility] Specimen Blood Performing Organization Address City/State/ZIP Code P davi Number [facility] [address] [place] [address] * CT ABD/PELV W CONTRAST (08/30/2021) Narrative Performed At This result has an attachment that is n ot available. Performing Organization Address City/State/ZIP Code P davi Number [facility] * CT CHEST W CONTRAST (08/30/2021) Narrative Performed At This result has an attachment that is n ot available. Performing Organization Address City/State/ZIP Code P davi Number [facility] * CBC AND DIFF (06/09/2021 12:12 PM CDT) White Blood 6.3 4.5 - 11.0 K/UL [facility] Cells RBC 2.89 (L) 4.0 - 5.0 M/UL [facility] Hemoglobin 9.3 (L) 12.0 - 15.0 GM/DL [facility] Hematocrit 28.1 (L) 36 - 45 % [facility] MCV 97.2 80 - 100 FL [facility] MCH 32.1 26 - 34 PG [facility] MCHC 33.0 32.0 - 36.0 G/DL [facility] RDW 15.9 (H) 11 - 15 % [facility] Platelet Count 227 150 - 400 K/UL [facility] MPV 7.1 7 - 11 FL [facility] Neutrophils 43 41 - 77 % [facility] Lymphocytes 43 24 - 44 % [facility] Monocytes 10 4 - 12 % [facility] Eosinophils 3 0 - 5 % [facility] Basophils 1 0 - 2 % [facility] Absolute 2.70 1.8 - 7.0 K/UL [facility] Neutrophil Count Absolute Lymph 2.70 1.0 - 4.8 K/UL [facility] Count Absolute 0.60 0 - 0.80 K/UL [facility] Monocyte Count Absolute 0.20 0 - 0.45 K/UL [facility] Eosinophil Count Absolute 0.10 0 - 0.20 K/UL [facility] Basophil Count Specimen Blood Performing Organization Address [facility] P davi Number [facility] [address] [place] [id number] * COMPREHENSIVE METABOLIC PANEL (06/09/2021 12:12 PM CDT) [facility] Sodium 138 137 - 147 MMOL/L [facility] Potassium 4.6 3.5 - 5.1 MMOL/L [facility] Chloride 105 98 - 110 MMOL/L [facility] Glucose 96 70 - 100 MG/DL [facility] Blood Urea 21 7 - 25 MG/DL [facility] Nitrogen Creatinine 0.98 0.4 - 1.00 MG/DL [facility] Calcium 9.4 8.5 - 10.6 MG/DL [facility] Total Protein 6.0 6.0 - 8.0 G/DL [facility] Total Bilirubin 0.3 0.3 - 1.2 MG/DL [facility] Albumin 3.7 3.5 - 5.0 G/DL [facility] Alk Phosphatase 72 25 - 110 U/L [facility] AST (SGOT) 16 7 - 40 U/L [facility] CO2 28 21 - 30 MMOL/L [facility] ALT (SGPT) 8 7 - 56 U/L [facility] Anion Gap 5 3 - 12 [facility] eGFR Non 54 (L) >60 mL/min [facility] Comment: Indian The eGFR is not validated f or use in drug dosing adjustments. Continue to use estimated creatinine clearance per dosing reference text. Please contact the Clinical Pharmacist for questions. eGFR >60 >60 mL/min [facility] Indian Comment: The eGFR is not validated for use in drug dosing adjustments. Continue to use estimated creatinine clearance per dosing reference text. Please contact the Clinical Pharmacist for questions. Specimen Performing Organization Address [facility] P davi Number [facility] [address] [place] [address] from Last 3 Months Insurance Type Payer Benefit Subscriber ID Effective Phone Address Plan / Dates Group Medicare AETNA MEDICARE AETNA [id number] [id number] MEDICARE resent PPO [phone] Advance Directives Patient Sports Clerk Explanation Type Date Recorded Advance Directive/DPOA Date Inactivated Comments Code Status Date Activated 11/27/2020 11:26 AM Full Code 11/26/2020 8:01 AM Provider has discussed Code Status No, more discussi on w/Patient or Family? needed 08/21/2020 6:16 PM Full Code 08/18/2020 7:54 PM Provider has discussed Code Status No, more discussi on w/Patient or Family? needed
--- OUTSIDE RECORDS SUMMARY | 2021-09-09 11:17 | XMS REPORT | Encounter Summary ---
Author Author [facility] Organization [facility] Address Unknown Phone Unavailable Care Team Providers Care Social Welfare Research Worker Name Role Phone Caitie Olson MD PCP Encounter Details Care Team Description Date Type Department Breanna Gallagher, JAZZ 08/29/2021 Orders Only Oncology: [address] [place] [address] Social History Date Tobacco Use Types Packs/Day [...] Date Recorded Female 07/29/2020 1:57 PM CDT documented as of this encounter Functional Status [...] has been completed for the pat ient 06/09/2021 12:48 PM CDT documented as of this encounter
--- OUTSIDE RECORDS SUMMARY | 2021-09-09 11:17 | XMS REPORT | Encounter Summary ---
Author Author [facility] Organization [facility] Address Unknown Phone Unavailable Care Team Providers Care Wedding Decorator Name Role Phone Caitie Olson MD PCP Reason for Visit * Reason Onset Date Comments Appointment Request 09/05/2021 Encounter Details Care Team Description Date Type Department Boo Levin MD [address] [place] [address] [phone] Appointment Request 09/05/2021 Telephone Oncology: [address] [phone] Social History Date Tobacco Use Types Packs/Day [...] impairment: No documented as of this encounter Miscellaneous Notes * Telephone Encounter - Subha Otoole - 09/05/2021 11:26 AM CDT Called patient and scheduled 3 month follow up with Dr. Levin. Patient will complete CT scan locally prior to appointment. documented in this encounter Plan of Treatment Not on [...]
--- OUTSIDE RECORDS SUMMARY | 2021-09-09 11:17 | XMS REPORT | Encounter Summary ---
Author Author [facility] Organization [facility] Address Unknown Phone Unavailable Care Team Providers Care Renewals Manager Name Role Phone Caitie Olson MD PCP Encounter Details Care Team Description Date Type Department Boo Levin MD [address] [place] [address] [phone] 08/29/2021 Orders Only Oncology: [facility] [place] [address] [place] [address] Social History Date Tobacco Use Types Packs/Day [...]
--- OUTSIDE RECORDS SUMMARY | 2021-09-09 11:17 | XMS REPORT | Encounter Summary ---
Author Author [facility] Organization [facility] Address Unknown Phone Unavailable Care Team Providers Care Memory Care Director Name Role Phone Caitie Olson MD PCP Reason for Visit * Reason Comments Labs Only Encounter Details Care Team Description Date Type Department Boo Levin MD [address] [place], [place] [id number] Malignant neoplasm of ovary, unspecified laterality (HCC) (Primary Dx) 09/01/2021 Nurse Only Oncology: [address] [phone] Social History Date Tobacco Use Types Packs/Day [...] normal activities documented as of this encounter Procedures Comments Procedure Name Priority Date/Time Associated Diag nosis HC URINE MACRO CCC Routine 09/01/2021 Malignant n eoplasm of 12:35 PM CDT ovary, unspecified laterality (HCC) HC CA 125 Routine 09/01/2021 Malignant neopl asm of 12:35 PM CDT ovary, unspecified laterality (HCC) documented in this encounter Results * URINALYSIS DIPSTICK (09/01/2021 12:35 PM CDT) Color,UA YELLOW [facility] Turbidity,UA CLEAR CLEAR-CLEAR [facility] Specific 1.015 1.003 - 1.035 [facility] [place]-Urine pH,UA 5.5 5.0 - 8.0 [facility] [...] City/State/ZIP Code P davi Number [facility] [address] [place] [address] * CA125 (09/01/2021 12:35 PM CDT) CA-125 349 (H) <35 U/ml [facility] Specimen Blood Performing Organization Address City/State/ZIP Code P davi Number [facility] [address] [place] [address] documented in this encounter Visit Diagnoses Diagnosis Malignant neoplasm of ovary, unspecifie d laterality (HCC) - Primary documented in this encounter Additional Health Concerns Assessment Noted Time A fall risk assessment has been completed for the pat ient 09/01/2021 1:04 PM CDT documented as of this encounter
--- OUTSIDE RECORDS SUMMARY | 2021-09-09 11:17 | XMS REPORT | Encounter Summary ---
Author Author [facility] Organization [facility] Address Unknown Phone Unavailable Care Team Providers Care Court Operations Clerk Name Role Phone Caitie Olson MD PCP Reason for Visit * Reason Comments Treatment C11 D1 MVASI * Treatment (Routine) Referred By Contact Referred To Contact Status Reason Specialty Diagnoses / Procedures Boo Levin MD [address] [place] [address] Cc - Ww Cl Trmt Rm [address] [facility], [address] [place] [address] Authorized Diagnoses Malignant neoplasm of ovary, unspecified laterality (HCC) P rocedures bevacizumab-awwb (MVASI) Encounter Details Care Team Description Date Type Department Boo Levin MD [address] [place] [address] [phone] 09/01/2021 Hospital Oncology: [facility] [address] [facility], [address] [place] [address] Social History Date Tobacco Use Types Packs/Day [...] 178/66 09/01/2021 2:46 PM CDT Blood Pressure - - Pulse - - Temperature - - Respiratory Rate - - Oxygen Saturation - - Inhaled Oxygen Concentration - - Weight - - Height - - Body Mass Index documented in this encounter [...] impairment: No documented as of this encounter Medications at Time of Discharge Start Date End Date Medication Sig Dispensed Refills acetaminophen (TYLENOL) Take 1,000 mg 0 500 mg tablet by mouth at bedtime daily. Max of 4,000 mg of acetaminophen in 24 hours. ALPRAZolam (XANAX) 0.5 mg Take 0.25 mg 0 tablet by mouth at bedtime as needed for Sleep or Anxiety. 08/13/2018 atorvastatin (LIPITOR) 10 Take 10 mg by 0 mg tablet mouth daily. 09/14/2020 azelaic acid (FINACEA) 15 Apply 1 g 0 % gel topical gel topically to affected area twice daily. 10/29/2020 carvediloL (COREG) 12.5 Take 12.5 mg 0 mg tablet by mouth twice daily. 09/01/2021 cephalexin (KEFLEX) 250 Take one 28 capsule 0 mg capsule capsule by mouth four times daily. 03/10/2021 fluconazole (DIFLUCAN) Take one 5 tablet 1 200 mg tablet tablet by mouth daily. 10/30/2020 gabapentin (NEURONTIN) Take 300 mg 0 300 mg capsule by mouth three times daily. 09/06/2020 hydroCHLOROthiazide Take 12.5 mg 0 (HYDRODIURIL) 25 mg by mouth tablet daily. lactobacillus rhamnosus Take 1 0 (GG) (CULTURELLE) 10 capsule by billion cell cap mouth twice daily with meals. 2020 lisinopriL (ZESTRIL) 40 Take 40 mg by 0 mg tablet mouth daily. 09/05/2020 meloxicam (MOBIC) 15 mg Take 15 mg by 0 tablet mouth daily. 10/22/2020 ondansetron (ZOFRAN) 8 mg Take one 30 tablet 3 tabletIndications: tablet by Malignant neoplasm of mouth every 8 ovary, unspecified hours as laterality (HCC) needed (nausea and vomiting). pantoprazole DR Take 40 mg by 0 (PROTONIX) 40 mg tablet mouth daily. 10/22/2020 prochlorperazine maleate Take one 30 tablet 3 (COMPAZINE) 10 mg tablet by tabletIndications: mouth every 6 Malignant neoplasm of hours as ovary, unspecified needed for laterality (HCC) Nausea or Vomiting. First choice for nausea for the first 3 days after chemotherapy documented as of this encounter Discharge Disposition Code Departure Means Destination Disposition Home Home or Self Care documented in this encounter Progress Notes * Caryl Brasher BSN - 09/01/2021 1:45 PM CDT CHEMO NOTE Verified chemo consent signed and in chart. Verified initiate chemo order in O2 Blood return positive via: Peripheral (22 ga) BSA and dose double checked (agree with orders as written) with: yes Labs/applicable tests checked: UA and OK to treat with elevated bP Chemo regime: Cycle 11 Day 1 bevacizumab-awwb (MVASI) 850 mg in sodium chloride 0.9% (NS) 134 mL IVPB Rate verified and armband double checkwith second RN: yes Patient education offered and stated understanding. Denies questions at this venecia e. documented in this encounter Miscellaneous Notes * Addendum Note - Ximena Banuelos - 09/01/2021 1:45 PM CDT Encounter addended by: Ximena Banuelos on: 09/05/2021 8:49 AM Actions taken: Charge Capture section accepted documented in this encounter Plan of Treatment Not on filedocumented as of this encounter Goals Goal Patient Associated Recent Progress Patient-Stat Aut hor Goal Type Problems ed? Recover from illness Hospital No Chato Rodriguez, RN Note: Resume normal activities documented as of this encounter Visit Diagnoses Diagnosis Malignant neoplasm of ovary, unspecifie d laterality (HCC) - Primary documented in this encounter Administered Medications Action Date Dose Rate Site Medication Order MAR Action 09/01/2021 4:23 PM CDT 850 mg 268 mL/hr bevacizumab-awwb (MVASI) 850 mg in Given - New sodium chloride 0.9% (NS) 134 mL IVPB Bag 850 mg (rounded from 871.5 mg = 15 mg/k g 58.1 kg Treatment Plan Recorded weight) , Intravenous, 134 mL, Administer over 30 Minutes, ONCE, 1 dose, On Ana Rosa 09/01/21 at 1600, NOTE: This is a HIGH ALERT Medication. documented in this encounter Orders First Ordered Date Medications Ordered That Might Not Have Count Last Ordered Date Been Administered bevacizumab-awwb (MVASI) 850 mg in 1 sodium chloride 0.9% (NS) 134 mL IVPB documented in this encounter Additional Health Concerns Assessment Noted Time A fall risk assessment has been completed for the pat ient 09/01/2021 1:04 PM CDT documented as of this encounter
[2021-09-09] MEDS ORDERED: 0.9% SODIUM CHLORIDE PF INJ 20 ML VIAL ONE (11:45)
[2021-09-09] MEDS ORDERED: HEParin (CENTRAL IV FLUSH) 500 UNIT/5 ML SYR ONE (11:45)
[2021-09-09] MEDS ORDERED: ceFAZolin INJECTION 1,000 MG in WATER (STERILE) FOR INJECTION 10 ML IV ONE (12:00)
[2021-09-09] MEDS ORDERED: LACTATED RINGERS 1,000 ML IV PRN (12:00)
[2021-09-09] MEDS ORDERED: PROPOFOL INJECTION 50 ML IV ONE (12:11)
--- NOTE | 2021-09-09 12:36 | Progress Note-Pre Operative ---
Pre-Operative Progress Note H&P Reviewed The H&P was reviewed, patient examined and no changes noted. Date Seen by Provider: Sep 09, 2021 Time Seen by Provider: 12:00 Date H&P Reviewed: Sep 09, 2021 Time H&P Reviewed: 12:00 Pre-Operative Diagnosis: non-functional rejiong TUNDE Akers MD Sep 09, 2021 12:36
--- NOTE | 2021-09-09 12:37 | Discharge Inst-Surgical ---
D/C Lap Instructions-PAOLA Follow Up PRN Activity as tolerated Regular Diet Symptoms to Report: Fever over 101 degree F, Nausea/Vomiting Infection Signs and Symptoms to report: Increased redness, Foul odor of wound, Increased drainage Bathing instructions: May shower Operative Area Clean/Dry; Keep incision clean/dry If any problems/questions: Contact your physician or go to Emergency Room TUNDE GUEVARA MD Sep 09, 2021 12:37
[2021-09-09] MEDS ORDERED: ACHD5005 PO (12:44)
[2021-09-09] MEDS ORDERED: ACETAMINOPHEN 325 MG TABLET PO PRN (12:45)
[2021-09-09] MEDS ORDERED: HYDROcodone/APAP 5 MG/325 MG (LORTAB) TAB PO ONE (12:45)
[2021-09-09] MEDS ORDERED: ONDANSETRON 4 MG/2 ML (SDV) Z0FRAN IVP PRN (12:45)
[2021-09-09] MEDS ORDERED: morphine INJ 10 MG/ML 1ML (SYR OR VIAL) IVP PRN ×2 (12:45)
--- NOTE | 2021-09-09 13:09 | Progress Note-Post Operative ---
Post-Operative Progess Note Surgeon (s)/Tenterer (s) Surgeon TUNDE GUEVARA MD Tenterer: none Pre-Operative Diagnosis non-functional groshong cath Post-Operative Diagnosis same Procedure & Operative Findings Date of Procedure 09/09/21 Procedure Performed/Findings removal and replacement left subclavian groshong cath. Anesthesia Type mac with local Estimated Blood Loss Estimated blood loss (mL): minimal Specimens/Packing Specimens Removed none TUNDE GUEVARA MD Sep 09, 2021 13:09
--- NOTE | 2021-09-09 13:15 | Anesthesia-General Post-Op ---
MAC Patient Condition Mental Status/LOC: Same as Preop Cardiovascular: Satisfactory Nausea/Vomiting: Absent Respiratory: Satisfactory Pain: Controlled Complications: Absent Post Op Complications Complications None Follow Up Care/Instructions Patient Instructions None needed. Anesthesiology Discharge Order Discharge Order Patient is doing well, no complaints, stable vital signs, no apparent adverse anesthesia problems. No complications reported per nursing. EMMA GLASER CRNA Sep 09, 2021 13:15
--- NOTE | 2021-09-09 14:28 | Diagnostic Imaging Report ---
INDICATION: POST OP CATHETER PLACEMENT. TECHNIQUE: Single-view chest at 01:45 p.m. CORRELATION STUDY: 09/11/2019. FINDINGS: A left-sided Hsbmze-K-Dlka catheter has been apparently removed with placement of a new catheter and port. Tip projects at the cavoatrial junction. There is presence of a small left apical pneumothorax. Small right pleural effusion. Heart size and mediastinum are unremarkable. IMPRESSION: 1. Placement of a left-sided subclavian Mcrgpq-B-Dnga catheter with tip at the cavoatrial junction. 2. Small left apical pneumothorax. Critical findings Dr. Castro richardson, 01:59 p.m. Telephone call made to outpatient surgery nursing (SDC), [facility], 02:08 p.m. Dictated by: Dictated on workstation # [id number]
--- NOTE | 2021-09-09 18:35 | OPERATIVE REPORT ---
DATE OF SERVICE: 09/09/2021 ATTENDING PRIMARY CARE PHYSICIAN: Dr. Caitie Olson. PREOPERATIVE DIAGNOSIS: Nonfunctional Groshong implantable catheter with history of metastatic adenocarcinoma. POSTOPERATIVE DIAGNOSIS: Nonfunctional Groshong implantable catheter with history of metastatic adenocarcinoma. PROCEDURE: Removal and replacement of left subclavian Groshong implantable catheter under fluoroscopy. SURGEON: Tunde Guevara MD. ANESTHESIA: Monitored anesthesia care with local. ESTIMATED BLOOD LOSS: Minimal. FINDINGS: Same as postoperative diagnosis. DISPOSITION: The patient tolerated the procedure well. INDICATIONS: The patient is an 80-year-old female known to us. She was initially referred over to us for a left abdominal mass identified on CT scan. She had also reported worsening abdominal pain at that time in the pelvic region. She did undergo an ultrasound, which did show a complex cystic and solid left ovary. There were also omental caking concerned for metastatic disease. She underwent a CT-guided biopsy on 05/30/2019, which did come back consistent with a metastatic adenocarcinoma of gynecologic origin. We had placed a Groshong implantable catheter on 06/19/2019. She has been using this for maintenance chemotherapy. She has lost a significant amount of weight and the skin overlying the port, is very thin and chronically irritated; however, there were no signs of any infection. DESCRIPTION OF PROCEDURE: The patient was brought to the operating room, laid supine on the table. After adequate IV pain and sedative medications and monitored anesthesia care, the chest and neck were prepped and draped in standard surgical fashion. A 1% lidocaine with epinephrine was used to anesthetize overlying skin just above the port and a skin incision made using a 15 blade. The capsule was then opened using Metzenbaum scissors and removed from the subcutaneous reservoir and the port and the catheter were then removed intact while holding pressure with visualization of good hemostasis. The reservoir was then created more inferior and lateral where the subcutaneous tissue as well as breast tissue was thicker. The left subclavian vein was then cannulated with drawing of venous blood. The guidewire was inserted under fluoroscopy. Cannulating needle removed and the dilator and sheath were then placed over the guidewire. The dilator and guidewire were then removed and the Groshong catheter was placed through the sheath until the tip of the catheter was at the superior vena caval -- right atrial junction. The sheath was then removed and the wire within the catheter was removed and the catheter cut down to size and port placed onto the catheter. The port was then placed into the newly created chest reservoir more inferior and lateral and sutured to the anterior pectoralis fascia using interrupted 3-0 Vicryl sutures. The subcutaneous tissue was then reapproximated using 3-0 Vicryl interrupted sutures. Skin was closed using 4-0 Monocryl running subcuticular suture. Wound was then cleaned and covered with Dermabond. The patient tolerated the procedure well. We will get a post-procedure chest x-ray once confirmation of placement of the port may be accessed and used at any time. Job ID: [id number] DocumentID: [id number] Dictated Date: 09/09/2021 13:14:39 Ground Systems Engineer Date: 09/09/2021 18:33:59 Dictated By: TUNDE GUEVARA MD
--- NOTE | 2021-09-09 18:53 | Diagnostic Imaging Report ---
INDICATION: Undergoing port removal and placement. TECHNIQUE: Single intraprocedural images superior mid chest. FINDINGS/ IMPRESSION: The hospital radiology department provided fluoroscopic imaging in support of an interventional procedure. A radiologist was not present. Please reference the operating provider's procedure note. Fluoroscopy Time: 8.6 seconds. Dictated by: Dictated on workstation # [id number]
[2021-09-14] MEDS ORDERED: HYDR25TA4 PO (09:10)
[2021-09-14] MEDS ORDERED: ALPR0.5T7 PO ×2 (09:10)
[2021-09-14] MEDS ORDERED: GABA300C PO (09:10)
[2021-09-14] MEDS ORDERED: ACET-2267 PO (09:13)
[2021-09-14] MEDS ORDERED: DIPH25CA79 PO (09:13)
[2021-09-14] MEDS ORDERED: LACT1CAP39 PO (09:13)
== END 2021-09-09 14:20 | disposition home or self-care (01) ==
LOC: SDC 11:14
PROVIDERS: ATTEND Surgery
DX: T82.594A Other mechanical complication of infusion catheter, initial encounter (principal); I10 Essential (primary) hypertension; E78.5 Hyperlipidemia, unspecified; Z79.899 Other long term (current) drug therapy; Z85.43 Personal history of malignant neoplasm of ovary; Z90.710 Acquired absence of both cervix and uterus; Z80.6 Family history of leukemia; Z80.7 Family history of other malignant neoplasms of lymphoid, hematopoietic and related tissues
CPT/HCPCS: 36582; 71045; 76000; 87081; C1788

== ENCOUNTER 2021-09-13 15:34 | Inpatient (IN) | payer MEDICARE ==
[~2021-09-13] VITALS: Ht 157 cm; Wt 59.5 kg
[~2021-09-13 15:34] MED LIST changes: -ACET-2267 PO; -ALPR0.5T7 PO; -DIPH25CA79 PO; -GABA300C PO; -HYDR25TA4 PO; -LACT1CAP39 PO
--- OUTSIDE RECORDS SUMMARY | 2021-09-13 15:38 | XMS REPORT | Encounter Summary ---
Author Author [facility] Organization [facility] Address Unknown Phone Unavailable Care Team Providers Care Tape Editor Name Role Phone Caitie Olson MD PCP Reason for Visit * Reason Comments Treatment C11 D1 MVASI * Treatment (Routine) Referred By Contact Referred To Contact Status Reason Specialty Diagnoses / Procedures Boo Levin MD [address] [place] [address] Cc - Ww Cl Trmt Rm [address] [facility]. [address], [address] [place] [address] Authorized Diagnoses Malignant neoplasm of ovary, unspecified laterality (HCC) P rocedures bevacizumab-awwb (MVASI) Encounter Details Care Team Description Date Type Department Boo Levin MD [address] [place] [address] [phone] 09/01/2021 Hospital Oncology: [facility] [address] [facility]. [address], [address] [place] [address] Social History Date Tobacco Use Types Packs/Day [...]
--- OUTSIDE RECORDS SUMMARY | 2021-09-13 15:38 | XMS REPORT | Encounter Summary ---
Author Author [facility] Organization [facility] Address Unknown Phone Unavailable Care Team Providers Care Scene Shifter Name Role Phone Caitie Olson MD PCP Reason for Visit * Reason Onset Date Comments Patient Information 09/12/2021 central line Encounter Details Care Team Description Date Type Department Anahi Toure RN Patient Information (central line) 09/12/2021 Telephone Oncology: [facility] [address] [place] [address]. [place] [phone] Social History Date Tobacco Use Types Packs/Day [...] encounter Miscellaneous Notes * Telephone Encounter - Anahi Toure RN - 09/12/2021 12:19 PM CDT Received a message from Dr. Erazo's office stating that Briana has had her Groshon g central line removed and replaced with a new Groshong central line. Nothing sp ecial needs to be done with the new line and it can be used just like the previo us line. We can call back should we have further questions or concerns. documented in this encounter Plan of Treatment [...]
--- OUTSIDE RECORDS SUMMARY | 2021-09-13 15:38 | XMS REPORT | Clinical Summary ---
Author Author [facility] Organization [facility] Address Unknown Phone Unavailable Care Team Providers Care Overlock Collar Setter Name Role Phone Caitie Olson MD PCP Source Comments Some departments are not documenting in the electronic medical record. If you d o not see the information that you expected, contact Release of Information in [facility] [place] Information Management department at [phone] for further assistan ce in locating additional records.[facility] Allergies Comments Active Allergy Reactions Severity [...] gillespie Contact Name & Number: Janet @ [phone] PCP: Dr. Caitie Olson History of Present [...] arm, PN; denies issues with her H/L/K/L/DM/Thyroid disease/[place]/Stroke/seizure/asthma/COPD Surgical Hx Surgery/Year: resection of melanoma of [...] Encounters Care Team Description Date Type Specialty Anahi Toure RN Patient Information (central line) 09/12/2021 Telephone Oncology Boo Levin MD Appointment Request 09/05/2021 Telephone [...] Breanna Gallagher, PHARMD 08/29/2021 Orders Only Oncology from Last 3 Months Immunizations Name Administration [...] OMENTECTOMY performed by Perez Carter MD at [facility] OR COLECTOMY 08/18/2020 N/A LOWER ANTERIOR RESECTION, MOBILIZATION OF SPLENIC FLEXURE performed by Jensen Andres DO at [facility] OR Medical History Medical History Date Comments [...] Routine 08/30/2021 Malignant neoplasm of both ovaries from Last 3 Months Results * URINALYSIS DIPSTICK (09/01/2021 12:35 PM CDT) Color,UA YELLOW [facility] Turbidity,UA CLEAR CLEAR-CLEAR [facility] Specific 1.015 1.003 - 1.035 [facility] [place]-Urine pH,UA 5.5 5.0 - 8.0 [facility] Protein,UA 1+ (A) NEG-NEG [facility] Glucose,UA NEG NEG-NEG [facility] Ketones,UA NEG NEG-NEG [facility] Bilirubin,UA NEG NEG-NEG [facility] Blood,UA TRACE (A) NEG-NEG [facility] Urobilinogen,UA NORMAL NORM-NORMAL [facility] Nitrite,UA NEG NEG-NEG [facility] Leukocytes,UA 2+ (A) NEG-NEG [facility] Specimen Urine - Urine Performing Organization Address City/[facility]/ZIP Code P davi Number [facility] [address] [place] [address] * CA125 (09/01/2021 12:35 PM CDT) [id number] (H) <35 U/ml [facility] Specimen Blood Performing Organization Address City/State/ZIP Code P davi Number [facility] [address] [place] [address] * CT ABD/PELV W CONTRAST (08/30/2021) Narrative Performed At This result has an attachment that is n ot available. Performing Organization Address City/State/ZIP Code P davi Number [facility] * CT CHEST W CONTRAST (08/30/2021) Narrative Performed At This result has an attachment that is n ot available. Performing Organization Address City/State/ZIP Code P davi Number [facility] from Last 3 Months Insurance Type Payer Benefit Subscriber ID Effective Phone Address Plan / Dates Group Medicare AETNA MEDICARE AETNA [id number] [id number] MEDICARE resent PPO [phone] Advance Directives Patient College Advisor Explanation Type Date Recorded Advance Directive/DPOA Date Inactivated Comments Code Status Date Activated 11/27/2020 11:26 AM Full Code 11/26/2020 8:01 AM Provider has discussed Code Status No, more discussi on w/Patient or Family? needed 08/21/2020 6:16 PM Full Code 08/18/2020 7:54 PM Provider has discussed Code Status No, more discussi on w/Patient or Family? needed
--- OUTSIDE RECORDS SUMMARY | 2021-09-13 15:38 | XMS REPORT | Encounter Summary ---
Author Author [facility] Organization [facility] Address Unknown Phone Unavailable Care Team Providers Care Occupational Therapy Department Chair Name Role Phone Caitie Olson MD PCP Reason for Visit * Reason Onset Date Comments Appointment Request 09/05/2021 Encounter Details Care Team Description Date Type Department Boo Levin MD [address] [place] [address] [phone] Appointment Request 09/05/2021 Telephone Oncology: [address] [phone] Social History Date Tobacco Use Types Packs/Day [...]
--- NOTE | 2021-09-13 16:22 | ED Respiratory ---
General Chief Complaint: Respiratory Problems Stated Complaint: DECREASED LUNG SOUND Nursing Triage Note: Patient has presented to ER with cc of shortness of breath. Patient reports that she had a port placed in her upper left chest on Sunday, she had a small pneumothorax on Sunday - 10%, she had a repeat x-ray this morning and it was 30%, she followed up with Dr. Fernández in her office and she was sent to the ER for evaluation becauce her oxygen sats were 87% and she is feeling short of breath. Source: patient, old records History of Present Illness Date Seen by Provider: Sep 13, 2021 Time Seen by Provider: 15:59 Initial Comments 80-year-old female presenting with some increased shortness of breath since last week. She had a port placed in her left chest on Sunday and had a small pneumothorax after that. She had a repeat x-ray today to monitor the pneumothorax. Today it was increased over 30% of the left lung. She had followed up with Dr. Mccarthy and was sent to the ER as they reported her oxygen saturation was 87% in the clinic. She has been 90 to 92% on room air here at the emergency department. She has not tried to reach Dr. ERAZO about the pneumothorax and follow-up from today's x-ray. Associated Symptoms: chest pain/soreness; No cough, No dizziness, No earache, No facial pain, No fever/chills, No headache, No lightheadedness, No muscle aches, No nasal congestion, No nasal drainage; shortness of breath Allergies and Home Medications Allergies Coded Allergies: carboplatin (Verified Allergy, Unknown, 10/16/19) tramadol (Verified Allergy, Unknown, 09/08/21) Patient Home Medication List Home Medication List Reviewed: Yes Alprazolam (Xanax) 0.5 Mg Tablet, 0.5 MG PO BID PRN for ANXIETY Prescribed by: CHRISTIAN BOYLE on 06/19/19 1229 Amlodipine Besylate (Amlodipine Besylate) 2.5 Mg Tablet, 2.5 MG PO DAILY, (Reported) Entered as Reported by: JOSE M LOPEZ on 09/08/21 1106 Atorvastatin Calcium (Atorvastatin Calcium) 10 Mg Tablet, 10 MG PO HS, (Reported) Entered as Reported by: OSEAS MCKINNEY on 05/30/19 1049 Carvedilol (Carvedilol) 25 Mg Tablet, 25 MG PO BID, (Reported) Entered as Reported by: JOSE M LOPEZ on 09/08/21 1106 Hydrochlorothiazide (Hydrochlorothiazide) 12.5 Mg Capsule, 12.5 MG PO DAILY, (Reported) Entered as Reported by: OSEAS MCKINNEY on 05/30/19 1049 Lisinopril (Lisinopril) 40 Mg Tablet, 40 MG PO DAILY, (Reported) Entered as Reported by: OSEAS MCKINNEY on 05/30/19 1049 Meloxicam (Meloxicam) 15 Mg Tablet, 15 MG PO DAILY, (Reported) Entered as Reported by: OSEAS MCKINNEY on 05/30/19 1049 Pantoprazole Sodium (Protonix) 40 Mg Tablet.dr, 40 MG PO DAILY, (Reported) Entered as Reported by: JOSE M LOPEZ on 09/08/21 1106 Discontinued Medications Calcium Carbonate (Calcium) 600 Mg Tablet, 600 MG PO DAILY, (Reported) Discontinued Reason: No Longer Taking Entered as Reported by: MANNY FIELDS on 06/16/19 1621 Hydrocodone Bit/Acetaminophen (Lortab 5 Mg Tablet) 1 Each Tablet, 1-2 TAB PO Q4H Discontinued Reason: No Longer Taking Prescribed by: KARINE RIZVI on 06/19/19 1026 Multivitamin (Multiple Vitamins) 1 Each Tablet, 1 EACH PO DAILY, (Reported) Discontinued Reason: No Longer Taking Entered as Reported by: MANNY FIELDS on 06/16/19 1621 Review of Systems Review of Systems Constitutional: No chills, No fever EENTM: no symptoms reported Respiratory: see HPI Cardiovascular: no symptoms reported Gastrointestinal: no symptoms reported Genitourinary: no symptoms reported Musculoskeletal: no symptoms reported Skin: no symptoms reported Psychiatric/Neurological: No Symptoms Reported Past Ndriydm-Gmhrzd-Odefmx Hx Patient Social History Tobacco Use?: No Smoking Status: Never a Smoker Smokeless Tobacco Frequency: Never a User Use of E-Cig and/or Vaping dev: No Use of E-Cig and/or Vaping Sincere: Never a User Substance use?: No Alcohol Use?: No Pt feels they are or have been: Unable to obtain Immunizations Up To Date PED Vaccines UTD: Yes First/Initial COVID19 Vaccinat: dec 21 2020 Second COVID19 Vaccination Len: january 18 2021 Third COVID19 Vaccination Date: july 04 2021 Seasonal Allergies Seasonal Allergies: No Past Medical History Surgeries: Yes (melanoma on arm removed; debulking surgery- took part of bladder and colon ) Hysterectomy Respiratory: No Currently Using CPAP: No Currently Using BIPAP: No Cardiac: Yes High Cholesterol, Hypertension Neurological: Yes Neuropathy Sexually Transmitted Disease: No HIV/AIDS: No Genitourinary: Yes Gastrointestinal: Yes Gastroesophageal Reflux Musculoskeletal: Yes Arthritis Endocrine: No HEENT: Yes (GLASSES) Cataract Cancer: Yes Melanoma, Ovarian Did You Recieve Any Treatments: Yes What Type of Treatment Did You: Chemotherapy, Surgical Intervention Psychosocial: No Integumentary: No Blood Disorders: No Adverse Reaction/Blood Tranf: No (N/A) Physical Exam Vital Signs - First Documented 09/13/21 15:37 Temp 35.8 Pulse 94 Resp 20 B/P (MAP) 204/165 (178) Pulse Ox 91 Capillary Refill : Height: 5'1.00" Weight: 154lbs. 9.0oz. [id number]; 23.00 BMI Method: General Appearance: no apparent distress, thin HEENT: PERRL/EOMI, pharynx normal Respiratory: decreased breath sounds (Left lung) Cardiovascular: normal peripheral pulses Neurologic/Psychiatric: alert, oriented x 3 Skin: normal color, warm/dry Progress/Results/Core Measures Suspected Sepsis SIRS Temperature: Pulse: 94 Respiratory Rate: 20 Blood Pressure 204 /165 Mean: 178 Results/Orders Vital Signs/I&O 09/13/21 09/13/21 15:37 17:19 Temp 35.8 Pulse 94 82 Resp 20 22 B/P (MAP) 204/165 (178) 194/89 Pulse Ox 91 93 Capillary Refill : Blood Pressure Mean: 178 Progress Note : Progress Note Reviewed with pt that with pneumothorax worsening she would need a Chest tube to treat that and let the lung re-expand. I have large surgical type chest tubes but at [facility] they have Pleurocath small chest tubes that might treat her pneumothorax. She would like to go for the smaller less invasive treatment. D/w Dr. Erazo and he requested to have pt placed in observation status to him and he would plan on bedside procedure to place Pleurocath. Updated pt and spouse and they were agreeable with plan Departure Communication (Admissions) Time/Spoke to Admitting Phy: 16:24 d/w Dr. Erazo and he requested pt be placed in observation status with him and he would place a pleurocath chest tube at bedside after she gets to [facility]. He will monitor overnight and wants O2 to maintain sats above 91% Impression Primary Impression: Pneumothorax, left Disposition: 30 STILL A PATIENT Condition: Stable Admissions Decision to Admit Reason: Admit from ER (General) Decision to Admit/Date: Sep 13, 2021 Time/Decision to Admit Time: 16:24 Departure-Patient Inst. Referrals: VI MCCARTHY MD (PCP/Family) Primary Care Physician MYRA MAS MD Sep 13, 2021 16:22
[2021-09-13 18:29] VITALS: BP 226/116
[2021-09-13] MEDS ORDERED: CATHETER FLUSH 10 ML SYR IV PRN (18:45)
[2021-09-13 19:43] VITALS: BP 226/116
[2021-09-13 19:46] VITALS: BP 212/102
[2021-09-13] MEDS ORDERED: RT-ALBUTEROL/IPRATROPIUM 3 ML (DUONEB) VIAL INH PRN (20:00)
[2021-09-13] MEDS: NS IV 1000 ML 1,000 ML IV SCH (20:20)
[2021-09-13] MEDS: RT-ALBUTEROL/IPRATROPIUM 3 ML (DUONEB) VIAL INH SCH (20:44)
[2021-09-13 21:30] VITALS: BP 208/110
[2021-09-13] MEDS ORDERED: ALPRAZolam 0.5 MG (XANAX) TAB ONE (21:37)
[2021-09-13] MEDS: ENALAPRIL 5 MG (VASOTEC) TAB PO PRN (21:40)
[2021-09-13] MEDS: ALPRAZolam 0.5 MG (XANAX) TAB PO PRN (21:41)
[2021-09-13 23:00] VITALS: BP 204/108
[2021-09-14] VITALS (9 sets, daily range): BP systolic 142–194; BP diastolic 67–87
[2021-09-14] MEDS: RT-ALBUTEROL/IPRATROPIUM 3 ML (DUONEB) VIAL INH SCH ×4 (03:07→22:13)
[2021-09-14] MEDS ORDERED: PANTOPRAZOLE 40 MG (PROTONIX) TAB PO SCH (07:00)
[2021-09-14] MEDS ORDERED: PATIENT MAY USE OWN MEDS, ALL MC SCH (08:15)
[2021-09-14] MEDS ORDERED: amLODIPine 2.5MG (NORVASC) TAB PO SCH (09:00)
[2021-09-14] MEDS ORDERED: lisINopril 40 MG (PRINIVIL) TABLET PO SCH (09:00)
[2021-09-14] MEDS ORDERED: MELOXICAM 7.5 MG (MOBIC) TABLET PO SCH (09:00)
[2021-09-14] MEDS ORDERED: ALPR0.5T7 PO ×4 (09:10)
[2021-09-14] MEDS ORDERED: HYDR25TA4 PO ×2 (09:10)
[2021-09-14] MEDS ORDERED: GABA300C PO ×2 (09:10)
[2021-09-14] MEDS ORDERED: ACET-2267 PO ×2 (09:13)
[2021-09-14] MEDS ORDERED: LACT1CAP39 PO ×2 (09:13)
[2021-09-14] MEDS ORDERED: DIPH25CA79 PO ×2 (09:13)
[2021-09-14] MEDS: NS IV 1000 ML 1,000 ML IV SCH ×2 (09:43→21:53)
[2021-09-14] MEDS ORDERED: LIDOCAINE 1% INJ 20 ML 20 ML VIAL ONE (10:40)
[2021-09-14] MEDS: lisINopril 40 MG (PRINIVIL) TABLET PO SCH (10:46)
[2021-09-14] MEDS: amLODIPine 2.5MG (NORVASC) TAB PO SCH (10:47)
[2021-09-14] MEDS: MELOXICAM 15 MG PO SCH (10:47)
[2021-09-14] MEDS: fentaNYL INJ 100 MCG/2 ML AMP IV PRN (10:51)
[2021-09-14] MEDS ORDERED: LORazepam INJ 2 MG/ML (ATIVAN) VIAL ONE (10:59)
[2021-09-14] MEDS ORDERED: LORazepam INJ 2 MG/ML (ATIVAN) VIAL IVP PRN (11:00)
[2021-09-14] MEDS ORDERED: LIDOCAINE 1% INJ 20 ML 20 ML VIAL INJ ONE (11:00)
[2021-09-14] MEDS ORDERED: ONDANSETRON 4 MG/2 ML (SDV) Z0FRAN ONE (11:12)
[2021-09-14] MEDS: ONDANSETRON 4 MG/2 ML (SDV) Z0FRAN IVP PRN (11:30)
--- NOTE | 2021-09-14 16:21 | Diagnostic Imaging Report ---
INDICATION: Thora-Vent placement and pneumothorax. TIME OF EXAM: 2:09 PM Correlation made to prior study one day earlier. There continues to be a large left pneumothorax. Pneumothorax has increased in size since prior. There appears to be a small-caliber chest tube in the left base. Most of the left lung is now atelectatic. Left chest wall port has tip overlying SVC right atrial junction. Right lung is well expanded. IMPRESSION: Enlarging left-sided pneumothorax despite Thora-Vent placement. Attempts were made to call Dr. Erazo but were unsuccessful. Called to [facility] at 4:16 p.m. by cvb. Dictated by: Dictated on workstation # [id number]
[2021-09-14] MEDS: HYDROcodone/APAP 7.5 MG/325 MG (LORTAB, LORCET PLUS) TABLET PO PRN (17:32)
--- NOTE | 2021-09-14 18:18 | OPERATIVE REPORT ---
DATE OF SERVICE: 09/14/2021 ATTENDING PRIMARY CARE PHYSICIAN: Dr. Caitie Olson. PREOPERATIVE DIAGNOSIS: Left pneumothorax. POSTOPERATIVE DIAGNOSIS: Left pneumothorax. PROCEDURE PERFORMED: Placement of a 13-[place] Islander pneumothorax chest tube. SURGEON: Tunde Guevara MD. ANESTHESIA: Local. ESTIMATED BLOOD LOSS: Minimal. FINDINGS: Just air evacuation. DISPOSITION: The patient tolerated the procedure well. INDICATIONS FOR PROCEDURE: The patient is an 80-year-old female known to us. She was initially referred over to us for left abdominal pain. She had a CT scan done as well as an ultrasound, which did confirm a complex cystic and solid lesion of the ovary as well as omental caking around the region consistent with an ovarian cancer with metastatic disease. A CT-guided biopsy on 05/30/2019 confirmed metastatic adenocarcinoma of gynecologic origin. She originally had a Groshong implantable catheter placed on 06/19/2019. She has lost a significant amount of weight for this maintenance chemotherapy and the overlying skin became very thin and irritated; however, no signs of infection. On 09/09/2021, she underwent removal and replacement of left subclavian Groshong implantable catheter with a low profile port. She did well after surgery. She did develop shortness of breath on Sunday and she did have a followup chest x-ray ordered at that time, which did show pneumothorax of approximately 30%. She is otherwise comfortable and not currently short of breath with oxygen supplementation. DESCRIPTION OF PROCEDURE: The patient remained in her bed and the left lateral chest was prepped and draped in a standard surgical fashion. A 1% lidocaine with epinephrine was used to anesthetize the overlying skin at approximately the seventh intercostal space laterally. A skin incision was then made using #11 blade and then a 13-[place] Islander pneumothorax chest tube was placed evacuating air. The chest tube was then firmly affixed to the skin using tape. The patient tolerated the procedure well. We will get a post-procedure chest x-ray as well as daily a.m. chest x-rays and once the lung is fully up and there is no leak identified, we will remove the chest tube. Job ID: [id number] DocumentID: [id number] Dictated Date: 09/14/2021 11:37:55 Wallet Assembler Date: 09/14/2021 18:16:27 Dictated By: TUNDE GUEVARA MD
[2021-09-14] MEDS: AtorvaSTATin TABLET 10 MG TABLET PO SCH (21:54)
[2021-09-15] MEDS: HYDROcodone/APAP 7.5 MG/325 MG (LORTAB, LORCET PLUS) TABLET PO PRN (00:23)
[2021-09-15] MEDS: ENALAPRIL 5 MG (VASOTEC) TAB PO PRN ×2 (00:23→22:31)
[2021-09-15] MEDS: ONDANSETRON 4 MG/2 ML (SDV) Z0FRAN IVP PRN (02:08)
[2021-09-15] MEDS: RT-ALBUTEROL/IPRATROPIUM 3 ML (DUONEB) VIAL INH SCH ×4 (02:23→21:44)
[2021-09-15 04:58] VITALS: BP 162/71
[2021-09-15] MEDS: PANTOPRAZOLE 40 MG (PROTONIX) TAB PO SCH (05:09)
[2021-09-15 07:39] VITALS: BP 165/81
[2021-09-15] MEDS: MELOXICAM 15 MG PO SCH (07:55)
[2021-09-15] MEDS: amLODIPine 2.5MG (NORVASC) TAB PO SCH (07:56)
[2021-09-15] MEDS: lisINopril 40 MG (PRINIVIL) TABLET PO SCH (07:57)
[2021-09-15] MEDS ORDERED: amLODIPine 2.5MG (NORVASC) TAB PO SCH (09:00)
[2021-09-15] MEDS ORDERED: MELOXICAM 15 MG PO SCH (09:00)
[2021-09-15] MEDS: NS IV 1000 ML 1,000 ML IV SCH (11:18)
[2021-09-15 11:40] VITALS: BP 184/91
[2021-09-15] MEDS ORDERED: PROMETHAZINE INJ 25 MG/ML (PHENERGAN) AMP IVP PRN (14:30)
[2021-09-15] MEDS ORDERED: ONDANSETRON 4 MG/2 ML (SDV) Z0FRAN IVP PRN (14:30)
--- NOTE | 2021-09-15 15:18 | Progress Note ---
Subjective Date Seen by a Provider: Sep 15, 2021 Time Seen by a Provider: 15:00 Subjective/Events-last exam doing ok. less SOB. small retaining PTX. tolerating diet. Objective Exam Vital Signs Date Time Temp Pulse Resp B/P (MAP) Pulse Ox O2 Delivery O2 Flow Rate FiO2 09/15/21 14:37 96 09/15/21 11:40 36.4 86 16 184/91 (122) 98 Nasal Cannula 2.00 09/15/21 08:00 Room Air 2.00 09/15/21 07:44 96 Nasal Cannula 2.00 09/15/21 07:39 36.8 73 18 165/81 (109) 98 Nasal Cannula 2.00 09/15/21 04:58 37.0 72 16 162/71 (101) 95 Nasal Cannula 2.00 09/15/21 00:27 94 Nasal Cannula 2.00 09/14/21 23:54 36.4 76 18 171/76 (107) 90 Room Air 09/14/21 22:13 94 Room Air 09/14/21 20:36 36.6 77 18 172/84 (113) 92 Room Air 09/14/21 20:00 0 Room Air 0.00 09/14/21 16:00 36.8 75 18 171/80 (110) 92 Room Air 09/14/21 15:52 96 Room Air I & O 09/15/21 07:00 Intake Total 1080 ml Output Total 315 ml Balance 765 ml Capillary Refill : General Appearance: No Apparent Distress HEENT: PERRL/EOMI Neck: Full Range of Motion Respiratory: Chest Non Tender, Lungs Clear, Decreased Breath Sounds Cardiovascular: Regular Rate, Rhythm Gastrointestinal: normal bowel sounds, non tender, soft Extremity: Normal Capillary Refill Neurologic/Psychiatric: Alert, Oriented x3 Skin: Normal Color Lymphatic: No Adenopathy Assessment/Plan Assessment/Plan Assess & Plan/Chief Complaint left PTX. continue CT. f/u cxr in am. may shower. TUNDE GUEVARA MD Sep 15, 2021 15:18
[2021-09-15 16:00] VITALS: BP 189/87
--- NOTE | 2021-09-15 16:05 | Diagnostic Imaging Report ---
INDICATION: Pneumothorax. COMPARISON: 09/14/2021 TECHNIQUE: 2 radiographs of the chest dated 09/15/2021 FINDINGS: Small caliber left-sided chest tube is identified with the distal tip overlying the left lung base. Previously noted left-sided pneumothorax has significantly improved since the prior examination with small persisting left apical pneumothorax identified. There has been reexpansion of the left lung with persistent mild left midlung and left basilar interstitial opacities. Small bibasilar pleural effusions. The right lung is otherwise clear. No right pneumothorax. No acute osseous abnormality. The cardiac silhouette is stable. Left-sided Port-A-Cath is stable. IMPRESSION: Significantly improved though small persisting left-sided pneumothorax with small caliber left-sided chest tube in place. There has been resulting reexpansion of the left lung with persisting mild left midlung and left basilar atelectasis or less likely edema. Small bibasilar pleural effusions. Dictated by: Dictated on workstation # [id number]
[2021-09-15 20:00] VITALS: BP 187/90
[2021-09-15] MEDS: AtorvaSTATin TABLET 10 MG TABLET PO SCH (21:12)
[2021-09-15] MEDS: ALPRAZolam 0.5 MG (XANAX) TAB PO PRN (21:17)
[2021-09-15 22:27] VITALS: BP 174/80
[2021-09-16] VITALS (7 sets, daily range): BP systolic 163–189; BP diastolic 69–86
[2021-09-16] MEDS: NS IV 1000 ML 1,000 ML IV SCH (00:17)
[2021-09-16] MEDS: RT-ALBUTEROL/IPRATROPIUM 3 ML (DUONEB) VIAL INH SCH ×4 (03:38→22:05)
[2021-09-16] MEDS: PANTOPRAZOLE 40 MG (PROTONIX) TAB PO SCH (05:36)
[2021-09-16] MEDS: amLODIPine 2.5MG (NORVASC) TAB PO SCH (08:36)
[2021-09-16] MEDS: lisINopril 40 MG (PRINIVIL) TABLET PO SCH (08:36)
[2021-09-16] MEDS: MELOXICAM 15 MG PO SCH (08:37)
--- NOTE | 2021-09-16 09:45 | Diagnostic Imaging Report ---
EXAMINATION: Chest 2 view HISTORY: Followup pneumothorax. COMPARISON: 09/15/2021. FINDINGS: Stable configuration of the left port and left-sided chest tube. Stable small left-sided pneumothorax. No evidence of mediastinal shift. There is interval increase in a small to moderate right pleural effusion. Small amount of bibasilar opacities are present. The cardiac silhouette is unchanged. No acute osseous abnormalities. IMPRESSION: 1. Stable small left-sided pneumothorax with stable left-sided chest tube. 2. Interval increase in small to moderate right pleural effusion. Bibasilar opacities are similar. Dictated by: Dictated on workstation # [id number]
--- NOTE | 2021-09-16 10:42 | Progress Note ---
Subjective Date Seen by a Provider: Sep 16, 2021 Time Seen by a Provider: 10:00 Subjective/Events-last exam doing ok. no SOB. very small residual ptx. Objective Exam Vital Signs Date Time Temp Pulse Resp B/P (MAP) Pulse Ox O2 Delivery O2 Flow Rate FiO2 09/16/21 09:03 36.9 96 95 09/16/21 08:33 95 Room Air 09/16/21 08:00 36.6 73 18 183/75 (111) 94 Nasal Cannula 2.00 09/16/21 08:00 Room Air 09/16/21 04:26 36.9 70 18 165/77 (106) 96 Nasal Cannula 2.00 09/16/21 03:39 97 Nasal Cannula 1.50 09/16/21 00:08 36.9 80 18 163/71 (101) 96 Nasal Cannula 2.00 09/15/21 22:27 37.0 84 18 174/80 (111) 96 Nasal Cannula 2.00 09/15/21 21:44 96 Nasal Cannula 1.50 09/15/21 20:00 Room Air 2.00 09/15/21 20:00 37.7 81 20 187/90 (122) 98 Nasal Cannula 2.00 09/15/21 16:00 37.4 81 20 189/87 (121) 98 Nasal Cannula 2.00 09/15/21 14:37 96 09/15/21 11:40 36.4 86 16 184/91 (122) 98 Nasal Cannula 2.00 I & O 09/16/21 07:00 Intake Total 2120 ml Output Total 0 ml Balance 2120 ml Capillary Refill : General Appearance: No Apparent Distress HEENT: PERRL/EOMI Neck: Full Range of Motion Respiratory: Chest Non Tender, Lungs Clear Cardiovascular: Regular Rate, Rhythm Gastrointestinal: normal bowel sounds, non tender, soft Extremity: Normal Capillary Refill Neurologic/Psychiatric: Alert, Oriented x3 Skin: Normal Color Lymphatic: No Adenopathy Assessment/Plan Assessment/Plan Assess & Plan/Chief Complaint left PTX. continue CT. place back to seal and get f/u cxr may shower. TUNDE GUEVARA MD Sep 16, 2021 10:42
[2021-09-16] MEDS ORDERED: SALINE NASAL SPRAY (OCEAN) 45 ML BTL PRN (11:15)
[2021-09-16] MEDS ORDERED: CHLORASEPTIC LOZENGE MM PRN (11:15)
--- NOTE | 2021-09-16 12:24 | Discharge Inst-Surgical ---
D/C Lap Instructions-PAOLA Follow Up Appt Activity as tolerated F/U cxr sunday(09/20) Regular Diet Symptoms to Report: Fever over 101 degree F, Nausea/Vomiting Infection Signs and Symptoms to report: Increased redness, Foul odor of wound, Increased drainage Bathing instructions: May shower Operative Area Clean/Dry; Keep incision clean/dry If any problems/questions: Contact your physician or go to Emergency Room TUNDE GUEVARA MD Sep 16, 2021 12:24
--- NOTE | 2021-09-16 17:17 | Diagnostic Imaging Report ---
INDICATION: Pneumothorax. EXAMINATION: Frontal chest was obtained at 4:14 p.m. COMPARISON: Same day at 9:31 a.m. FINDINGS: Left-sided Port-A-Cath is unchanged. Small caliber chest tube over the left lung base is unchanged, its tip appears to be just into the left pleural space. There is a small left apical pneumothorax which is minimally decreased compared to earlier today. There is some mild bibasilar atelectasis with small right pleural effusion. IMPRESSION: Left apical pneumothorax is present which is fairly small and is slightly decreased compared to earlier today. There is mild bibasilar atelectasis with small right pleural effusion. Left-sided pleural catheter is seen which has its tip probably just into the left pleural space. Dictated by: Dictated on workstation # [id number]
[2021-09-16] MEDS: ENALAPRIL 5 MG (VASOTEC) TAB PO PRN (20:58)
[2021-09-16] MEDS: AtorvaSTATin TABLET 10 MG TABLET PO SCH (20:59)
[2021-09-16] MEDS: ALPRAZolam 0.5 MG (XANAX) TAB PO PRN (21:01)
[2021-09-17] VITALS: BP 135/85
[2021-09-17] MEDS: RT-ALBUTEROL/IPRATROPIUM 3 ML (DUONEB) VIAL INH SCH ×2 (02:42→09:37)
[2021-09-17 03:54] VITALS: BP 160/70
[2021-09-17] MEDS: PANTOPRAZOLE 40 MG (PROTONIX) TAB PO SCH (06:49)
--- NOTE | 2021-09-17 06:50 | Diagnostic Imaging Report ---
Indication: Left pneumothorax follow-up Comparison the previous day. There continues to be a small left pneumothorax. Currently measures 12 mm. Left subclavian Port-A-Cath tip projects over the SVC. Lungs are clear. There may be tiny right pleural effusion. There is a left thoracostomy tube. IMPRESSION: Small left pneumothorax appears unchanged compared to previous day. Dictated by: Dictated on workstation # [id number]
[2021-09-17 08:30] VITALS: BP 116/68
[2021-09-17] MEDS: amLODIPine 2.5MG (NORVASC) TAB PO SCH (08:55)
[2021-09-17] MEDS: lisINopril 40 MG (PRINIVIL) TABLET PO SCH (08:55)
[2021-09-17] MEDS: MELOXICAM 15 MG PO SCH (08:56)
--- NOTE | 2021-09-17 11:09 | Progress Note ---
Subjective Date Seen by a Provider: Sep 17, 2021 Time Seen by a Provider: 10:00 Subjective/Events-last exam Patient seen with Dr. Erazo. Patient reports doing ok and would like to go home. Denies any SOB or difficulty breathing. Tolerating diet. Objective Exam Vital Signs Date Time Temp Pulse Resp B/P (MAP) Pulse Ox O2 Delivery O2 Flow Rate FiO2 09/17/21 09:41 95 Room Air 09/17/21 08:30 35.6 77 16 116/68 (84) 95 Room Air 09/17/21 08:00 Room Air 09/17/21 03:54 36.3 72 17 160/70 (100) 96 Room Air 09/17/21 02:42 95 Room Air 09/17/21 00:00 36.7 77 18 135/85 (102) 96 Room Air 09/16/21 22:06 96 Room Air 09/16/21 20:00 Room Air 09/16/21 19:32 36.6 79 19 189/86 (120) 97 Room Air 09/16/21 15:51 36.8 78 20 175/83 (113) 96 Room Air 09/16/21 15:24 97 Room Air 09/16/21 12:00 35.8 74 18 182/69 (106) 96 Nasal Cannula 2.00 I & O 09/17/21 07:00 Intake Total 1100 ml Output Total 4 ml Balance 1096 ml Capillary Refill : General Appearance: No Apparent Distress, WD/WN Neck: Normal Inspection, Supple Respiratory: No Accessory Muscle Use, No Respiratory Distress Cardiovascular: Regular Rate, Rhythm, No Edema Gastrointestinal: normal bowel sounds, non tender, soft Extremity: Normal Inspection, Normal Range of Motion Neurologic/Psychiatric: Alert, Oriented x3 Skin: Normal Color, Warm/Dry Assessment/Plan Assessment/Plan Assess & Plan/Chief Complaint An 80 year old female with a left PTX. Chest x-ray this AM small left PTX Will DC CT - will repeat chest x-ray this afternoon, possible DC home today if chest x-ray ok. KARINE RIZVI APRN Sep 17, 2021 11:09
[2021-09-17] MEDS: fentaNYL INJ 100 MCG/2 ML AMP IV PRN (11:13)
[2021-09-17 11:41] VITALS: BP 126/86
--- NOTE | 2021-09-17 13:48 | Diagnostic Imaging Report ---
CHEST 1 VIEW, AP/PA ONLY Indication: Chest tube removal Comparison: Earlier same day at 0541 hours. Findings: Left chest tube has been removed. The left apical pneumothorax persists but has decreased in size now measuring approximately 0.6 cm (previously 1.2 cm). Stable small bilateral pleural effusions. No right-sided pneumothorax. Stable left subclavian Port-A-Cath. Stable cardiac silhouette. Impression: 1. Decreased size but persistence of left apical pneumothorax status post chest tube removal. Dictated by: Dictated on workstation # [id number]
[2021-09-17 14:47] VITALS: BP 126/86
== END 2021-09-17 15:05 | disposition home or self-care (01) | DRG 201 ==
LOC: ER FS 15:34 → EDUNIT# 15:34 → 4TH 18:16 → OBSVTOIN 09-15 10:14
PROVIDERS: ADMIT Surgery; ATTEND Surgery
PROC: 0W9B30Z Drainage of Left Pleural Cavity with Drainage Device, Percutaneous Approach (ICD-10-PCS; principal; 2021-09-15)
DX: J93.9 Pneumothorax, unspecified (principal); E78.00 Pure hypercholesterolemia, unspecified; I10 Essential (primary) hypertension; G62.9 Polyneuropathy, unspecified; K21.9 Gastro-esophageal reflux disease without esophagitis; M19.90 Unspecified osteoarthritis, unspecified site; Z79.899 Other long term (current) drug therapy; Z85.820 Personal history of malignant melanoma of skin; Z85.43 Personal history of malignant neoplasm of ovary; Z92.21 Personal history of antineoplastic chemotherapy
CPT/HCPCS: 71045; 71046; 94640; 94664; 94760; 99284; G0378

== ENCOUNTER → 2021-09-13 | Outpatient (CLI) | payer MEDICARE ==
[~2021-09-13] MED LIST changes: +ACET-2267 PO; +ALPR0.5T7 PO; +DIPH25CA79 PO; +GABA300C PO; +HYDR25TA4 PO; +LACT1CAP39 PO
--- NOTE | 2021-09-13 10:47 | Diagnostic Imaging Report ---
INDICATION: Followup port placement. FINDINGS: The pneumothorax on the left has increased since the previous day's exam. The apical component now measures 6 cm. There are moderate bilateral pleural effusions present as well. The right lung is well-aerated. The heart is not enlarged. The Port-A-Cath on the left is again demonstrated in good position. IMPRESSION: 1. The pneumothorax has increased on the left and is now estimated to be approximately 30%. 2. Increasing bilateral pleural effusions. Dictated by: Dictated on workstation # [id number]
--- NOTE | 2021-09-13 18:25 | HISTORY AND PHYSICAL ---
DATE OF SERVICE: ATTENDING PRIMARY CARE PHYSICIAN: Dr. Caitie Olson. HISTORY OF PRESENT ILLNESS: The patient is an 80-year-old female known to us. She was initially referred over to us for left abdominal mass identified on CT scan. She did undergo an ultrasound, which did confirm a complex cystic and solid lesion of the ovary and there was also omental caking around the region consistent with an ovarian cancer with metastatic disease. A CT-guided biopsy was done on 05/30/2019, which did come back consistent with a metastatic adenocarcinoma of gynecologic origin. We had placed an original Groshong implantable catheter an 06/19/2019. She has lost a significant amount of weight for this maintenance chemotherapy and the overlying skin has become very thin and irritated; however, there were no signs of infection. On 09/09/2021, she underwent removal and replacement of the left subclavian Groshong implantable catheter with a low profile port. She did well after the surgery. The postoperative chest x-ray did show a very small pneumothorax. She was asymptomatic at that time and discharged home and a followup x-ray was ordered for today. The x-ray was performed, which did show an increase in the pneumothorax to 30%. She is currently comfortable and only reports some exertional shortness of breath. We will admit her, proceed with supplemental oxygen and also proceed with a Thora-Vent placement. PAST MEDICAL HISTORY: Metastatic ovarian cancer, hypertension, hypercholesterolemia, history of melanoma, degenerative joint disease. PAST SURGICAL HISTORY: Partial hysterectomy, right upper extremity wide excision melanoma as well as skin graft 40 years ago, placement of a left subclavian Groshong catheter 06/2019, removal and replacement 09/09/2021. ALLERGIES: No known drug allergies. MEDICATIONS: Lisinopril 40 mg daily, hydrochlorothiazide 25 mg daily, gabapentin at bedtime, Protonix 40 mg daily, atorvastatin 10 mg daily. SOCIAL HISTORY: Negative smoke. Rare alcohol. FAMILY HISTORY: Mother, non-Hodgkin's lymphoma. Father, leukemia, myocardial infarction, age 72. VITAL SIGNS: Stable. Blood pressure 142/80, current weight 127 pounds at 5 feet 2 inches. REVIEW OF SYSTEMS: Well-nourished female, in no acute distress. She is not experiencing any shortness of breath or difficulty breathing. No chest pain, palpitations, diaphoresis. No nausea, vomiting. No diarrhea or constipation. No red blood per rectum, no dark tarry stools. No fever, chills. No recent inadvertent weight loss. PHYSICAL EXAMINATION: CHEST: Decreased breath sounds left lung apex. HEART: Regular, no murmurs. EXTREMITIES: No lower extremity edema, negative Homans sign. HEENT: No scleral icterus. NECK: No cervical lymphadenopathy. ABDOMEN: Soft, nontender, nondistended. SKIN: Warm, dry. ASSESSMENT AND PLAN: An 80-year-old female with a left pneumothorax, status post removal and replacement of a Groshong implantable catheter. We will admit her and proceed with supplemental oxygen and p.r.n. pain medications and also proceed with placement of the foramen to evacuate the pneumothorax. Job ID: [id number] DocumentID: [id number] Dictated Date: 09/13/2021 18:04:46 Coil Strapper Date: 09/13/2021 18:24:30 Dictated By: TUNDE GUEVARA MD
== END ==
LOC: RAD FS 10:19
PROVIDERS: ATTEND Surgery
DX: J95.811 Postprocedural pneumothorax (principal); J90 Pleural effusion, not elsewhere classified; Z95.828 Presence of other vascular implants and grafts
CPT/HCPCS: 71045

== ENCOUNTER → 2021-09-20 | Outpatient (CLI) | payer MEDICARE ==
[~2021-09-20] MED LIST changes: +ACET-2267 PO; +ALPR0.5T7 PO; +DIPH25CA79 PO; +GABA300C PO; +HYDR25TA4 PO; +LACT1CAP39 PO
--- NOTE | 2021-09-20 13:49 | Diagnostic Imaging Report ---
EXAMINATION: Portable erect AP chest at 11:21 a.m. INDICATION: Left pneumothorax. FINDINGS: The previous exam of 09/17/2021 noted a small apical pneumothorax on the left. On this exam, however, there is minimal if any residual free air still present in the left thorax. Also, the left lung base does seem better aerated than on the prior exam. However, there is still some residual atelectasis/infiltrate and fluid involving both lung bases. The lungs are otherwise clear. The heart is stable in size. The mediastinum is not widened. The osseous structures are intact. The left-sided Port-A-Cath seen previously remains in good position. IMPRESSION: The appearance of the chest has improved since the prior exam as the small apical pneumothorax on the left has nearly completely if not completely resolved. The left lung base also seems better aerated. A follow-up study would be recommended for continued evaluation. Dictated by: Dictated on workstation # [id number]
== END ==
LOC: RAD FS 11:04
PROVIDERS: ATTEND Surgery
DX: J93.9 Pneumothorax, unspecified (principal)
CPT/HCPCS: 71045

== ENCOUNTER 2021-09-22 13:42 | Outpatient (RCR) | payer MEDICARE ==
[2021-06-30 13:22] LABS: BASOPHILS % (AUTO) 1 % (0-10); EOSINOPHILS # (AUTO) 0.1 10^3/uL (0.0-0.3); EOSINOPHILS % (AUTO) 2 % (0-10); HEMATOCRIT 32 % (35-52); HEMOGLOBIN 10.1 g/dL (11.5-16.0); LYMPHOCYTES # (AUTO) 2.3 10^3/uL (1.0-4.0); LYMPHOCYTES % (AUTO) 36 % (12-44); MEAN CORPUSCULAR HEMOGLOBIN 32 pg (25-34); MEAN CORPUSCULAR HGB CONC 32 g/dL (32-36); MEAN CORPUSCULAR VOLUME 99 fL (80-99); MEAN PLATELET VOLUME 9.4 fL (9.0-12.2); MONOCYTES # (AUTO) 0.5 10^3/uL (0.0-1.0); MONOCYTES % (AUTO) 8 % (0-12); NEUTROPHILS # (AUTO) 3.4 10^3/uL (1.8-7.8); NEUTROPHILS % (AUTO) 53 % (42-75); PLATELET COUNT 170 10^3/uL (130-400); WHITE BLOOD COUNT 6.3 10^3/uL (4.3-11.0)
[2021-06-30 13:45] LABS: ALBUMIN 3.5 GM/DL (3.2-4.5); BILIRUBIN,TOTAL 0.3 MG/DL (0.1-1.0); CALCIUM 9.8 MG/DL (8.5-10.1); CREATININE SERUM 1.25 MG/DL (0.60-1.30); POTASSIUM 4.4 MMOL/L (3.6-5.0); TOTAL PROTEIN 6.4 GM/DL (6.4-8.2)
[2021-07-20 11:29] LABS: BASOPHILS % (AUTO) 1 % (0-10); EOSINOPHILS # (AUTO) 0.1 10^3/uL (0.0-0.3); EOSINOPHILS % (AUTO) 2 % (0-10); HEMATOCRIT 34 % (35-52); HEMOGLOBIN 10.8 g/dL (11.5-16.0); LYMPHOCYTES # (AUTO) 1.8 10^3/uL (1.0-4.0); LYMPHOCYTES % (AUTO) 33 % (12-44); MEAN CORPUSCULAR HEMOGLOBIN 31 pg (25-34); MEAN CORPUSCULAR HGB CONC 32 g/dL (32-36); MEAN CORPUSCULAR VOLUME 98 fL (80-99); MEAN PLATELET VOLUME 9.2 fL (9.0-12.2); MONOCYTES # (AUTO) 0.6 10^3/uL (0.0-1.0); MONOCYTES % (AUTO) 10 % (0-12); NEUTROPHILS % (AUTO) 55 % (42-75); PLATELET COUNT 175 10^3/uL (130-400); WHITE BLOOD COUNT 5.5 10^3/uL (4.3-11.0)
[2021-07-20 11:47] LABS: ALBUMIN 3.6 GM/DL (3.2-4.5); BILIRUBIN,TOTAL 0.3 MG/DL (0.1-1.0); CALCIUM 10.1 MG/DL (8.5-10.1); CREATININE SERUM 1.05 MG/DL (0.60-1.30); POTASSIUM 4.4 MMOL/L (3.6-5.0); TOTAL PROTEIN 6.2 GM/DL (6.4-8.2)
[2021-08-09 13:16] LABS: BASOPHILS # (AUTO) 0.1 10^3/uL (0.0-0.1); BASOPHILS % (AUTO) 1 % (0-10); EOSINOPHILS # (AUTO) 0.2 10^3/uL (0.0-0.3); EOSINOPHILS % (AUTO) 3 % (0-10); HEMATOCRIT 33 % (35-52); HEMOGLOBIN 10.4 g/dL (11.5-16.0); LYMPHOCYTES # (AUTO) 2.9 10^3/uL (1.0-4.0); LYMPHOCYTES % (AUTO) 41 % (12-44); MEAN CORPUSCULAR HEMOGLOBIN 30 pg (25-34); MEAN CORPUSCULAR HGB CONC 32 g/dL (32-36); MEAN CORPUSCULAR VOLUME 95 fL (80-99); MEAN PLATELET VOLUME 9.5 fL (9.0-12.2); MONOCYTES # (AUTO) 0.6 10^3/uL (0.0-1.0); MONOCYTES % (AUTO) 9 % (0-12); NEUTROPHILS # (AUTO) 3.4 10^3/uL (1.8-7.8); NEUTROPHILS % (AUTO) 47 % (42-75); PLATELET COUNT 181 10^3/uL (130-400); WHITE BLOOD COUNT 7.2 10^3/uL (4.3-11.0)
[2021-08-09 13:32] LABS: ALBUMIN 3.6 GM/DL (3.2-4.5); BILIRUBIN,TOTAL 0.2 MG/DL (0.1-1.0); CALCIUM 9.8 MG/DL (8.5-10.1); CREATININE SERUM 0.94 MG/DL (0.60-1.30); POTASSIUM 4.6 MMOL/L (3.6-5.0); TOTAL PROTEIN 6.4 GM/DL (6.4-8.2)
[~2021-09-22] VITALS: Ht 154.9 cm; Wt 59.0 kg
[~2021-09-22 13:42] MED LIST changes: +BEVACIZUMAB BVZR IV SCH; +NS IV 1000 ML (CANCER CTR) IV SCH; +NS IV 500 ML (CANCER CENTER) IV SCH; +NS IV SCH
[2021-09-22 14:29] LABS: BASOPHILS # (AUTO) 0.1 10^3/uL (0.0-0.1); BASOPHILS % (AUTO) 1 % (0-10); EOSINOPHILS # (AUTO) 0.6 10^3/uL (0.0-0.3); EOSINOPHILS % (AUTO) 5 % (0-10); HEMATOCRIT 35 % (35-52); HEMOGLOBIN 11.1 g/dL (11.5-16.0); LYMPHOCYTES % (AUTO) 29 % (12-44); MEAN CORPUSCULAR HEMOGLOBIN 30 pg (25-34); MEAN CORPUSCULAR HGB CONC 32 g/dL (32-36); MEAN CORPUSCULAR VOLUME 92 fL (80-99); MEAN PLATELET VOLUME 9.4 fL (9.0-12.2); MONOCYTES # (AUTO) 0.8 10^3/uL (0.0-1.0); MONOCYTES % (AUTO) 7 % (0-12); NEUTROPHILS # (AUTO) 6.1 10^3/uL (1.8-7.8); NEUTROPHILS % (AUTO) 58 % (42-75); PLATELET COUNT 260 10^3/uL (130-400); WHITE BLOOD COUNT 10.6 10^3/uL (4.3-11.0)
[2021-09-22 14:51] LABS: ALBUMIN 3.3 GM/DL (3.2-4.5); BILIRUBIN,TOTAL 0.3 MG/DL (0.1-1.0); CALCIUM 9.2 MG/DL (8.5-10.1); CREATININE SERUM 0.92 MG/DL (0.60-1.30); POTASSIUM 4.3 MMOL/L (3.6-5.0); TOTAL PROTEIN 6.2 GM/DL (6.4-8.2)
== END 2021-09-28 | disposition home or self-care (01) ==
LOC: ONC 13:42
PROVIDERS: ATTEND Internal Medicine Hematology & Oncology
DX: Z51.11 Encounter for antineoplastic chemotherapy (principal); Z45.2 Encounter for adjustment and management of vascular access device; C48.2 Malignant neoplasm of peritoneum, unspecified; C56.2 Malignant neoplasm of left ovary; C78.6 Secondary malignant neoplasm of retroperitoneum and peritoneum; K57.90 Diverticulosis of intestine, part unspecified, without perforation or abscess without bleeding; I10 Essential (primary) hypertension; E78.2 Mixed hyperlipidemia; R73.9 Hyperglycemia, unspecified; Z92.21 Personal history of antineoplastic chemotherapy; Z85.820 Personal history of malignant melanoma of skin; Z80.9 Family history of malignant neoplasm, unspecified; Z79.899 Other long term (current) drug therapy
CPT/HCPCS: 80053; 85025; 86304; 96413; G0463; 36591; 82570; 84156

== ENCOUNTER → 2021-09-23 | Outpatient (CLI) | payer MEDICARE ==
[~2021-09-23] MED LIST changes: -BEVACIZUMAB BVZR IV SCH; -NS IV 1000 ML (CANCER CTR) IV SCH; -NS IV 500 ML (CANCER CENTER) IV SCH; -NS IV SCH
--- NOTE | 2021-09-23 11:58 | Diagnostic Imaging Report ---
INDICATION: Pneumothorax COMPARISON: 09/16/2021 FINDINGS: Frontal and lateral views of the chest demonstrate interval removal of the small pigtail catheter in the left base. Trace insignificant pneumothorax does persist on the left. There are small bilateral pleural effusions with dependent atelectasis. The heart is normal. IMPRESSION: Trace insignificant left-sided pneumothorax. Dictated by: Dictated on workstation # [id number]
== END ==
LOC: RAD FS 10:27
PROVIDERS: ATTEND Surgery
DX: J93.9 Pneumothorax, unspecified (principal)
CPT/HCPCS: 71046

== ENCOUNTER → 2021-10-21 | Outpatient (CLI) | payer MEDICARE ==
[~2021-10-21] MED LIST changes: +BARIUM SUSPENSION 2.1% (VANILLA SILQ) 450 ML PO ONE; +CATHETER FLUSH 10 ML SYR IV PRN; +HOLD METFORMIN - RECEIVED CONTRAST 20 ML VIAL IV SCH; +IOHEXOL 350 MG/ML 100 ML (OMNIPAQUE 350) VIAL IV ONE; +NS 100 ML (IVPB) BAG IV ONE
--- NOTE | 2021-10-21 11:35 | Diagnostic Imaging Report ---
PROCEDURE: CT chest, abdomen, and pelvis with contrast. TECHNIQUE: Multiple contiguous axial images were obtained through the chest, abdomen, and pelvis after the administration of intravenous contrast. Auto Exposure Controls were utilized during the CT exam to meet ALARA standards for radiation dose reduction. INDICATION: Ovarian cancer, follow-up. Correlation is made with prior CT from 08/30/2021. CT CHEST: Left chest wall port is in place. There is no axillary lymphadenopathy. No mediastinal or hilar lymphadenopathy is identified. Moderate right and small left pleural effusion appears similar to prior exam. No pulmonary nodules or masses are seen. There is some compressive atelectasis bilateral lower lobes. CT abdomen and pelvis: No discrete liver mass is identified. Gallbladder is unremarkable. There is no biliary duct dilatation. Pancreas and spleen are unremarkable. No adrenal mass is identified. Kidneys are unremarkable. Aorta is nonaneurysmal. No central retroperitoneal or mesenteric lymphadenopathy is detected. The small and large bowel loops are normal caliber. There is no obstruction. No free fluid in the abdomen is identified. There is some free fluid in the pelvis, similar to perhaps slightly increased when compared with prior exam. The bladder is unremarkable. No pelvic lymphadenopathy is identified. There does appear to be some soft tissue thickening in presacral region, similar to prior exam and likely post-therapeutic. IMPRESSION: Overall stable CT chest, abdomen and pelvis were compared with prior study from 08/30/2021. No definite findings to suggest metastatic disease are identified. Bilateral effusions, right greater are stable. There is some ascites in the pelvis which also appears to be similar to prior exam. Dictated by: Dictated on workstation # [id number]
== END ==
LOC: RAD FS 10:02
PROVIDERS: ATTEND Internal Medicine Hematology & Oncology
DX: C56.3 Malignant neoplasm of bilateral ovaries (principal)
CPT/HCPCS: 71260; 74177

== ENCOUNTER → 2021-11-01 | Outpatient (CLI) | payer MEDICARE ==
[~2021-11-01] MED LIST changes: -BARIUM SUSPENSION 2.1% (VANILLA SILQ) 450 ML PO ONE; -CATHETER FLUSH 10 ML SYR IV PRN; -HOLD METFORMIN - RECEIVED CONTRAST 20 ML VIAL IV SCH; -IOHEXOL 350 MG/ML 100 ML (OMNIPAQUE 350) VIAL IV ONE; -NS 100 ML (IVPB) BAG IV ONE
[2021-11-01 13:00] LABS: ALBUMIN 3.8 GM/DL (3.2-4.5); BILIRUBIN,TOTAL 0.3 MG/DL (0.1-1.0); CALCIUM 9.8 MG/DL (8.5-10.1); CREATININE SERUM 1.02 MG/DL (0.60-1.30); TOTAL PROTEIN 6.9 GM/DL (6.4-8.2)
== END ==
LOC: LAB FS 10:10
PROVIDERS: ATTEND Family Medicine
DX: E78.5 Hyperlipidemia, unspecified (principal)
CPT/HCPCS: 36415; 80053; 80061

== ENCOUNTER 2021-11-10 09:53 | Outpatient (RCR) | payer MEDICARE ==
[2021-11-03 14:41] LABS: BASOPHILS % (AUTO) 0 % (0-10); EOSINOPHILS % (AUTO) 0 % (0-10); HEMATOCRIT 36 % (35-52); HEMOGLOBIN 11.7 g/dL (11.5-16.0); LYMPHOCYTES # (AUTO) 1.6 10^3/uL (1.0-4.0); LYMPHOCYTES % (AUTO) 11 % (12-44); MEAN CORPUSCULAR HEMOGLOBIN 30 pg (25-34); MEAN CORPUSCULAR HGB CONC 33 g/dL (32-36); MEAN CORPUSCULAR VOLUME 91 fL (80-99); MEAN PLATELET VOLUME 9.4 fL (9.0-12.2); MONOCYTES # (AUTO) 0.1 10^3/uL (0.0-1.0); MONOCYTES % (AUTO) 1 % (0-12); NEUTROPHILS # (AUTO) 12.5 10^3/uL (1.8-7.8); NEUTROPHILS % (AUTO) 87 % (42-75); PLATELET COUNT 246 10^3/uL (130-400); WHITE BLOOD COUNT 14.3 10^3/uL (4.3-11.0)
[~2021-11-10] VITALS: Ht 154.9 cm; Wt 57.6 kg
[~2021-11-10 09:53] MED LIST changes: +FAMOTIDINE 20MG/2ML IV (CANCER CTR) IV SCH; +NS IV 1000 ML (CANCER CTR) IV SCH; +diphenhydrAMINE 25 MG TAB (BENADRYL) CANCER CENTER PO SCH; +diphenhydrAMINE 50 MG/ML INJ (CANCER CENTER) IV PRN
[2021-11-10 10:12] LABS: BASOPHILS % (AUTO) 0 % (0-10); EOSINOPHILS % (AUTO) 0 % (0-10); HEMATOCRIT 35 % (35-52); HEMOGLOBIN 11.3 g/dL (11.5-16.0); LYMPHOCYTES # (AUTO) 0.7 10^3/uL (1.0-4.0); LYMPHOCYTES % (AUTO) 15 % (12-44); MEAN CORPUSCULAR HEMOGLOBIN 30 pg (25-34); MEAN CORPUSCULAR HGB CONC 32 g/dL (32-36); MEAN CORPUSCULAR VOLUME 92 fL (80-99); MEAN PLATELET VOLUME 9.9 fL (9.0-12.2); MONOCYTES % (AUTO) 0 % (0-12); NEUTROPHILS # (AUTO) 3.9 10^3/uL (1.8-7.8); NEUTROPHILS % (AUTO) 84 % (42-75); PLATELET COUNT 218 10^3/uL (130-400); WHITE BLOOD COUNT 4.7 10^3/uL (4.3-11.0)
[2021-11-10 10:41] LABS: CALCIUM 9.7 MG/DL (8.5-10.1); CREATININE SERUM 0.98 MG/DL (0.60-1.30); POTASSIUM 5.1 MMOL/L (3.6-5.0)
== END 2021-11-11 | disposition home or self-care (01) ==
LOC: ONC 09:53
PROVIDERS: ATTEND Internal Medicine Hematology & Oncology
DX: Z51.11 Encounter for antineoplastic chemotherapy (principal); Z45.2 Encounter for adjustment and management of vascular access device; C48.2 Malignant neoplasm of peritoneum, unspecified; C56.2 Malignant neoplasm of left ovary; C78.6 Secondary malignant neoplasm of retroperitoneum and peritoneum; K57.90 Diverticulosis of intestine, part unspecified, without perforation or abscess without bleeding; I10 Essential (primary) hypertension; E78.2 Mixed hyperlipidemia; R73.9 Hyperglycemia, unspecified; Z79.899 Other long term (current) drug therapy
CPT/HCPCS: 84156; 85025; 86304; 96375; 96413; G0463; 80048; 83735

== ENCOUNTER 2021-11-17 13:02 | Outpatient (RCR) | payer MEDICARE ==
[2021-11-17 13:30] LABS: BASOPHILS % (AUTO) 0 % (0-10); EOSINOPHILS % (AUTO) 0 % (0-10); HEMATOCRIT 34 % (35-52); HEMOGLOBIN 10.9 g/dL (11.5-16.0); LYMPHOCYTES # (AUTO) 1.3 10^3/uL (1.0-4.0); LYMPHOCYTES % (AUTO) 40 % (12-44); MEAN CORPUSCULAR HEMOGLOBIN 30 pg (25-34); MEAN CORPUSCULAR HGB CONC 32 g/dL (32-36); MEAN CORPUSCULAR VOLUME 92 fL (80-99); MEAN PLATELET VOLUME 9.4 fL (9.0-12.2); MONOCYTES # (AUTO) 0.1 10^3/uL (0.0-1.0); MONOCYTES % (AUTO) 3 % (0-12); NEUTROPHILS # (AUTO) 1.8 10^3/uL (1.8-7.8); NEUTROPHILS % (AUTO) 56 % (42-75); PLATELET COUNT 283 10^3/uL (130-400); WHITE BLOOD COUNT 3.3 10^3/uL (4.3-11.0)
[2021-11-17 13:48] LABS: CALCIUM 9.5 MG/DL (8.5-10.1); CREATININE SERUM 0.93 MG/DL (0.60-1.30); POTASSIUM 4.8 MMOL/L (3.6-5.0)
== END 2021-12-12 | disposition home or self-care (01) ==
LOC: ONC 13:02
PROVIDERS: ATTEND Internal Medicine Hematology & Oncology
DX: Z51.11 Encounter for antineoplastic chemotherapy (principal); Z45.2 Encounter for adjustment and management of vascular access device; C48.2 Malignant neoplasm of peritoneum, unspecified; C56.2 Malignant neoplasm of left ovary; C78.6 Secondary malignant neoplasm of retroperitoneum and peritoneum; K57.90 Diverticulosis of intestine, part unspecified, without perforation or abscess without bleeding; I10 Essential (primary) hypertension; E78.2 Mixed hyperlipidemia; R73.9 Hyperglycemia, unspecified; Z79.899 Other long term (current) drug therapy
CPT/HCPCS: 80048; 83735; 85025; 96375; 96413

== ENCOUNTER → 2021-11-24 | Outpatient (CLI) | payer MEDICARE ==
[~2021-11-24] MED LIST changes: -FAMOTIDINE 20MG/2ML IV (CANCER CTR) IV SCH; -NS IV 1000 ML (CANCER CTR) IV SCH; -diphenhydrAMINE 25 MG TAB (BENADRYL) CANCER CENTER PO SCH; -diphenhydrAMINE 50 MG/ML INJ (CANCER CENTER) IV PRN
[2021-11-24 11:00] LABS: HEMATOCRIT 34 % (35-52); HEMOGLOBIN 10.8 g/dL (11.5-16.0); MEAN CORPUSCULAR HEMOGLOBIN 30 pg (25-34); MEAN CORPUSCULAR HGB CONC 32 g/dL (32-36); MEAN CORPUSCULAR VOLUME 93 fL (80-99); MEAN PLATELET VOLUME 9.2 fL (9.0-12.2); PLATELET COUNT 328 10^3/uL (130-400)
[2021-11-24 11:01] LABS: BASOPHILS % (AUTO) 1 % (0-10); EOSINOPHILS % (AUTO) 2 % (0-10); LYMPHOCYTES % (AUTO) 49 % (12-44); MONOCYTES % (AUTO) 7 % (0-12); NEUTROPHILS % (AUTO) 40 % (42-75)
[2021-11-24 11:02] LABS: EOSINOPHILS # (AUTO) 0.1 10^3/uL (0.0-0.3); MONOCYTES # (AUTO) 0.3 X 10^3 (0.0-1.0); NEUTROPHILS # (AUTO) 1.6 X 10^3 (1.8-7.8)
[2021-11-24 11:35] LABS: POTASSIUM 4.3 MMOL/L (3.6-5.0)
[2021-11-24 11:36] LABS: CALCIUM 9.3 MG/DL (8.5-10.1); CREATININE SERUM 1.03 MG/DL (0.60-1.30); MAGNESIUM 1.8 MG/DL (1.6-2.4)
== END ==
LOC: LAB FS 10:39
PROVIDERS: ATTEND Nurse Practitioner Adult Health
DX: C56.2 Malignant neoplasm of left ovary (principal)
CPT/HCPCS: 36415; 80048; 83735; 85025

== ENCOUNTER → 2021-12-22 | Outpatient (CLI) | payer MEDICARE ==
[2021-12-22 11:23] LABS: BASOPHILS # (AUTO) 0.1 10^3/uL (0.0-0.1); BASOPHILS % (AUTO) 1 % (0-10); EOSINOPHILS # (AUTO) 0.1 10^3/uL (0.0-0.3); EOSINOPHILS % (AUTO) 2 % (0-10); HEMATOCRIT 30 % (35-52); HEMOGLOBIN 9.5 g/dL (11.5-16.0); LYMPHOCYTES # (AUTO) 1.7 10^3/uL (1.0-4.0); LYMPHOCYTES % (AUTO) 31 % (12-44); MEAN CORPUSCULAR HEMOGLOBIN 30 pg (25-34); MEAN CORPUSCULAR HGB CONC 32 g/dL (32-36); MEAN CORPUSCULAR VOLUME 93 fL (80-99); MEAN PLATELET VOLUME 9.6 fL (9.0-12.2); MONOCYTES # (AUTO) 0.3 10^3/uL (0.0-1.0); MONOCYTES % (AUTO) 6 % (0-12); NEUTROPHILS # (AUTO) 3.2 10^3/uL (1.8-7.8); NEUTROPHILS % (AUTO) 60 % (42-75); PLATELET COUNT 305 10^3/uL (130-400); WHITE BLOOD COUNT 5.3 10^3/uL (4.3-11.0)
[2021-12-22 12:59] LABS: CALCIUM 9.2 MG/DL (8.5-10.1); CREATININE SERUM 1.13 MG/DL (0.60-1.30); POTASSIUM 4.8 MMOL/L (3.6-5.0)
== END ==
LOC: LAB FS 10:54
PROVIDERS: ATTEND Internal Medicine Hematology & Oncology
DX: C48.2 Malignant neoplasm of peritoneum, unspecified (principal)
CPT/HCPCS: 36415; 80048; 85025

== ENCOUNTER → 2022-02-16 | Outpatient (CLI) | payer MEDICARE ==
[2022-02-16 12:48] LABS: BASOPHILS % (AUTO) 1 % (0-10); EOSINOPHILS # (AUTO) 0.1 10^3/uL (0.0-0.3); EOSINOPHILS % (AUTO) 1 % (0-10); HEMATOCRIT 27 % (35-52); HEMOGLOBIN 8.6 g/dL (11.5-16.0); LYMPHOCYTES # (AUTO) 2.5 10^3/uL (1.0-4.0); LYMPHOCYTES % (AUTO) 43 % (12-44); MEAN CORPUSCULAR HEMOGLOBIN 31 pg (25-34); MEAN CORPUSCULAR HGB CONC 33 g/dL (32-36); MEAN CORPUSCULAR VOLUME 94 fL (80-99); MEAN PLATELET VOLUME 9.2 fL (9.0-12.2); MONOCYTES # (AUTO) 0.4 10^3/uL (0.0-1.0); MONOCYTES % (AUTO) 7 % (0-12); NEUTROPHILS # (AUTO) 2.7 10^3/uL (1.8-7.8); NEUTROPHILS % (AUTO) 47 % (42-75); PLATELET COUNT 332 10^3/uL (130-400); WHITE BLOOD COUNT 5.7 10^3/uL (4.3-11.0)
[2022-02-16 13:37] LABS: CREATININE SERUM 1.48 MG/DL (0.60-1.30); POTASSIUM 4.5 MMOL/L (3.6-5.0)
[2022-02-16 13:38] LABS: CALCIUM 9.5 MG/DL (8.5-10.1)
== END ==
LOC: LAB FS 12:28
PROVIDERS: ATTEND Internal Medicine Hematology & Oncology
DX: Z51.11 Encounter for antineoplastic chemotherapy (principal); C48.2 Malignant neoplasm of peritoneum, unspecified; C78.6 Secondary malignant neoplasm of retroperitoneum and peritoneum
CPT/HCPCS: 36415; 80048; 85025

== ENCOUNTER → 2022-03-14 | Outpatient (CLI) | payer MEDICARE | LOC: LABNPT 14:49 | PROVIDERS: ATTEND Family Medicine | DX: L03.019 Cellulitis of unspecified finger (principal) | CPT/HCPCS: 87070; 87077; 87205 ==

== ENCOUNTER → 2022-03-16 | Outpatient (CLI) | payer MEDICARE ==
[2022-03-16 11:40] LABS: BASOPHILS % (AUTO) 1 % (0-10); EOSINOPHILS # (AUTO) 0.1 10^3/uL (0.0-0.3); EOSINOPHILS % (AUTO) 1 % (0-10); HEMATOCRIT 28 % (35-52); HEMOGLOBIN 8.8 g/dL (11.5-16.0); LYMPHOCYTES # (AUTO) 2.4 10^3/uL (1.0-4.0); LYMPHOCYTES % (AUTO) 38 % (12-44); MEAN CORPUSCULAR HEMOGLOBIN 30 pg (25-34); MEAN CORPUSCULAR HGB CONC 32 g/dL (32-36); MEAN CORPUSCULAR VOLUME 95 fL (80-99); MEAN PLATELET VOLUME 9.2 fL (9.0-12.2); MONOCYTES # (AUTO) 0.6 10^3/uL (0.0-1.0); MONOCYTES % (AUTO) 10 % (0-12); NEUTROPHILS % (AUTO) 49 % (42-75); PLATELET COUNT 334 10^3/uL (130-400); WHITE BLOOD COUNT 6.2 10^3/uL (4.3-11.0)
[2022-03-16 12:08] LABS: CALCIUM 9.8 MG/DL (8.5-10.1); CREATININE SERUM 1.59 MG/DL (0.60-1.30); POTASSIUM 5.1 MMOL/L (3.6-5.0)
== END ==
LOC: LAB FS 11:25
PROVIDERS: ATTEND Internal Medicine Hematology & Oncology
DX: Z51.11 Encounter for antineoplastic chemotherapy (principal); C48.2 Malignant neoplasm of peritoneum, unspecified; C78.6 Secondary malignant neoplasm of retroperitoneum and peritoneum
CPT/HCPCS: 36415; 80048; 85025

== ENCOUNTER → 2022-03-30 | Outpatient (CLI) | payer MEDICARE ==
[2022-03-30 12:21] LABS: BASOPHILS # (AUTO) 0.1 10^3/uL (0.0-0.1); BASOPHILS % (AUTO) 1 % (0-10); EOSINOPHILS # (AUTO) 0.1 10^3/uL (0.0-0.3); EOSINOPHILS % (AUTO) 2 % (0-10); HEMATOCRIT 28 % (35-52); HEMOGLOBIN 9.2 g/dL (11.5-16.0); LYMPHOCYTES # (AUTO) 2.8 10^3/uL (1.0-4.0); LYMPHOCYTES % (AUTO) 34 % (12-44); MEAN CORPUSCULAR HEMOGLOBIN 31 pg (25-34); MEAN CORPUSCULAR HGB CONC 33 g/dL (32-36); MEAN CORPUSCULAR VOLUME 93 fL (80-99); MEAN PLATELET VOLUME 8.7 fL (9.0-12.2); MONOCYTES % (AUTO) 13 % (0-12); NEUTROPHILS # (AUTO) 4.1 10^3/uL (1.8-7.8); NEUTROPHILS % (AUTO) 51 % (42-75); PLATELET COUNT 243 10^3/uL (130-400); WHITE BLOOD COUNT 8.1 10^3/uL (4.3-11.0)
[2022-03-30 12:55] LABS: CALCIUM 9.8 MG/DL (8.5-10.1); CREATININE SERUM 1.23 MG/DL (0.60-1.30); POTASSIUM 4.2 MMOL/L (3.6-5.0)
== END ==
LOC: LAB FS 12:04
PROVIDERS: ATTEND Internal Medicine Hematology & Oncology
DX: Z51.11 Encounter for antineoplastic chemotherapy (principal); C48.2 Malignant neoplasm of peritoneum, unspecified; C78.6 Secondary malignant neoplasm of retroperitoneum and peritoneum; G60.9 Hereditary and idiopathic neuropathy, unspecified
CPT/HCPCS: 36415; 80048; 85025

== ENCOUNTER → 2022-05-03 | Outpatient (CLI) | payer MEDICARE | LOC: CARD 13:30 | PROVIDERS: ATTEND Internal Medicine Cardiovascular Disease | DX: R06.09 Other forms of dyspnea (principal) | CPT/HCPCS: 93306 ==

== ENCOUNTER → 2022-05-12 | Outpatient (CLI) | payer MEDICARE ==
[~2022-05-12] VITALS: Ht 154 cm; Wt 62.0 kg
[~2022-05-12] MED LIST changes: +CATHETER FLUSH 10 ML SYR IVP PRN; +REGADENOSON 0.4 MG/5 ML SYR (LEXISCAN) IV ONE
[2022-05-12 09:29] VITALS: BP 208/100
== END ==
LOC: CARD 07:54
PROVIDERS: ATTEND Internal Medicine Cardiovascular Disease
DX: R06.09 Other forms of dyspnea (principal)
CPT/HCPCS: 78452; 93017; A9502

== ENCOUNTER → 2022-07-20 | Outpatient (CLI) | payer MEDICARE ==
[~2022-07-20] MED LIST changes: -CATHETER FLUSH 10 ML SYR IVP PRN; -REGADENOSON 0.4 MG/5 ML SYR (LEXISCAN) IV ONE
[2022-07-20 11:54] LABS: BASOPHILS % (AUTO) 0 % (0-10); EOSINOPHILS # (AUTO) 0.2 10^3/uL (0.0-0.3); EOSINOPHILS % (AUTO) 5 % (0-10); HEMATOCRIT 30 % (35-52); HEMOGLOBIN 9.7 g/dL (11.5-16.0); LYMPHOCYTES # (AUTO) 1.3 10^3/uL (1.0-4.0); LYMPHOCYTES % (AUTO) 37 % (12-44); MEAN CORPUSCULAR HEMOGLOBIN 29 pg (25-34); MEAN CORPUSCULAR HGB CONC 33 g/dL (32-36); MEAN CORPUSCULAR VOLUME 89 fL (80-99); MEAN PLATELET VOLUME 8.3 fL (9.0-12.2); MONOCYTES # (AUTO) 0.2 10^3/uL (0.0-1.0); MONOCYTES % (AUTO) 7 % (0-12); NEUTROPHILS # (AUTO) 1.8 10^3/uL (1.8-7.8); NEUTROPHILS % (AUTO) 50 % (42-75); PLATELET COUNT 259 10^3/uL (130-400); WHITE BLOOD COUNT 3.6 10^3/uL (4.3-11.0)
== END ==
LOC: LAB FS 11:41
PROVIDERS: ATTEND Internal Medicine Hematology & Oncology
DX: Z51.11 Encounter for antineoplastic chemotherapy (principal); C56.9 Malignant neoplasm of unspecified ovary; C78.6 Secondary malignant neoplasm of retroperitoneum and peritoneum
CPT/HCPCS: 36415; 85025

== ENCOUNTER 2022-07-27 13:57 | Outpatient (RCR) | payer MEDICARE ==
[2022-07-27 14:37] LABS: BASOPHILS % (AUTO) 0 % (0-10); EOSINOPHILS # (AUTO) 0.1 10^3/uL (0.0-0.3); EOSINOPHILS % (AUTO) 1 % (0-10); HEMATOCRIT 28 % (35-52); HEMOGLOBIN 9.1 g/dL (11.5-16.0); LYMPHOCYTES # (AUTO) 1.9 10^3/uL (1.0-4.0); LYMPHOCYTES % (AUTO) 26 % (12-44); MEAN CORPUSCULAR HEMOGLOBIN 29 pg (25-34); MEAN CORPUSCULAR HGB CONC 33 g/dL (32-36); MEAN CORPUSCULAR VOLUME 90 fL (80-99); MEAN PLATELET VOLUME 8.6 fL (9.0-12.2); MONOCYTES # (AUTO) 0.7 10^3/uL (0.0-1.0); MONOCYTES % (AUTO) 10 % (0-12); NEUTROPHILS # (AUTO) 4.6 10^3/uL (1.8-7.8); NEUTROPHILS % (AUTO) 63 % (42-75); PLATELET COUNT 230 10^3/uL (130-400); WHITE BLOOD COUNT 7.4 10^3/uL (4.3-11.0)
== END 2022-08-11 | disposition home or self-care (01) ==
LOC: LAB FS 13:57
PROVIDERS: ATTEND Internal Medicine Hematology & Oncology
DX: Z51.11 Encounter for antineoplastic chemotherapy (principal); C56.9 Malignant neoplasm of unspecified ovary; C78.6 Secondary malignant neoplasm of retroperitoneum and peritoneum
CPT/HCPCS: 36415; 85025

== ENCOUNTER 2022-08-10 11:39 | Outpatient (RCR) | payer MEDICARE ==
[2022-08-10 12:04] LABS: BASOPHILS % (AUTO) 0 % (0-10); EOSINOPHILS # (AUTO) 0.1 10^3/uL (0.0-0.3); EOSINOPHILS % (AUTO) 2 % (0-10); HEMATOCRIT 29 % (35-52); HEMOGLOBIN 9.7 g/dL (11.5-16.0); LYMPHOCYTES # (AUTO) 1.4 10^3/uL (1.0-4.0); LYMPHOCYTES % (AUTO) 43 % (12-44); MEAN CORPUSCULAR HEMOGLOBIN 29 pg (25-34); MEAN CORPUSCULAR HGB CONC 33 g/dL (32-36); MEAN CORPUSCULAR VOLUME 88 fL (80-99); MEAN PLATELET VOLUME 8.8 fL (9.0-12.2); MONOCYTES # (AUTO) 0.2 10^3/uL (0.0-1.0); MONOCYTES % (AUTO) 7 % (0-12); NEUTROPHILS # (AUTO) 1.6 10^3/uL (1.8-7.8); NEUTROPHILS % (AUTO) 47 % (42-75); PLATELET COUNT 241 10^3/uL (130-400); WHITE BLOOD COUNT 3.3 10^3/uL (4.3-11.0)
== END 2022-08-11 ==
LOC: LAB FS 11:39
PROVIDERS: ATTEND Internal Medicine Hematology & Oncology
DX: Z51.11 Encounter for antineoplastic chemotherapy (principal); C56.9 Malignant neoplasm of unspecified ovary; C78.6 Secondary malignant neoplasm of retroperitoneum and peritoneum
CPT/HCPCS: 36415; 85025

== ENCOUNTER 2022-08-17 13:21 | Outpatient (RCR) | payer MEDICARE ==
[2022-08-17 13:38] LABS: BASOPHILS % (AUTO) 0 % (0-10); EOSINOPHILS # (AUTO) 0.1 10^3/uL (0.0-0.3); EOSINOPHILS % (AUTO) 1 % (0-10); HEMATOCRIT 27 % (35-52); HEMOGLOBIN 8.7 g/dL (11.5-16.0); LYMPHOCYTES % (AUTO) 23 % (12-44); MEAN CORPUSCULAR HEMOGLOBIN 29 pg (25-34); MEAN CORPUSCULAR HGB CONC 33 g/dL (32-36); MEAN CORPUSCULAR VOLUME 89 fL (80-99); MEAN PLATELET VOLUME 8.7 fL (9.0-12.2); MONOCYTES # (AUTO) 1.1 10^3/uL (0.0-1.0); MONOCYTES % (AUTO) 13 % (0-12); NEUTROPHILS # (AUTO) 5.4 10^3/uL (1.8-7.8); NEUTROPHILS % (AUTO) 62 % (42-75); PLATELET COUNT 188 10^3/uL (130-400); WHITE BLOOD COUNT 8.8 10^3/uL (4.3-11.0)
== END 2022-09-11 | disposition home or self-care (01) ==
LOC: LAB FS 13:21
PROVIDERS: ATTEND Internal Medicine Hematology & Oncology
DX: C56.9 Malignant neoplasm of unspecified ovary (principal); C78.6 Secondary malignant neoplasm of retroperitoneum and peritoneum
CPT/HCPCS: 36415; 85025

== ENCOUNTER 2022-09-05 10:39 | Outpatient (RCR) | payer MEDICARE ==
[2022-09-05 11:17] LABS: BASOPHILS % (AUTO) 0 % (0-10); EOSINOPHILS # (AUTO) 0.1 10^3/uL (0.0-0.3); EOSINOPHILS % (AUTO) 1 % (0-10); HEMATOCRIT 27 % (35-52); HEMOGLOBIN 8.7 g/dL (11.5-16.0); LYMPHOCYTES # (AUTO) 1.6 10^3/uL (1.0-4.0); LYMPHOCYTES % (AUTO) 16 % (12-44); MEAN CORPUSCULAR HEMOGLOBIN 29 pg (25-34); MEAN CORPUSCULAR HGB CONC 32 g/dL (32-36); MEAN CORPUSCULAR VOLUME 91 fL (80-99); MEAN PLATELET VOLUME 10.4 fL (9.0-12.2); MONOCYTES # (AUTO) 1.1 10^3/uL (0.0-1.0); MONOCYTES % (AUTO) 11 % (0-12); NEUTROPHILS # (AUTO) 6.9 10^3/uL (1.8-7.8); NEUTROPHILS % (AUTO) 71 % (42-75); PLATELET COUNT 228 10^3/uL (130-400); WHITE BLOOD COUNT 9.7 10^3/uL (4.3-11.0)
[2022-09-05 11:39] LABS: CALCIUM 9.6 MG/DL (8.5-10.1); CREATININE SERUM 1.41 MG/DL (0.60-1.30)
== END 2022-09-11 | disposition home or self-care (01) ==
LOC: LAB FS 10:39
PROVIDERS: ATTEND Nurse Practitioner Adult Health
DX: C56.9 Malignant neoplasm of unspecified ovary (principal); C78.6 Secondary malignant neoplasm of retroperitoneum and peritoneum; G60.9 Hereditary and idiopathic neuropathy, unspecified; R97.8 Other abnormal tumor markers
CPT/HCPCS: 36415; 80048; 85025

== ENCOUNTER → 2022-09-12 | Outpatient (CLI) | payer MEDICARE ==
[2022-09-12 15:18] LABS: BASOPHILS % (AUTO) 1 % (0-10); EOSINOPHILS # (AUTO) 0.1 10^3/uL (0.0-0.3); EOSINOPHILS % (AUTO) 1 % (0-10); HEMATOCRIT 26 % (35-52); HEMOGLOBIN 8.5 g/dL (11.5-16.0); LYMPHOCYTES # (AUTO) 1.6 10^3/uL (1.0-4.0); LYMPHOCYTES % (AUTO) 20 % (12-44); MEAN CORPUSCULAR HEMOGLOBIN 30 pg (25-34); MEAN CORPUSCULAR HGB CONC 33 g/dL (32-36); MEAN CORPUSCULAR VOLUME 90 fL (80-99); MEAN PLATELET VOLUME 9.1 fL (9.0-12.2); MONOCYTES # (AUTO) 0.5 10^3/uL (0.0-1.0); MONOCYTES % (AUTO) 6 % (0-12); NEUTROPHILS % (AUTO) 72 % (42-75); PLATELET COUNT 296 10^3/uL (130-400); WHITE BLOOD COUNT 8.3 10^3/uL (4.3-11.0)
== END ==
LOC: LAB FS 14:56
PROVIDERS: ATTEND Nurse Practitioner Adult Health
DX: Z51.11 Encounter for antineoplastic chemotherapy (principal); C56.9 Malignant neoplasm of unspecified ovary; C78.6 Secondary malignant neoplasm of retroperitoneum and peritoneum; G60.9 Hereditary and idiopathic neuropathy, unspecified; R97.8 Other abnormal tumor markers
CPT/HCPCS: 36415; 85025

== ENCOUNTER 2022-09-19 10:46 | Outpatient (RCR) | payer MEDICARE ==
[2022-09-19 11:00] LABS: BASOPHILS # (AUTO) 0.1 10^3/uL (0.0-0.1); BASOPHILS % (AUTO) 1 % (0-10); EOSINOPHILS # (AUTO) 0.1 10^3/uL (0.0-0.3); EOSINOPHILS % (AUTO) 2 % (0-10); HEMATOCRIT 28 % (35-52); LYMPHOCYTES # (AUTO) 1.5 10^3/uL (1.0-4.0); LYMPHOCYTES % (AUTO) 23 % (12-44); MEAN CORPUSCULAR HEMOGLOBIN 29 pg (25-34); MEAN CORPUSCULAR HGB CONC 32 g/dL (32-36); MEAN CORPUSCULAR VOLUME 91 fL (80-99); MONOCYTES # (AUTO) 0.9 10^3/uL (0.0-1.0); MONOCYTES % (AUTO) 14 % (0-12); NEUTROPHILS # (AUTO) 3.8 10^3/uL (1.8-7.8); NEUTROPHILS % (AUTO) 60 % (42-75); PLATELET COUNT 375 10^3/uL (130-400); WHITE BLOOD COUNT 6.4 10^3/uL (4.3-11.0)
[2022-09-19 11:44] LABS: POTASSIUM 4.1 MMOL/L (3.6-5.0)
[2022-09-19 11:45] LABS: CALCIUM 9.8 MG/DL (8.5-10.1); CREATININE SERUM 1.05 MG/DL (0.60-1.30)
== END 2022-10-11 | disposition home or self-care (01) ==
LOC: LAB FS 10:46
PROVIDERS: ATTEND Nurse Practitioner Adult Health
DX: C56.9 Malignant neoplasm of unspecified ovary (principal); C78.6 Secondary malignant neoplasm of retroperitoneum and peritoneum; G60.9 Hereditary and idiopathic neuropathy, unspecified; R97.8 Other abnormal tumor markers
CPT/HCPCS: 36415; 80048; 85025

== ENCOUNTER 2022-10-26 15:44 | Outpatient (RCR) | payer MEDICARE ==
[2022-10-26 16:19] LABS: BASOPHILS # (AUTO) 0.1 10^3/uL (0.0-0.1); BASOPHILS % (AUTO) 1 % (0-10); EOSINOPHILS # (AUTO) 0.1 10^3/uL (0.0-0.3); EOSINOPHILS % (AUTO) 1 % (0-10); HEMATOCRIT 27 % (35-52); HEMOGLOBIN 8.7 g/dL (11.5-16.0); LYMPHOCYTES # (AUTO) 1.2 10^3/uL (1.0-4.0); LYMPHOCYTES % (AUTO) 20 % (12-44); MEAN CORPUSCULAR HEMOGLOBIN 29 pg (25-34); MEAN CORPUSCULAR HGB CONC 33 g/dL (32-36); MEAN CORPUSCULAR VOLUME 89 fL (80-99); MEAN PLATELET VOLUME 9.1 fL (9.0-12.2); MONOCYTES # (AUTO) 0.6 10^3/uL (0.0-1.0); MONOCYTES % (AUTO) 10 % (0-12); NEUTROPHILS # (AUTO) 4.1 10^3/uL (1.8-7.8); NEUTROPHILS % (AUTO) 67 % (42-75); PLATELET COUNT 308 10^3/uL (130-400); WHITE BLOOD COUNT 6.1 10^3/uL (4.3-11.0)
[2022-10-26 16:38] LABS: CALCIUM 9.7 MG/DL (8.5-10.1); CREATININE SERUM 1.03 MG/DL (0.60-1.30)
[2022-11-08] MEDS ORDERED: APIX5TAB PO (13:52)
[2022-11-08] MEDS ORDERED: CEFD300C3 PO (13:52)
[2022-11-08] MEDS ORDERED: RIVA1TAB PO (14:20)
== END 2022-11-11 | disposition home or self-care (01) ==
LOC: LAB FS 15:44
PROVIDERS: ATTEND Internal Medicine Hematology & Oncology
DX: C56.9 Malignant neoplasm of unspecified ovary (principal); C78.6 Secondary malignant neoplasm of retroperitoneum and peritoneum; G60.9 Hereditary and idiopathic neuropathy, unspecified
CPT/HCPCS: 36415; 80048; 85025; 85027

== ENCOUNTER 2022-11-08 11:47 | Emergency (ER) | payer MEDICARE ==
[~2022-11-08] VITALS: Ht 154 cm; Wt 63.0 kg
--- NOTE | 2022-11-08 12:16 | ED Respiratory ---
General Chief Complaint: Respiratory Problems Stated Complaint: SOB Nursing Triage Note: Patient has to ER with cc of ongoing shortness of breath for the last 2 weeks and it is worse the past 24 hours. She did see Dr. Solorzano yesterday and had a chest x-ray, she was sent home from his office. She states that over night her shortness of breath became worse. Source: patient Exam Limitations: no limitations History of Present Illness Date Seen by Provider: Nov 08, 2022 Time Seen by Provider: 11:54 Initial Comments 82-year-old female with past medical history of stage IV ovarian cancer coming in due to shortness of breath. Started feeling as bad 2 weeks ago, worse over the past [address] Hale yesterday, and had a chest x-ray ordered. Sent home from his office, has not had the chest x-ray completed as of yet. Denies ever feeling this way before, no chest pain with it, fever, cough, weakness, numbness, abdominal pain, nausea, vomiting, diarrhea, focal weakness or numbness, or any other concerns. She does endorse some right lower extremity swelling compared to the left which she is unsure how long that has been there. Denies any prior history of DVT or PE. Last received chemotherapy 1 month ago, was supposed to receive it more recently, but Dr. Guzman did not feel like she looked well enough for this. Allergies and Home Medications Allergies Coded Allergies: carboplatin (Verified Allergy, Unknown, 10/16/19) tramadol (Unverified Adverse Reaction, Unknown, Nausea, lethargic, 09/14/21) Patient Home Medication List Home Medication List Reviewed: Yes Acetaminophen (Tylenol Extra Strength) 500 Mg Tablet, 1,000 MG PO Q8H PRN for PAIN-MILD (1-4), (Reported) Entered as Reported by: ISAI WOODWARD on 09/14/21 0913 Alprazolam (Alprazolam) 0.5 Mg Tablet, 0.5 MG PO HS, (Reported) Entered as Reported by: ISAI WOODWARD on 09/14/21 0910 Alprazolam (Alprazolam) 0.5 Mg Tablet, 0.5 MG PO DAILY PRN for ANXIETY, (Reported) Entered as Reported by: ISAI WOODWARD on 09/14/21 09 Amlodipine Besylate (Amlodipine Besylate) 2.5 Mg Tablet, 2.5 MG PO DAILY, (Reported) Entered as Reported by: JOSE M LOPEZ on 09/08/21 110 Apixaban (Eliquis) 5 Mg Tablet, 5 MG PO BID Prescribed by: NANCI VILLA on 11/08/22 1352 Atorvastatin Calcium (Atorvastatin Calcium) 10 Mg Tablet, 10 MG PO DAILY, ( Reported) Entered as Reported by: OSEAS MCKINNEY on 05/30/19 104 Carvedilol (Carvedilol) 25 Mg Tablet, 25 MG PO BID, (Reported) Entered as Reported by: JOSE M LOPEZ on 09/08/21 110 Cefdinir (Cefdinir) 300 Mg Capsule, 300 MG PO BID Prescribed by: NANCI VILLA on 11/08/22 1352 Diphenhydramine HCl (Benadryl) 25 Mg Capsule, 25 MG PO HS, (Reported) Entered as Reported by: ISAI WOODWARD on 09/14/21 09 Gabapentin (Neurontin) 300 Mg Capsule, 300 MG PO HS, (Reported) Entered as Reported by: ISAI WOODWARD on 09/14/21 09 Hydrochlorothiazide (Hydrochlorothiazide) 25 Mg Tablet, 25 MG PO DAILY, (Reported) Entered as Reported by: ISAI WOODWARD on 09/14/21 09 Lactobacillus Rhamnosus GG (Culturelle) 1 Each Capsule, 1 EACH PO DAILY, (Reported) Entered as Reported by: ISAI WOODWARD on 09/14/21 09 Lisinopril (Lisinopril) 40 Mg Tablet, 40 MG PO DAILY, (Reported) Entered as Reported by: OSEAS MCKINNEY on 05/30/19 104 Meloxicam (Meloxicam) 15 Mg Tablet, 15 MG PO DAILY, (Reported) Entered as Reported by: OSEAS MCKINNEY on 05/30/19 104 Pantoprazole Sodium (Protonix) 40 Mg Tablet.dr, 40 MG PO DAILY, (Reported) Entered as Reported by: JOSE M LOPEZ on 09/08/21 110 Review of Systems Review of Systems Constitutional: No fever EENTM: No blurred vision Respiratory: short of breath Cardiovascular: No chest pain Gastrointestinal: No abdominal pain Genitourinary: no symptoms reported Musculoskeletal: see HPI Skin: no symptoms reported Psychiatric/Neurological: No Symptoms Reported Hematologic/Lymphatic: No Symptoms Reported Immunological/Allergic: no symptoms reported All Other Systems Reviewed Negative Unless Noted: Yes Past Ikwmhqb-Izkuna-Jbdtyx Hx Patient Social History Tobacco Use?: No Use of E-Cig and/or Vaping dev: No Substance use?: No Alcohol Use?: No Pt feels they are or have been: Unable to obtain Immunizations Up To Date PED Vaccines UTD: Yes First/Initial COVID19 Vaccinat: Second COVID19 Vaccination Len: Third COVID19 Vaccination Date: Seasonal Allergies Seasonal Allergies: No Past Medical History Surgery/Hospitalization HX: MULTIPLE Surgeries: Yes (melanoma on arm removed; debulking surgery- took part of bladder and colon ) Hysterectomy Respiratory: No Currently Using CPAP: No Currently Using BIPAP: No Cardiac: Yes High Cholesterol, Hypertension Neurological: Yes Neuropathy Sexually Transmitted Disease: No HIV/AIDS: No Genitourinary: Yes Gastrointestinal: Yes Gastroesophageal Reflux Musculoskeletal: Yes Arthritis Endocrine: No HEENT: Yes (GLASSES) Cataract Cancer: Yes Melanoma, Ovarian Did You Recieve Any Treatments: Yes What Type of Treatment Did You: Chemotherapy, Surgical Intervention Psychosocial: No Integumentary: No Blood Disorders: No Adverse Reaction/Blood Tranf: No (N/A) Physical Exam Vital Signs - First Documented 11/08/22 12:03 Temp 35.5 Pulse 92 Resp 26 B/P (MAP) 193/99 (130) Pulse Ox 82 O2 Delivery Room Air O2 Flow Rate 33.00 Capillary Refill : Height: 5'1.00" Weight: 154lbs. 9.0oz. [id number]; 26.00 BMI Method: General Appearance: WD/WN, no apparent distress Eyes: Bilateral Eye Normal Inspection HEENT: PERRL/EOMI, normal ENT inspection, pharynx normal Neck: non-tender, full range of motion, supple, normal inspection Respiratory: chest non-tender, lungs clear, normal breath sounds, no respiratory distress, no accessory muscle use Cardiovascular: regular rate, rhythm, no edema, no murmur Gastrointestinal: normal bowel sounds, non tender, soft; No distended, No guarding Extremities: normal range of motion, normal capillary refill, other (Right lower extremity with more swelling compared to the left, no redness or pain with palpation) Neurologic/Psychiatric: no motor/sensory deficits, alert, normal mood/affect Skin: normal color, warm/dry Lymphatic: no adenopathy Progress/Results/Core Measures Suspected Sepsis SIRS Temperature: Pulse: 92 Respiratory Rate: 26 Laboratory Tests 11/08/22 12:00: White Blood Count 11.6H Blood Pressure 193 /99 Mean: 130 Laboratory Tests 11/08/22 12:00: Creatinine 0.90, INR Comment 1.0, Platelet Count 414H, Total Bilirubin 0.6 Results/Orders Lab Results Laboratory Tests Test 11/08/22 12:00 11/08/22 12:21 Range/Units White Blood Count 11.6 H 4.3-11.0 10^3/uL Red Blood Count 3.67 L 3.80-5.11 10^6/uL Hemoglobin 10.5 L 11.5-16.0 g/dL Hematocrit 33 L 35-52 % Mean Corpuscular Volume 89 80-99 fL Mean Corpuscular Hemoglobin 29 25-34 pg Mean Corpuscular Hemoglobin Concent 32 32-36 g/dL Red Cell Distribution Width 18.6 H 10.0-14.5 % Platelet Count 414 H 130-400 10^3/uL Mean Platelet Volume 8.9 L 9.0-12.2 fL Immature Granulocyte % (Auto) 1 % Neutrophils (%) (Auto) 70 42-75 % Lymphocytes (%) (Auto) 14 12-44 % Monocytes (%) (Auto) 15 H 0-12 % Eosinophils (%) (Auto) 0 0-10 % Basophils (%) (Auto) 0 0-10 % Neutrophils # (Auto) 8.1 H 1.8-7.8 10^3/uL Lymphocytes # (Auto) 1.6 1.0-4.0 10^3/uL Monocytes # (Auto) 1.7 H 0.0-1.0 10^3/uL Eosinophils # (Auto) 0.0 0.0-0.3 10^3/uL Basophils # (Auto) 0.0 0.0-0.1 10^3/uL Immature Granulocyte # (Auto) 0.2 H 0.0-0.1 10^3/uL Prothrombin Time 14.0 12.2-14.7 SEC INR Comment 1.0 0.8-1.4 Activated Partial Thromboplast Time 26 24-35 SEC D-Dimer 6.83 H 0.00-0.49 UG/ML Sodium Level 133 L 135-145 MMOL/L Potassium Level 3.8 3.6-5.0 MMOL/L Chloride Level 95 L 98-107 MMOL/L Carbon Dioxide Level 23 21-32 MMOL/L Anion Gap 15 H 5-14 MMOL/L Blood Urea Nitrogen 14 7-18 MG/DL Creatinine 0.90 0.60-1.30 MG/DL Estimat Glomerular Filtration Rate 63 BUN/Creatinine Ratio 16 Glucose Level 154 H 70-105 MG/DL Calcium Level 10.3 H 8.5-10.1 MG/DL Corrected Calcium 10.5 H 8.5-10.1 MG/DL Magnesium Level 1.5 L 1.6-2.4 MG/DL Total Bilirubin 0.6 0.1-1.0 MG/DL Aspartate Amino Transf (AST/SGOT) 53 H 5-34 U/L Alanine Aminotransferase (ALT/SGPT) 16 0-55 U/L Alkaline Phosphatase 426 H 40-136 U/L Troponin I < 0.30 <0.30 NG/ML Pro-B-Type Natriuretic Peptide 1371.0 H <450.0 PG/ML Total Protein 6.7 6.4-8.2 GM/DL Albumin 3.7 3.2-4.5 GM/DL Influenza Type A (RT-PCR) Not Detected Not Detecte Influenza Type B (RT-PCR) Not Detected Not Detecte SARS-CoV-2 RNA (RT-PCR) Not Detected Not Detecte My Orders Orders - NANCI VILLA MD Cbc With Automated Diff (11/08/22 12:09) Comprehensive Metabolic Panel (11/08/22 12:09) Fibrin Degradation Products (11/08/22 12:09) Magnesium (11/08/22 12:09) Protime With Inr (11/08/22 12:09) Partial Thromboplastin Time (11/08/22 12:09) Influenza A And B By Pcr (11/08/22 12:09) Probnp Fs (11/08/22 12:09) Troponin I Fs (11/08/22 12:09) Ekg Tracing (11/08/22 12:09) Covid 19 Inhouse Test (11/08/22 12:09) Ct Angio Chest W (R/O Pe) (11/08/22 12:09) Iohexol Injection (Omnipaque 350 Mg/Ml 1 (11/08/22 13:00) Received Contrast (Hold Metformin- Contr (11/08/22 13:00) Sodium Chloride Flush (Catheter Flush Sy (11/08/22 13:00) Ns (Ivpb) (Sodium Chloride 0.9% Ivpb Bag (11/08/22 13:00) Enoxaparin Injection (Lovenox Injection) (11/08/22 13:30) Medications Given in ED Current Medications Medications Dose Ordered Sig/Sarah Route Start Time Stop Time Status Last Admin Dose Admin Enoxaparin Sodium 60 mg ONCE ONCE SC 11/08/22 13:30 11/08/22 13:31 DC 11/08/22 13:27 60 MG Iohexol 100 ml ONCE ONCE IV 11/08/22 13:00 11/08/22 13:14 DC 11/08/22 13:13 80 ML Sodium Chloride 10 ml NEEDED PRN IV 11/08/22 13:00 11/08/22 13:14 10 ML Sodium Chloride 100 ml ONCE ONCE IV 11/08/22 13:00 11/08/22 13:14 DC 11/08/22 13:14 100 ML Vital Signs/I&O 11/08/22 11/08/22 12:03 13:43 Temp 35.5 Pulse 92 93 Resp 26 22 B/P (MAP) 193/99 (130) 193/95 Pulse Ox 82 97 O2 Delivery Room Air Nasal Cannula O2 Flow Rate 33.00 4.00 Capillary Refill : Blood Pressure Mean: 130 Progress Note : Progress Note 82-year-old female coming in due to feeling short of breath. The patient was hypoxic to the low 80s, placed on 3 L oxygen via nasal cannula which improved her to the mid 90s. Still having increased work of breathing, increased respiratory rate. Patient does have right lower extremity swelling greater than the left, concern is for DVT. CTA chest ordered and on my interpretation concerning for segmental and subsegmental pulmonary emboli as well as pleural effusion. Given the patient's oxygen requirements and other risk factors, her PESI score is 153 making her very high risk. I discussed with the patient regarding her stage IV cancer as well as new respiratory failure and blood clots. We discussed that she was too weak to get chemotherapy recently, and I do not anticipate her getting better. In fact, she has new metastasis on CT imaging today. I discussed hospice with the patient, and she would like to go home with hospice through [facility]. We will contact them and set this up. I discussed with the patient we will continue to treat her blood clot at home with Eliquis, given I believe it could help her symptoms. ECG Initial ECG Impression Date: Nov 08, 2022 Initial ECG Impression Time: 12:19 Initial ECG Rate: 86 Initial ECG Rhythm: Normal Sinus Comment Narrow QRS, normal axis, no significant ST changes or T wave abnormalities Diagnostic Imaging Diagonstic Imaging: CT Plain Films/CT/US/NM/MRI: chest Comments [facility], [place] NAME: ANDREI LYNN [facility] REC#: [id number] PT STATUS: REG ER : 1940 PHYSICIAN: NANCI VILLA MD ADMIT DATE: 11/08/22/ER FS Draft Date of Exam:11/08/22 CT ANGIO CHEST W (R/O PE) INDICATION: Hypoxia and right lower extremity swelling. Patient also has history of ovarian carcinoma. Comparison is made with a conventional CT chest from 10/21/2021. FINDINGS: Evaluation of the pulmonary arterial system does show thromboemboli, greatest burden on the left side. There are emboli in the left upper lobe segmental branch. There is a filling defect in the left lower lobe lobar as well as segmental pulmonary arteries. Right upper lobe pulmonary arteries are unremarkable. There may be some minimal filling defect within a subsegmental right lower lobe pulmonary arterial branch. No definite right heart strain is seen. There is no central or saddle emboli detected. There is no pericardial fluid. There is a moderate right and small left pleural effusion. There appears to be significant consolidation in the right lower lobe. There is a small area of consolidation in the right middle lobe. Upper abdomen does show development of numerous solid masses throughout the right and left lobes of the liver consistent with hepatic metastatic disease. This is new since prior CT one year earlier. IMPRESSION: 1. Findings consistent with pulmonary emboli, greatest burden on the left side, as described. No definite findings to suggest right heart strain are identified. 2. Moderate right and small left pleural effusions. There is also significant consolidation in the right lower lobe. 3. Development of diffuse hepatic metastatic disease. Results were discussed with Dr. Villa prior to this dictation. Dictated on workstation # [id number] Dict: 11/08/22 1323 Trans: 11/08/22 1341 [id number] Interpreted by: EVERETTE IRAHETA MD Electronically signed by: Departure Impression Primary Impression: Pulmonary emboli Qualified Codes: I26.94 - Multiple subsegmental pulmonary emboli without acute cor pulmonale Additional Impressions: Respiratory failure Qualified Codes: J96.01 - Acute respiratory failure with hypoxia Ovarian cancer Qualified Codes: C56.9 - Malignant neoplasm of unspecified ovary Disposition: HOME, SELF-CARE Condition: Stable Admissions Decision to Admit Reason: Admit from ER (General) Departure-Patient Inst. Decision time for Depature: 13:50 Referrals: VI MCCARTHY MD (PCP) Primary Care Physician Patient Instructions: Pulmonary Embolism (Blood Clot in the Lungs) Add. Discharge Instructions: We discussed given your new blood clots and how your cancer is spreading despite treatment, he would be a candidate for hospice. We contacted [facility] hospice and they should meet you at your house to set up their services. He will be on a blood thinner as well. Please follow-up with your regular doct or to see if they want to continue this past the next month. There is also potential for slight infection developing on your CT imaging. We will start you on an antibiotic as well. Scripts Rivaroxaban (Xarelto Starter Pack) 15 Mg (42)- 20 Mg (9) Tab.ds.pk 1 EACH PO UD, #51 PKG 15mg by mouth twice daily x 21 days then 20mg by mouth daily Prov: NANCI VILLA MD 11/08/22 Cefdinir (Cefdinir) 300 Mg Capsule 300 MG PO BID for 7 Days, #14 CAP 0 Refills Prov: NANCI VILLA MD 11/08/22 NANCI VILLA MD Nov 08, 2022 12:16
[2022-11-08 12:18] LABS: BASOPHILS % (AUTO) 0 % (0-10); EOSINOPHILS % (AUTO) 0 % (0-10); HEMATOCRIT 33 % (35-52); HEMOGLOBIN 10.5 g/dL (11.5-16.0); LYMPHOCYTES # (AUTO) 1.6 10^3/uL (1.0-4.0); LYMPHOCYTES % (AUTO) 14 % (12-44); MEAN CORPUSCULAR HEMOGLOBIN 29 pg (25-34); MEAN CORPUSCULAR HGB CONC 32 g/dL (32-36); MEAN CORPUSCULAR VOLUME 89 fL (80-99); MEAN PLATELET VOLUME 8.9 fL (9.0-12.2); MONOCYTES # (AUTO) 1.7 10^3/uL (0.0-1.0); MONOCYTES % (AUTO) 15 % (0-12); NEUTROPHILS # (AUTO) 8.1 10^3/uL (1.8-7.8); NEUTROPHILS % (AUTO) 70 % (42-75); PLATELET COUNT 414 10^3/uL (130-400); WHITE BLOOD COUNT 11.6 10^3/uL (4.3-11.0)
[2022-11-08 12:47] LABS: BUN/CREATININE RATIO 16; CALCIUM 10.3 MG/DL (8.5-10.1); CARBON DIOXIDE 23 MMOL/L (21-32); CHLORIDE 95 MMOL/L (98-107); GFR ESTIMATED 63; GLUCOSE 154 MG/DL (70-105); POTASSIUM 3.8 MMOL/L (3.6-5.0); SODIUM 133 MMOL/L (135-145)
[2022-11-08 12:48] LABS: ALANINE AMINOTRANSFERASE 16 U/L (0-55); ALBUMIN 3.7 GM/DL (3.2-4.5); ALKALINE PHOSPHATASE 426 U/L (40-136); BILIRUBIN,TOTAL 0.6 MG/DL (0.1-1.0); MAGNESIUM 1.5 MG/DL (1.6-2.4); TOTAL PROTEIN 6.7 GM/DL (6.4-8.2)
[2022-11-08 12:51] LABS: FIBRIN DEGRADATION PRODUCTS 6.83 UG/ML (0.00-0.49)
[2022-11-08] MEDS ORDERED: HOLD METFORMIN - RECEIVED CONTRAST 20 ML VIAL IV SCH (13:00)
[2022-11-08] MEDS ORDERED: NS 100 ML (IVPB) BAG IV ONE (13:00)
[2022-11-08] MEDS ORDERED: IOHEXOL 350 MG/ML 100 ML (OMNIPAQUE 350) VIAL IV ONE (13:00)
[2022-11-08] MEDS ORDERED: CATHETER FLUSH 10 ML SYR IV PRN (13:00)
[2022-11-08] MEDS ORDERED: ENOXAPARIN 60 MG/0.6 ML (LOVENOX) SYR SC ONE (13:30)
--- NOTE | 2022-11-08 13:41 | Diagnostic Imaging Report ---
INDICATION: Hypoxia and right lower extremity swelling. Patient also has history of ovarian carcinoma. Comparison is made with a conventional CT chest from 10/21/2021. FINDINGS: Evaluation of the pulmonary arterial system does show thromboemboli, greatest burden on the left side. There are emboli in the left upper lobe segmental branch. There is a filling defect in the left lower lobe lobar as well as segmental pulmonary arteries. Right upper lobe pulmonary arteries are unremarkable. There may be some minimal filling defect within a subsegmental right lower lobe pulmonary arterial branch. No definite right heart strain is seen. There is no central or saddle emboli detected. There is no pericardial fluid. There is a moderate right and small left pleural effusion. There appears to be significant consolidation in the right lower lobe. There is a small area of consolidation in the right middle lobe. Upper abdomen does show development of numerous solid masses throughout the right and left lobes of the liver consistent with hepatic metastatic disease. This is new since prior CT one year earlier. IMPRESSION: 1. Findings consistent with pulmonary emboli, greatest burden on the left side, as described. No definite findings to suggest right heart strain are identified. 2. Moderate right and small left pleural effusions. There is also significant consolidation in the right lower lobe. 3. Development of diffuse hepatic metastatic disease. Results were discussed with Dr. Marrero prior to this dictation. Dictated by: Dictated on workstation # [id number]
[2022-11-08 13:43] VITALS: BP 193/95
[2022-11-08] MEDS ORDERED: APIX5TAB PO (13:52)
[2022-11-08] MEDS ORDERED: CEFD300C3 PO (13:52)
[2022-11-08] MEDS ORDERED: RIVA1TAB PO (14:20)
[2022-11-08] MEDS ORDERED: RIVAROXABAN 15 MG TABLET (XARELTO) ONE (15:21)
== END 2022-11-08 15:50 | disposition home or self-care (01) ==
LOC: EDUNIT# 11:47 → ER FS 11:48
DX: I26.99 Other pulmonary embolism without acute cor pulmonale (principal); J96.90 Respiratory failure, unspecified, unspecified whether with hypoxia or hypercapnia; C80.1 Malignant (primary) neoplasm, unspecified; Z79.02 Long term (current) use of antithrombotics/antiplatelets; Z20.822 Contact with and (suspected) exposure to COVID-19
CPT/HCPCS: 36415; 71275; 80053; 83735; 83880; 84484; 85025; 85379; 85610; 85730; 87636; 93005; Q9967